=== PATIENT | female | born 1970 | race Caucasian/White ===

== ENCOUNTER → 2017-09-14 09:47 | Outpatient (CLI) | payer OTHER, SELFPAY ==
--- NOTE | 2017-09-14 09:50 | US_ITS ---
STUDY: ULTRASOUND BREAST - RIGHT REASON FOR EXAM: Female, 47 years old. Palpable lump in the right breast. TECHNIQUE: Axial and longitudinal images of the RIGHT breast were performed with a high resolution ultrasound transducer. COMPARISON: Comparison is made with prior mammogram than earlier today. FINDINGS: RIGHT Breast: The palpable abnormality corresponds to a 1.7 cm x 1.1 cm irregular lobulated hypoechoic nodular mass at the 1:00 position breast at 5 cm from nipple. This lies anterior to the breast implant. Increased flow is seen within it. A biopsy is recommended for further evaluation. US/Breast Limited Unilateral IMPRESSION: 1.7 cm x 1.1 cm suspicious hypoechoic nodule at the 1:00 position in the breast at 5 cm from the nipple. A biopsy is recommended. ASSESSMENT CATEGORY: BIRADS Category 4: Suspicious - Biopsy Should Be Considered. A letter regarding these results will be sent to the patient by the facility within 30 days. Electronically Signed: Jacques Lockwood MD at 12:42 EDT Tel [phone], Service support ,
--- NOTE | 2017-09-14 10:03 | BI_ITS ---
MAMMOGRAPHY - BILATERAL DIAGNOSTIC REASON FOR EXAM: Female, 47 years old. One-month history of right breast lump at the 12 to 1:00 position in the breast. Bilateral breast implants. PERTINENT HISTORY: Non-contributory. TECHNIQUE: Digital bilateral breast terell (3D mammographic acquisition) in the CC and MLO projections. 2-D mediolateral oblique (MLO) and craniocaudad (CC) views of both breasts were obtained. CAD: Full Field Digital Mammography with Computer Added Detection was performed. COMPARISON: Comparison is made with prior study dated February 17, 2013 and February 14, 2012. FINDINGS: Breast Composition: The breasts are heterogeneously dense, which may obscure small masses. There are no dominant masses or suspicious calcifications. Lateral breast implants are seen. These are unchanged. No other significant abnormalities are identified. There has been no significant change since the prior study. BI/DIAG MAMM W/CAD, BILAT IMPRESSION: Stable bilateral diagnostic mammogram. With the patient's history of a palpable abnormality in the right breast, correlation with an ultrasound of the right breast is recommended. ASSESSMENT CATEGORY: BIRADS Category 0: Incomplete. Need additional imaging evaluation. A letter regarding these results will be sent to the patient by the facility within 30 days. Approximately 10% of breast cancers are not detected by mammography. A normal mammogram should not delay biopsy of a clinically suspicious abnormality. Electronically Signed: Jacques Lockwood MD at 12:36 EDT Tel [phone], Service support ,
== END ==
PROVIDERS: Visit Provider Obstetrics & Gynecology
DX: N63.10 Unspecified lump in the right breast, unspecified quadrant (principal)
CPT/HCPCS: 76642; 77062; 77066; G0279

== ENCOUNTER → 2017-09-25 14:00 | Outpatient (CLI) | payer OTHER, SELFPAY ==
--- NOTE | 2017-09-25 | IMM_PTH ---
PATIENT: CAMILA LANDIS LOC: [facility] U#:[id number] AGE/SX: 54/F ROOM: RE09/25/[address]: Dr. Dain Melo MD : 1970 BED: DIS: SPEC #: [id number] RECD: 09/27/17 12:30 STATUS: HAYDE RENael #: [id number] SHELDON: 09/25/17 00:[address]: Dain Melo DEPT: IMMUNOHISTOCHEMISTRY RECD BY: Mayra Nixon Tissues: Right breast, NOS Procedures: CALPONIN-1 (add) CK5-6 (add) CK8 (add) E-CAD (add) HER2 NEVA (add) KI-67 (add) P53 (add) WI (add) IN SITU HYBRIDIZATION P40 (add) ER (initial) PHYSICIAN & INSTITUTION [place] [address] SPECIMEN INFORMATION: Tissue Source: Right breast Clinical Info: Right breast palpable lump Specimen Number: [id number] CPT code: 75685, 39990 x6, 49657 x3 METHODOLOGY: Deparaffinized sections of prefer/formalin-fixed tissue or PAP/DQ stained slides are incubated with monoclonal/polyclonal antibodies/oligonucleotide probes. Localization is made via biotin free immunoperoxidase method. Appropriate controls are performed and reacted as expected. Results on target cell population are indicated in the following table: RESULTS: ANTIBODY / CLONE RESULT P53 (DO-7) Ki-67 (30-9) positive, low CK8 ([id number]) positive CK5-6 (D5 & 1684) negative Calponin-1 (XT788H) negative P40 (BC28) negative E-Cad (ECH-6) positive MORPHOMETRIC ANALYSIS ER (clone 6F11) >95%, strong WI (clone 16/1E2) 82%, moderate Her-2Neu (clone CB11) 1-2+ The prognostic test for HER2 is performed on formalin-fixed paraffin embedded tissue. A 3+ (positive) staining pattern is defined as intense, homogeneous, complete, circumferential membranous staining in >10% of contiguous tumor cells. A similar weak (2+) staining pattern is interpreted as equivocal. ALEKSANDAR follow-up testing is recommended for all equivocal cases. Positivity/negativity for ER/WI is reported if > or < 1% of the tumor cells are immuno- reactive, respectively. The ASCO/CAP criteria is used for scoring. Reference: Journal of Clinical Oncology, 2013; 31:5987-4415 & 2010; 16:2686-7816. Duration of fixation: __ Hrs; Sample Adequate: Yes. These assays have not been validated on decalcified tissues. Results should be interpreted with caution given the likelihood of false negativity on decalcified specimens. These tests were developed and their performance characteristics determined by [facility]. They may not have been cleared or approved by the U.S. Food and Drug Administration. The FDA has determined that such clearance or approval is not necessary. 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 Positive for estrogen receptors (favorable prognostic indicator). Positive for progesterone receptors (favorable prognostic indicator). Equivocal for overexpression of RMY7rja. AM:martín 09/28/17 ADDENDUM ADDENDUM ADDENDUM ADDENDUM ADDENDUM ADDENDUM ADDENDUM ADDENDUM ADDENDUM ADDENDUM ADDENDUM ADDENDUM ADDENDUM ADDENDUM ADDENDUM ADDENDUM ADDENDUM ADDENDUM ADDENDUM ADDENDUM ADDENDUM 10/03/2017 09:54 ADDENDUM 10/03/2017 09:54 ADDENDUM 10/03/2017 09:54 ADDENDUM 10/03/2017 09:54 ADDENDUM 10/03/2017 09:54 IN SITU HYBRIDIZATION (ALEKSANDAR) FOR HER2 Interpretation: Not Amplified HER2 : CEP-17 Ratio: 1.81 Average HER2 Signal: 2.9 Average CEP-17 Signal: 1.6 Number of Tumor Cells Scanned: 50 Interpretative Information: The INFORM HER2 Dual ALEKSANDAR DNA Probe Cocktail assay is performed on formalin-fixed paraffin embedded tissue and determines HER2 gene status by detecting HER2 copies via silver in situ hybridization (SISH) and Chromosome 17 copies via chromogenic red in situ hybridization on tumor cells. A minimum of 20 cells representing > 10% of contiguous and homogeneous invasive tumor cells were analyzed. HER2 gene status is classified as Non-amplified (HER2/Chr17 ratio < 2.0) or Amplified (HER2/Chr17 ratio greater than or equal to 2.0). If the resulting HER2/Chr17 ratio falls within 1.8 - 2.2 (Borderline), retesting by FISH is recommended. Reference: Marleny AC, Dena RUSH, Yoli FOURNIER, et al: Recommendations for Human Epidermal Growth Factor Receptor 2 Testing in Breast Cancer: [place] [employer] of Clinical On[employer] / [employer] [place] [employer] Clinical Practice Guideline Update. J Clin Oncol 31:3900-8163, 2013.
--- NOTE | 2017-09-25 | BRBX_PTH ---
PATIENT: CAMILA LANDIS LOC: [facility] U#:[id number] AGE/SX: 54/F ROOM: RE09/25/[address]: Dr. Dain Melo MD : 1970 BED: DIS: SPEC #: [id number] RECD: 09/26/17 11:40 STATUS: HAYDE MITRA #: [id number] SHELDON: 09/25/17 00:[address]: Dain Melo DEPT: SURGICAL PATHOLOGY RECD BY: Marixa Henning Tissues: Right breast, NOS Procedures: Surgery Specimen Level IV HEADER OPERATION: Ultrasound-guided right breast biopsy PRE-OP DIAGNOSIS: Right breast palpable lump TISSUE SUBMITTED: Right breast biopsy ISCHEMIC TIME: 1 minute MICROSCOPIC DIAGNOSIS Right breast, ultrasound-guided core biopsy: Invasive ductal carcinoma: Maximal length - 8 mm Nuclear grade ? 2/3 AM:martín 09/27/17 COMMENT ER/SD/Pag4fda studies are being performed on sections of tumor and the results from this study will be reported separately ([id number]). MICROSCOPIC DESCRIPTION Slides are reviewed. GROSS DESCRIPTION Received in fixative is one container labeled with the patient's name and designated right breast. The specimen consists of multiple irregular and elongated fragments of yellow-white soft tissue that in aggregate measure 1.2 x 0.7 x 0.1 cm. The specimen is totally submitted in one cassette. / AM:martín 09/26/17 TC:0 CPT: 26331 ADDENDUM ADDENDUM ADDENDUM ADDENDUM ADDENDUM ADDENDUM ADDENDUM ADDENDUM ADDENDUM ADDENDUM 11/14/2017 14:17 ADDENDUM 11/14/2017 14:17 ADDENDUM 11/14/2017 14:17 ADDENDUM 11/14/2017 14:17 ADDENDUM 11/14/2017 14:17 This addendum is added to incorporate an outside pathology consultation report. The case was examined at [facility] (#[id number]) and the following diagnosis was rendered. Right breast, ultrasound-guided core biopsy: Invasive mammary carcinoma, nuclear grade 2. Please see complete above mentioned consultation report in EMR
== END ==
PROVIDERS: Visit Provider Surgery
DX: C50.911 Malignant neoplasm of unspecified site of right female breast (principal)
CPT/HCPCS: 88305; 88341; 88342; 88368

== ENCOUNTER → 2018-02-25 16:29 | Outpatient (CLI) | payer OTHER, SELFPAY ==
[2018-02-25 17:33] LABS: Absolute Lymphocyte Count 1.75 X10^3/ul (0.83-4.51); Absolute Neutrophil Count 4.8 X10^3/uL (2.0-7.7); Basophil# 0.02 X10^3/uL; Basophil% 0.3 % (0-1); Eosinophil# 0.12 X10^3/uL; Eosinophils% 1.7 % (0-5); Hematocrit 39.5 % (37-47); Hemoglobin 12.8 g/dl (12.0-15.0); Lymphocyte # 1.75 X10^3/ul (4.0); Mean Corp Hgb Conc 32.4 g/gl (32-36); Mean Corpuscular Volume 89.4 fL (81-99); Mean Platelet Vol. 10.1 fl (6.2-12.0); Monocyte# 0.33 X10^3/uL; Monocyte% 4.7 % (0-10); Neutrophil # 4.78 X10^3/uL (2.7-7.7); Neutrophil % 68.2 % (47-70); POSITIVE COUNT NO; POSITIVE DIFFERENTIAL NO; POSITIVE MORPHOLOGY NO; Platelet Count 251 K/mm3 (150-450); RBC Distribution Width CV 13.5 % (11.6-14.6); RBC Distribution Width SD 44.3 fl (35.1-43.9); Red Blood Count 4.42 M/mm3 (4.2-5.4)
[2018-02-25 17:47] LABS: ALB/GLOB Ratio 1.1 RATIO (0.9-2.4); AST(SGOT) 13 U/L (15-37); Alanine Aminotransfer ALT/SGPT 16 U/L (13-56); Albumin, Serum 4.1 g/dL (3.2-5.0); Alkaline Phosphatase 88 U/L (45-117); Anion Gap 7 (5-15); BUN 9 mg/dL (7-18); BUN/Creat Ratio 12.2 RATIO (10-20); Calcium,Total 8.7 mg/dL (8.5-10.1); Chloride 105 mmol/L (98-107); Creatinine, Serum 0.74 mg/dL (0.55-1.02); EST Glomerular Filtration Rate 89 mL/min (>60); Est Glom Filt Rate - Afr Amer 108 mL/min (>60); Globulin 3.7 g/dL (2.2-4.2); Glucose 82 mg/dL (74-106); Potassium 3.3 mmol/L (3.5-5.1); Protein, Total 7.8 g/dL (6.4-8.2); Sodium Level 141 mmol/L (136-145)
== END ==
PROVIDERS: Visit Provider Family Medicine
DX: Z01.818 Encounter for other preprocedural examination (principal)
CPT/HCPCS: 36415; 80053; 85025

== ENCOUNTER → 2018-12-13 16:01 | Outpatient (CLI) | payer OTHER, SELFPAY ==
[2018-12-13 10:52] VITALS: BMI 29.4
[2018-12-20 11:42] LABS: HPV APTIMA, High Risk Negative (Negative)
== END ==
PROVIDERS: Referring Provider Obstetrics & Gynecology; Visit Provider Obstetrics & Gynecology
DX: Z12.4 Encounter for screening for malignant neoplasm of cervix (principal); N76.0 Acute vaginitis
CPT/HCPCS: 87070; 87205; 87624; 88175; G0145

== ENCOUNTER → 2018-12-19 12:11 | Outpatient (CLI) | payer OTHER, SELFPAY ==
[2018-12-13 10:52] VITALS: BMI 29.4
--- NOTE | 2018-12-19 12:13 | US_ITS ---
STUDY: ULTRASOUND TRANSVAGINAL CLINICAL: Female, 48 years old. Abnormal uterine bleeding. Bleeding with intercourse. TECHNIQUE: Transvaginal COMPARISON: None. FINDINGS: Uterus is anteverted and midline, measuring 6.0 x 4.5 x 2.6 cm. There are no myometrial masses. Normal endometrial thickness measuring 3 mm. Endometrium is hyperechoic. There are no endometrial masses, and there is no fluid in the endometrial cavity. Normal uterine cervix. 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 There is no evidence of adnexal mass. There is no free fluid in the pelvis. US/Pelvic (Non ) IMPRESSION: 1. Normal appearing uterus. 2. Nonvisualization of the ovaries in keeping with evidence of bilateral oophrectomy. There is no evidence of adnexal mass. Electronically Signed: Nash Case DO at 17:23 EDT Tel [phone], Service support ,
--- NOTE | 2018-12-19 12:35 | US_ITS ---
STUDY: ULTRASOUND TRANSVAGINAL CLINICAL: Female, 48 years old. Abnormal uterine bleeding. Bleeding with intercourse. TECHNIQUE: Transvaginal COMPARISON: None. FINDINGS: Uterus is anteverted and midline, measuring 6.0 x 4.5 x 2.6 cm. There are no myometrial masses. Normal endometrial thickness measuring 3 mm. Endometrium is hyperechoic. There are no endometrial masses, and there is no fluid in the endometrial cavity. Normal uterine cervix. 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 There is no evidence of adnexal mass. There is no free fluid in the pelvis. US/Transvaginal Non- IMPRESSION: 1. Normal appearing uterus. 2. Nonvisualization of the ovaries in keeping with evidence of bilateral oophrectomy. There is no evidence of adnexal mass. Electronically Signed: Nash Case DO at 17:23 EDT Tel [phone], Service support ,
== END ==
PROVIDERS: Family Provider Family Medicine; PCP Family Medicine; Referring Provider Obstetrics & Gynecology; Visit Provider Obstetrics & Gynecology
DX: N93.9 Abnormal uterine and vaginal bleeding, unspecified (principal)
CPT/HCPCS: 76830; 76856

== ENCOUNTER 2021-07-04 18:39 | Outpatient (CLI) | payer OTHER, SELFPAY | END 2021-07-04 23:59 | disposition short-term general hospital (02) | PROVIDERS: PCP Family Medicine; Visit Provider Family Medicine | DX: U07.1 COVID-19 (principal) | CPT/HCPCS: 87635; U0003; U0005 ==

== ENCOUNTER → 2022-08-03 | Outpatient (CLI) | payer OTHER, SELFPAY ==
[2022-08-12 12:33] LABS: HPV APTIMA, High Risk Negative (Negative)
== END | disposition home or self-care (01) ==
PROVIDERS: PCP Family Medicine; Visit Provider Obstetrics & Gynecology
DX: Z12.4 Encounter for screening for malignant neoplasm of cervix (principal)
CPT/HCPCS: 87624; 88175; G0145

== ENCOUNTER → 2022-10-06 | Outpatient (CLI) | payer OTHER, SELFPAY ==
--- NOTE | 2022-10-06 06:49 | EKG12_ITS ---
Test Reason : HIGH CHOLESTEROL Blood Pressure : / mmHG Vent. Rate : 070 BPM Atrial Rate : 070 BPM P-R Int : 160 ms QRS Dur : 072 ms QT Int : 422 ms P-R-T Axes : 059 044 055 degrees QTc Int : 455 ms Normal sinus rhythm Normal ECG No previous ECGs available Confirmed by KIM KRAUSE, ZAY ([id number]), editor at large GIORGIO CLEARY ([id number]) on 10/09/2022 2:31:59 PM Referred By: Alexia Porter Confirmed By:ELODIA ALVAREZ MD
[2022-10-06 07:24] LABS: Absolute Neutrophil Count 3.2 X10^3/uL (2.0-7.7); Basophil# 0.02 X10^3/uL; Basophil% 0.4 % (0-1); Eosinophil# 0.11 X10^3/uL; Eosinophils% 2.3 % (0-5); Hematocrit 40.6 % (37-47); Lymphocyte % 25.2 % (19-41); Mean Corpuscular Hgb 29.7 pg (27.0-32.0); Mean Corpuscular Volume 92.7 fL (81-99); Mean Platelet Vol. 10.5 fl (6.2-12.0); Monocyte# 0.28 X10^3/uL; Monocyte% 5.9 % (0-10); NRBC Flagged by Analyzer 0 % (0-5); Neutrophil # 3.15 X10^3/uL (2.7-7.7); Platelet Count 226 K/mm3 (150-450); RBC Distribution Width CV 12.8 % (11.6-14.6); RBC Distribution Width SD 43.7 fl (35.1-43.9); Red Blood Count 4.38 M/mm3 (4.2-5.4); White Blood Count 4.8 K/mm3 (4.4-11.0)
[2022-10-06 08:08] LABS: Vitamin D,25 Hydroxy 45.8 ng/mL
[2022-10-06 08:18] LABS: Hemoglobin A1c 5.4 % (3.8-5.6)
[2022-10-06 08:19] LABS: AST(SGOT) 14 U/L (15-37); Alanine Aminotransfer ALT/SGPT 20 U/L (13-56); Albumin, Serum 3.6 g/dL (3.2-5.0); Alkaline Phosphatase 73 U/L (45-117); Anion Gap 4 (5-15); BUN 14 mg/dL (7-18); BUN/Creat Ratio 19.6 RATIO (10-20); Calcium,Total 8.8 mg/dL (8.5-10.1); Chloride 108 mmol/L (98-107); Cholesterol 227 mg/dL (200); Creatinine, Serum 0.72 mg/dL (0.55-1.02); EST Glomerular Filtration Rate 91 mL/min (>60); Est Glom Filt Rate - Afr Amer 110 mL/min (>60); Globulin 3.7 g/dL (2.2-4.2); Glucose 110 mg/dL (74-106); High Density Lipoprotein 59 mg/dL; Potassium 3.9 mmol/L (3.5-5.1); Protein, Total 7.3 g/dL (6.4-8.2); Sodium Level 142 mmol/L (136-145); Triglycerides 119 mg/dL; Very Low Density Lipoprotein 24 mg/dL (5-40)
== END | disposition home or self-care (01) ==
PROVIDERS: PCP Family Medicine; Referring Provider Obstetrics & Gynecology; Visit Provider Obstetrics & Gynecology
DX: E78.00 Pure hypercholesterolemia, unspecified (principal)
CPT/HCPCS: 36415; 80053; 80061; 82306; 83036; 85025; 93005

== ENCOUNTER → 2023-12-11 | Outpatient (CLI) | payer OTHER, SELFPAY ==
[2023-12-14 20:07] LABS: HPV APTIMA, High Risk Negative (Negative)
== END | disposition home or self-care (01) ==
LOC: LABSPEC 16:08
PROVIDERS: Referring Provider Obstetrics & Gynecology; Visit Provider Obstetrics & Gynecology
DX: Z78.0 Asymptomatic menopausal state (principal)
CPT/HCPCS: 87624; 88175; G0145

== ENCOUNTER → 2024-02-22 | Outpatient (CLI) | payer OTHER, SELFPAY ==
[2024-02-22 09:49] LABS: Vitamin D,25 Hydroxy 25.1 ng/mL
[2024-02-22 09:55] LABS: Cholesterol 206 mg/dL (200); Glucose 95 mg/dL (74-106); High Density Lipoprotein 74 mg/dL; Triglycerides 93 mg/dL; Very Low Density Lipoprotein 19 mg/dL (5-40)
[2024-02-22 10:04] LABS: Hemoglobin A1c 5.3 % (3.8-5.6)
== END | disposition home or self-care (01) ==
LOC: LAB 08:41
PROVIDERS: PCP Family Medicine; Referring Provider Obstetrics & Gynecology; Visit Provider Obstetrics & Gynecology
DX: Z13.29 Encounter for screening for other suspected endocrine disorder (principal); Z13.220 Encounter for screening for lipoid disorders; Z13.1 Encounter for screening for diabetes mellitus; Z13.21 Encounter for screening for nutritional disorder
CPT/HCPCS: 36415; 80061; 82306; 82947; 83036; 84443

== ENCOUNTER → 2025-01-01 | Outpatient (CLI) | payer OTHER, SELFPAY ==
[2025-01-01 10:18] LABS: Hematocrit 41.9 % (37-47); Hemoglobin 13.5 g/dL (12.0-15.0); Immature Granulocytes Count 0.020 X10^3/uL (0.0-0.0); Mean Corp Hgb Conc 32.2 g/dL (32-36); Mean Corpuscular Volume 91.7 fL (81-99); Mean Platelet Vol. 10.4 fl (6.2-12.0); NRBC Flagged by Analyzer 0 % (0-5); Platelet Count 243 K/mm3 (150-450); RBC Distribution Width CV 12.9 % (11.6-14.6); RBC Distribution Width SD 43.4 fl (35.1-43.9); Red Blood Count 4.57 M/mm3 (4.2-5.4); White Blood Count 5.3 K/mm3 (4.4-11.0)
--- OUTSIDE RECORDS SUMMARY | 2025-01-01 10:26 | XMS RPT_ITS | CCD ---
Author Organization [facility] Care Team Providers Care Senior Sales Operations Manager Name Role Phone Alexia Porter MD Unavailable [phone] Zeny Ricardo MD Primary Care Provider Fausto JULIEN, Breanna Unavailable Unavailable Zeny Ricardo MD Primary Care Provider Fausto JULIEN, Breanna Unavailable Unavailable Dr. Toshia Kingsley Primary Care Provider Dr. Toshia Kingsley Referring Provider [phone] Alexia Porter Attending Provider Zeny Ricardo MD Primary Care Provider Fausto JULIEN, Breanna Unavailable Unavailable Mellisa BINGO MANAGER, Elizabeth Unavailable [phone] Toshia Kingsley Primary Care Provider Dr. Toshia Kingsley Referring Provider [phone] Alexia Porter Attending Provider [phone] Dr. Jimmie Ricardo Primary Care Provider [phone] Dr. Ye Cisneros Attending Provider [phone] Dr. Alexia Porter Referring Provider Zeny Ricardo MD Primary Care Provider Fausto JULIEN, Breanna Unavailable Unavailable Zeny Ricardo MD Primary Care Provider Mellisa BINGO MANAGER, Elizabeth Unavailable [phone] LENA FLEMING Referring Unavailable ZENY RICARDO Primary Care UnavailLENA Coffman Attending Unavailable LENA FLEMING Referring Unavailable RANNEY, CHRISTOPHER B Primary Care Unavailabl e GOOD, HUMA Referring Unavailable RANNEY, CHRISTOPHER B Primary Care Unavailabl e GOOD, HUMA Referring Unavailable RANNEY, CHRISTOPHER B Primary Care Unavailabl LENA Vanessa Attending Unavailable RANNEY, CHRISTOPHER B Primary Care Unavailabl e DAVION, CHRISTOPHER B Primary Care Unavailabl e RODRI SYED Attending Unavailable Davion KRAUSE, Dr. Tillman Primary Care Provider Dr. Zeny Ricardo MD Referring Provider [phone] Matt VP DIRECTOR OF CREATIVE STRATEGY-C, Janet Attending Provider [phone] Alexia Porter Attending Unavailable Ranney, [facility] Primary Care Unavailable Ranney, Christopher Referring Unavailable Janet Gutierrez Attending Unavailable Ranney, Christopher Referring Unavailable Ranney, [facility] Primary Care Unavailable Janet Gutierrez Attending Unavailable Ranney, Christopher Referring Unavailable Ranney, [facility] Primary Care Unavailable Janet Gutierrez Attending Unavailable Ranney, Christopher Referring Unavailable Ranney, [facility] Primary Care Unavailable Alexia Porter Attending Unavailable Care Physician, No Primary Primary Care Unava ilable Care Physician, No Primary Referring Unava ilable Alexia Porter Attending Unavailable Alexia Porter Referring Unavailable Ranney, [facility] Primary Care Unavailable Alexia Porter Attending Unavailable Ranney, [facility] Primary Care Unavailable Ranney, Christopher Referring Unavailable Allergies Allergy Classification Reported Allergen(s) Allergy Type Date of Onset Reaction(s) Facility (20 sources) Promethazine; Translations: [PROMETHAZINE] Drug Allergy 1 Mental Status Change [facility] (1 source) Promethazine Drug Allergy 5 [facility] Repository Medications Current Medications Medication Drug Class(es) Dates Sig (Normalized) Sig (Original) amoxicillin 875 mg / clavulanate 125 mg oral tablet (1 source) Penicillin-class Antibacterial Start: 11-02-2021 End: 11-09-2021 take 1 tablet by mouth twice daily amoxicillin-clavulan ic acid (AUGMENTIN) 875-125 mg per tablet Take 1 tablet by mouth twice daily for 7 days. 14 tablet 0 11/02/2021 11/09/2021 Active Comment on above: Take 1 tablet by elvis th twice daily for 7 days. Calcium Carb, Citrate-Vit D3 (Citracal-D3 Slow Release) 600 mg-12.5 mcg (500 unit) tablet extended release (2 sources) Start: 11-02-2023 Calcium Carb, Citrate-Vit D3 (Citracal-D3 Slow Release) 600 mg-12.5 mcg (500 unit) tablet extended release Active {tbl} PO November 02, 2023 12:00am calcium citrate/vitamin D3 (CITRACAL + D ORAL) (11 sources) calcium citrate/vitamin D3 (CITRACAL + D ORAL) Take by mouth once daily. Active cholecalciferol 1.25 mg oral capsule (2 sources) Vitamin D Start: 11-18-2024 take 1 capsule by mouth every week Cholecalciferol (Vitamin D3) 1,250 mcg (50,000 unit) capsule Active 1250 ug PO EVERY WEEK November 18, 2024 12:00am iv contrast (will be provided with radiology test) (4 sources) Start: 04-04-2024 End: 04-05-2024 iv contrast (will be provided with radiology test) MRI Breast DANK Inject, intravenously, once for 1 dose. No IV access, insert saline lock prior to the beginning of sedation, infusion, injection of imaging exam. Discontinue saline lock post exam. If Pt has a central line or IVAD, may access for administration according to line specific nursing protocol. Once exam is complete flush line and de-access according to line specific nursing protocol in the MR contrast administration guidelines link 1 Each 04/04/2024 04/05/2024 Active Start: 03-30-2023 End: 03-31-2023 iv contrast (will be provide d with radiology test) MRI Breast DANK Inject, intravenously, once for 1 dose. No IV access, insert saline lock prior to the beginning of sedation, infusion, injection of imaging exam. Discontinue saline lock post exam. If Pt has a central line or IVAD, may access for administration according to line specific nursing protocol. Once exam is complete flush line and de-access according to line specific nursing protocol in the MR contrast administration guidelines link 1 Each 0 03/30/2023 03/31/2023 Active Start: 03-17-2022 End: 03-18-2022 iv contrast (will be provide d with radiology test) MRI Breast DANK Inject, intravenously, once for 1 dose. No IV access, insert saline lock prior to the beginning of sedation, infusion, injection of imaging exam. Discontinue saline lock post exam. If Pt has a central line or IVAD, may access for administration according to line specific nursing protocol. Once exam is complete flush line and de-access according to line specific nursing protocol in the MR contrast administration guidelines link 1 Each 0 03/17/2022 03/18/2022 Active Comment on above: MRI Breast DANK Injec t, intravenously, once for 1 dose. No IV access, insert saline lock prior to the beginning of sedation, infusion, injection of imaging exam. Discontinue saline lock post exam. If Pt has a central line or IVAD, may access for administration according to line specific nursing protocol. Once exam is complete flush line and de-access according to line specific nursing protocol in the MR contrast administration guidelines link Multivitamin preparation (2 sources) Start: 08-04-19 take 1 tablet by mouth once daily Multivitamin Active 1 TABLET PO DAILY August 03, 2022 1:00am Start: 08-03-2022 take 1 tablet by elvis th once daily Multivitamin Active 1 TABLET PO DAILY August 03, 2022 12:00am nitrofurantoin, macrocrystals 25 mg / nitrofurantoin, monohydrate 75 mg oral capsule (2 sources) Nitrofuran Antibacterial Start: 10-07-2024 End: 10-12-2024 take 1 capsule by mouth twice daily nitrofurantoin monohydrate and macrocrystal (MACROBID) 100 mg capsule Indications: Urinary tract infection without hematuria, site unspecified Take 1 capsule by mouth two times a day for 5 days. 10 capsule 10/07/2024 10/12/2024 Active phentermine hydrochloride 37.5 mg oral tablet (20 sources) Sympathomimetic Amine Anorectic Start: 11-02-2023 End: 11-18-2024 Phentermine (Adipex-P) 37.5 mg tablet Active 18.75 mg PO daily 16 November 18, 2024 1:43pm BMI 24 starting BMI was 32 Start: 11-30-2022 End: 11-02-2023 Phentermine (Adipex-P) 37.5 mg tablet Discontinued 18.75 mg PO daily 15 August 27, 2023 11:02am November 02, 2023 10:33pm BMI 25 take 0.5 tablet by m outh once daily phentermine HCl (PHENTERMINE ORAL) Take 0.5 tablets by mouth once daily. Active take 0.5 tablet by m outh once daily phentermine HCl (PHENTERMINE ORAL) Take 0.5 tablets by mouth once daily. 0 Active Comment on above: Take 0.5 tablets by mouth once daily. Ynronzt-Bieh-Iiduv-Oreg -Capryl (2 sources) Start: 08-03-2022 Bjcjlrl-Rvwv-Jiglj-Or eg-Capryl Active CAP PO August 03, 2022 1:00am Start: 08-03-2022 Iflxana-Pbir-U cwjj-Efxb-Ejbcyp Active CAP PO August 03, 2022 12:00am Completed/Discontinued Medications Medication Drug Class(es) Dates Sig (Normalized) Sig (Original) ergocalciferol 1.25 mg oral capsule (3 sources) Provitamin D2 Compound Start: 11-03-2024 End: 05-02-2025 take 1 capsule by mouth every week, then take 1 capsule by mouth two times weekly ergocalciferol 50,000 unit capsule (VITAMIN D2, DRISDOL) Take 1 capsule by mouth one time a week. TAKE ONE TWICE WEEKLY - RECHECK LEVEL IN 2 MONTHS 12 capsule 1 11/03/2024 11/03/2024 Discontinued exemestane 25 mg oral tablet (5 sources) Aromatase Inhibitor Start: 12-13-2018 End: 08-03-2022 take 1 tablet by mouth once daily Exemestane (Aromasin) 25 mg tablet Discontinued 25 mg PO DAILY December 13, 2018 12:00am August 03, 2022 5:21pm letrozole 2.5 mg oral tablet (5 sources) Aromatase Inhibitor Start: 07-25-2021 End: 03-17-2022 take 1 tablet by mouth once daily letrozole (FEMARA) 2.5 mg tablet Take 1 tablet by mouth once daily. 90 tablet 3 07/25/2021 03/17/2022 Discontinued Comment on above: Take 1 tablet by elvis th once daily. Multivitamin tablet (2 sources) Start: 08-03-2022 End: 11-02-2023 Multivitamin tablet Discontinued 1 {tbl} PO DAILY August 03, 2022 1:00am November 02, 2023 3:31pm tamoxifen 20 mg oral tablet (20 sources) Estrogen Agonist/Antagoni st Start: 03-17-2022 End: 11-03-2024 take 1 tablet by mouth once daily Tamoxifen 20 mg tablet Discontinued 20 mg PO DAILY August 03, 2022 1:00am May 29, 2024 11:42am Comment on above: Take 1 tablet (20 mg ) by mouth once daily. take 1 tablet once d aily Iwqisbec-Xaar-Qobmy- Oreg-Capry 100 mg-150 mg- 50 mg-150 mg capsule (2 sources) Start: 08-03-2022 End: 11-02-2023 Wfriyyue-Slmw-Cinqp- Oreg-Capry 100 mg-150 mg- 50 mg-150 mg capsule Discontinued NMA PO August 03, 2022 1:00am November 02, 2023 3:33pm Problems Active Problems Problem Classification Problem Date Documented Date Episodic/Chronic Acquired foot deformities (1 source) Acquired left hallux valgus; Translations: [Hallux valgus (acquired), left foot] Chronic Cancer of breast (20 sources) Malignant neoplasm of upper-inner quadrant of female breast; Translations: [Malignant neoplasm of upper-inner quadrant of right female breast] Onset: 09-30-19 18 11-16-2017 Chronic Comment on above: discussed weight red uction to reduce recurrence risk. on tamoxifen. Disorders of lipid metabolism (20 sources) Hyperlipidemia; Translations: [Hyperlipidemia, unspecified] Onset: 03-24-20 09 04-05-2011 Chronic Comment on above: dietary changes and weight reduction recommended. Genitourinary symptoms and ill-defined conditions (2 sources) Increased frequency of urination; Translations: [Frequency of micturition] Onset: 10-08-19 25 10-07-2024 Episodic Miscellaneous mental health disorders (1 source) Abnormal female sexual function; Translations: [Unspecified sexual dysfunction not due to a substance or known physiological condition] 04-04-2024 Chronic Mood disorders (20 sources) Premenstrual dysphoric disorder; Translations: [Premenstrual dysphoric disorder] Onset: 07-15-19 15 07-15-2014 Chronic Other aftercare (3 sources) H/O: malignant neoplasm; Translations: [Encounter for follow-up examination after completed treatment for malignant neoplasm] Episodic Other aftercare (3 sources) Long-term current use of tamoxifen; Translations: [FPC (current) use of selective estrogen receptor modulators (SERMs)] Episodic Other congenital anomalies (4 sources) Genetic disease; 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, unspecified] 12-13-2018 Chronic Comment on above: 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, s/p oophorectomy Other congenital anomalies (1 source) Chromosomal abnormality, unspecified; Translations: [Conditions due to anomaly of unspecified chromosome] 08-03-2022 Chronic Other connective tissue disease (2 sources) Pain in right foot; Translations: [Pain in right foot] Episodic Other diseases of veins and lymphatics (20 sources) Lymphedema; Translations: [Lymphedema, not elsewhere classified] Onset: 01-21-20 19 01-20-2019 Chronic Other nutritional; endocrine; and metabolic disorders (9 sources) Obesity; Translations: [Other obesity] 10-09-2022 Chronic Comment on above: Nutrition plan: [employer] nced calorie restricted nutritional plan my fitness pal. discussed bore mill operator for plastic consult - not covered. Medication plan: 1/2 tab phentermine. discussed topamax if needed; not now. control- postmenopausalBehavior intervention: discussed weighing at home and if goes above maintenance weight will track intake more closely. Sleep Xdlkaiq-sxwuudpzgy-djuhopcoj; stress management. Exercise plan: encouraged formal exercise during winter months, consider yoga 1x weekly or resistance training 1-2x weekly. Has been lax on her exercise during winter months--planning to become more active in the summer months. weight bearing exercises. Nutrition plan: [employer] nced calorie restricted nutritional plan. discussed bore mill operator for plastic consult - not covered. Mindful eating Medication plan: 1/2 tab phentermine. discussed topamax if needed; not now. control- postmenopausalBehavior intervention: discussed weighing at home and if goes above maintenance weight will track intake more closely. Sleep Zdevdel-jcdjrdkdsh-nftcadfra; stress management. Exercise plan: Getting back into walking outside; consider yoga 1x weekly or resistance training 1-2x weekly. Other nutritional; endocrine; and metabolic disorders (3 sources) Body mass index 30+ - obesity; Translations: [Body mass index (BMI) 32.0-32.9, adult] 10-02-2022 Chronic Other nutritional; endocrine; and metabolic disorders (1 source) Body mass index (BMI) 32.0-32.9, adult; Translations: [Body Mass Index 32.0-32.9, adult] 10-02-2022 Chronic Other nutritional; endocrine; and metabolic disorders (1 source) Other obesity; Translations: [Obesity, unspecified] 10-02-2022 Chronic Other nutritional; endocrine; and metabolic disorders (10 sources) Overweight in adulthood with body mass index of 25 or more but less than 30; Translations: [Body mass index (BMI) 26.0-26.9, adult] 07-22-2023 Episodic Other upper respiratory disease (20 sources) Allergic rhinitis; Translations: [Allergic rhinitis, unspecified] Onset: 02-12-2004-05-2011 Chronic Other upper respiratory infections (1 source) Bacterial sinusitis; Translations: [Chronic sinusitis, unspecified] Chronic Residual codes; unclassified (20 sources) History of bilateral breast implants; Translations: [Breast implant status] Onset: 03-17-20 09 10-23-2017 Chronic Residual codes; unclassified (7 sources) Sleep apnea; Translations: [Sleep apnea, unspecified] 10-09-2022 Chronic Comment on above: didn't tolerate cpap . pulm referral for alternate treatment. s/p 15% weight reduction Residual codes; unclassified (1 source) Sleep apnea, unspecified; Translations: [Unspecified sleep apnea] 10-02-2022 Chronic Residual codes; unclassified (3 sources) Reduced libido; Translations: [Decreased libido] 10-02-2022 Episodic Residual codes; unclassified (1 source) Decreased libido; Translations: [Decreased libido] 10-02-2022 Episodic Residual codes; unclassified (6 sources) Body mass index 20-24 - normal; Translations: [Body mass index (BMI) 24.0-24.9, adult] 11-18-2024 Episodic Comment on above: SW- 182 10/02; down to 138lb currently. s/p 18% weight reduction with nutritional and medication intervention recommendations. ultimate goal bmi 25--met this.initial obesity assessment lab panel reviewed; follow up 02/2024 reviewed; due repeat at next visit. SW- 182 10/02; down to 141lb currently. s/p 18% weight reduction with nutritional and medication intervention recommendations. ultimate goal bmi 25--met this.initial obesity assessment lab panel reviewed; follow up 02/2024 reviewed; due repeat at next visit. Unclassified (1 source) Gynecologic examination ; Translations: [Encounter for gynecological examination (general) (routine) without abnormal findings] Onset: 12-19-19 17 12-18-2016 Unclassified (1 source) Patient encounter status 11-03-2024 Urinary tract infections (20 sources) Recurrent urinary tract infection; Translations: [Urinary tract infection, site not specified] Onset: 03-06-20 11 04-05-2011 Episodic Past or Other Problems Problem Classification Problem Date Documented Date Episodic/Chronic Cancer of breast (20 sources) History of malignant neoplasm of breast; Translations: [Personal history of malignant neoplasm of breast] Onset: 04-09-2018 04-09-2018 Episodic Nonmalignant breast conditions (20 sources) Breasts asymmetrical; Translations: [Disproportion of reconstructed breast] Onset: 11-29-2017 11-29-2017 Episodic Other aftercare (20 sources) Prophylactic aromatase inhibitors given; Translations: [FPC (current) use of aromatase inhibitors] Onset: 06-01-2020 06-01-2020 Episodic Other aftercare (1 source) FPC (current) use of aromatase inhibitors; Translations: [Aromatase inhibitor use] Onset: 06-01-2020 Episodic Other female genital disorders (20 sources) Vaginal dryness; Translations: [Other specified noninflammatory disorders of vagina] Onset: 06-01-2020 06-01-2020 Episodic Other non-traumatic joint disorders (20 sources) Multiple joint pain; Translations: [Pain in unspecified joint] Onset: 06-01-2020 06-01-2020 Episodic Other screening for suspected conditions (not mental disorders or infectious disease) (20 sources) Patient encounter status; Translations: [Encounter for screening mammogram for malignant neoplasm of breast] Onset: 01-10-2011 06-01-2020 Episodic Residual codes; unclassified (3 sources) H/O: artificial organ/tissue; Translations: [Other specified postprocedural states] Onset: 11-16-2017 11-16-2017 Episodic Residual codes; unclassified (20 sources) Insomnia; Translations: [Insomnia, unspecified] Onset: 06-01-2020 06-01-2020 Episodic Residual codes; unclassified (20 sources) History of breast reconstruction; Translations: [Other specified postprocedural states] Onset: 11-16-2017 11-16-2017 Episodic Unclassified (1 source) Screening mammography ; Translations: [Encounter for screening mammogram for malignant neoplasm of breast] Onset: 12-18-2016 Resolved: 12-19-2016 12-18-2016 Unclassified (1 source) Breast cancer screening, high risk patient 11-03-2024 Results Test Name Value Interpretation Reference Range Facility Office Visit Reporton 2024 Office Visit Report [facility] [address] [place] [address] OFFICE VISIT Date of Service: 12/18/24 MR#: [id number] Acct: [id number] Patient: FRANCIA BERMUDEZ Rep #: [id number] : 1970 Provider: NIKA Grey Age/Sex: 54/F Location: [facility] [place] Status: Signed with Addenda ADDENDUM by NIKA Gutierrez on 12/29/24 at 0944 Assessment Plan (1) Obesity, unspecified: COMMENT: Nutrition plan: Balanced calorie restricted nutritional plan. discussed bore mill operator for plastic consult - not covered. Mindful eating Medication plan: 1/2 tab phentermine. discussed topamax if needed; not now. control- postmenopausal Behavior intervention: discussed weighing at home and if goes above maintenance weight will track intake more closely. Sleep Vbjshzk-jhakmrytgm-jvj ficult; stress management. Exercise plan: Getting back into walking outside; consider yoga 1x weekly or resistance training 1- 2x weekly. (2) BMI 24.0-24.9, adult: COMMENT: SW- 182 10/02; down to 141lb currently. s/p 18% weight reduction with nutritional and medication intervention recommendations. ultimate goal bmi 25--met this. initial obesity assessment lab panel reviewed; follow up 02/2024 reviewed; due repeat at next visit. (3) High cholesterol: COMMENT: dietary changes and weight reduction recommended. 12/29/24 0944 Date Janet Gutierrez cc: * Signed Intake Vital Signs 11/18/24 13:15 12/18/24 09:01 Height 5 ft 3 in 5 ft 3 in Weight: 141 lb 2 oz 142 lb 2 oz BMI 25.0 25.2 BP 116/76 127/72 H Pulse 72 79 Intake Visit Reasons: 1 M med check Chief Complaint: Weight and BP check for weight management Agricultural Lender Required: No Is patient in pain?: No Allergies promethazine (From Phenergan) Adverse Reaction (Unknown, Verified 12/18/24 09:07) Pt could not remember Medications ???Medication ???Instructions ???Recorded ???Confirmed ???Type calcium ER 600 mg (as carb,cit)-D3 tab PO 11/02/23 12/18/24 History 12.5 mcg (500 unit) tablet, ext.rel (Citracal-D3 Slow Release) cholecalciferol (vitamin D3) 1,250 1,250 mcg PO QWEEK 11/18/2412/02 History mcg (50,000 unit) capsule phentermine 37.5 mg tablet 18.75 mg (1/2 x 37.5 mg) PO QDAY 0 11/18/24 12/18/24 Rx (Adipex-P) #16 tabs Is last menstrual period known: No Post menopausal: Yes Patient : No Have you fallen in the past year?: No Nurse's Note: Patient presents for weight check. Patient states she is taking a half tab of adipex and feels well on this. Patient denies any adverse reactions or side effects from the medication. Patient states she knows that she needs to focus on eating less, but she has increased her movement and has started walking at least 3 miles a day 6x a week. Patient states she is comfortable with her current plan at this time. She has a follow up weight check in January as a NV and then in February she will see CB for a follow up. Questionnaires Weight Management Follow-Up What nutritional plan/diet are you following?: Intermittent fasting How are you tracking your food intake?: My fitness pal On average, how many days a week are you recording your food intake?: 0 How many days a week are you staying within your recommended intake goals?: 5 What is your current weekly exercise?: 3 mile hike 5-6x/week On a scale of 1-10, how difficult is it to follow your current weight management plan?: 1 What are you struggling most with right now in following your weight loss plan?: Sweet cravings Are there any changes we need to make to your current plan right now?: No Side Effects: No Chest Pain, No Palpitations, No Increased Heart Rate, No Irregular Heart Rhythm, No Increased Blood Pressure, No Change in breathing patterns, No Kidney Stones, No Change in vision, No Insomnia, No Difficulty with memory/speech, No Numbness in hands/feet, No New onset severe fatigue, No Nausea/vomiting, No Constipation and No Depressed mood Are there any side effects interfering with quality of life enough you would want to stop medication?: No What's improved for you since losing weight and making your lifestyle change?: Sleep apnea, joint pain, self image Is there anything else we can help you with on your weight loss journey today?: No thanks 12/18/24 1303 Date Janet Ragland Signature: Date (if applicable) CC: Normal [facility] Research Program Intern Office Visit Reporton 11-18-2024 Research Program Intern Office Visit Report [facility] [address], [facility] [address] [place] [address] OFFICE VISIT Date of Service: 11/18/24 MR#: [id number] Acct: [id number] Name: FRANCIA BERMUDEZ Rep #: [id number] : 1970 Provider: NIKA Grey Age/Sex: 54/F [place] [facility] [place]: Signed with Addenda ADDENDUM by NIKA Gutierrez on 12/01/24 at 0744 Assessment and Plan Assessment and Plan (1) High cholesterol: Status: Acute Comment: dietary changes and weight reduction recommended. (2) Sleep apnea: Status: Acute Comment: didn't tolerate cpap. pulm referral for alternate treatment. s/p 15% weight reduction (3) BMI 27.0-27.9,adult: Status: Resolved (4) Breast cancer: Status: Acute Comment: discussed weight reduction to reduce recurrence risk. on tamoxifen. (5) BMI 24.0-24.9, adult: Status: Acute Comment: SW- 182 10/02; down to 141lb currently. s/p 18% weight reduction with nutritional and medication intervention recommendations. ultimate goal bmi 25--met this. initial obesity assessment lab panel reviewed; follow up 02/2024 reviewed; due repeat at next visit. (6) Obesity, unspecified: Status: Acute Comment: Nutrition plan: Balanced calorie restricted nutritional plan. discussed bore mill operator for plastic consult - not covered. Mindful eating Medication plan: 1/2 tab phentermine. discussed topamax if needed; not now. control- postmenopausal Behavior intervention: discussed weighing at home and if goes above maintenance weight will track intake more closely. Sleep Blyznxk-qbwzonlbsb-mvl ficult; stress management. Exercise plan: Getting back into walking outside; consider yoga 1x weekly or resistance training 1- 2x weekly. Medications: Refilled phentermine (Adipex-P) BMI 24 starting BMI was 32 18.75 mg (1/2 x 37.5 mg) PO QDAY 16 tabs 2RF 12/01/24 0744 Date Janet Gutierrez cc: * Signed Intake Vital Signs 08/21/24 15:31 11/18/24 13:15 Height 5 ft 3 in 5 ft 3 in Weight: 138 lb 141 lb 2 oz BMI 24.4 25.0 BP 117/82 H 116/76 Pulse 77 72 Intake Visit Reasons: 3 M FU Agricultural Lender Required: No Is patient in pain?: No Allergies promethazine (From Phenergan) Adverse Reaction (Unknown, Verified 11/18/24 13:18) Pt could not remember Medications ???Medication ???Instructions ???Recorded ???Confirmed ???Type calcium ER 600 mg (as carb,cit)-D3 tab PO 11/02/23 11/18/24 History 12.5 mcg (500 unit) tablet, ext.rel (Citracal-D3 Slow Release) cholecalciferol (vitamin D3) 1,250 1,250 mcg PO QWEEK 11/18/2411/02 History mcg (50,000 unit) capsule phentermine 37.5 mg tablet 18.75 mg (1/2 x 37.5 mg) PO QDAY 0 11/18/24 11/18/24 Rx (Adipex-P) #16 tabs Last Menstrual Period: 08/06/17 Zika: Zika virus screening: Negative : No Have you fallen in the past year?: No PFSH PFSH Medical History Genetic defect Breast cancer, right Surgical History Hx of right mastectomy H/O bilateral oophorectomy H/O breast augmentation Tubal ligation status S/P dilation and curettage uterine ablation Family History Grandfather Lung cancer Social History Smoking Status: Never smoker alcohol intake: current details: occasionally substance use type: does not use caffeine: Yes what type of physical activity do you participate in: none seatbelt use: always do you feel safe at home: Yes 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 Date Name GA/Weeks Outcome Route Bth Weight Gen Labor Lgth Anesthesia Del Locatn Provider FOB Unknown Ernesto-27 Unknown Darci-14 HPI 3 M FU Details: FRANCIA BERMUDEZ is a 54 year old Female presenting for a weight management doing well overall. Taking 1/2 tab phent compliantly. Denies side effects to medication. Has recently felt brain fog however also only gets 2-3 hours of sleep. Her sleep has been inconsistent since childbirth and then medications for her hormones. See's oncology--recommended vit D supplementation with a recheck in 6- 8 weeks. She has not been exercising quite as much; is getting back into this. Female Reproductive History Last Menstrual Period: 08/06/17 ROS Const Reports as per HPI, Denies difficulty sleeping, Denies excessive sweating, Denies fatigue (new onset severe) and Denies fever( (more content not included)... Normal [facility] CNOVSPon 11-03-2024 CNOVSP Visit (SP) Office ([facility]) FRANCIA BERMUDEZ ([id number]) 1970 F Date Time Provider Department 11/03/24 12:00 PM [facility] During your visit today, we recorded the following information about you: Temperature Pulse Respiration Blood pressure 97.5 degrees 93/minute 18/minute 119/78 Weight 64 kg Giovani Cosme LPN 11/03/2024 4:17 PM Signed Additional intake questions: Has the patient had fever, nausea, vomiting, diarrhea, constipation, fatigue for > 1 week? No Does the patient have a decreased appetite? No Does patient want to see a Insurance Account Manager? No (yes to any of above refer patient to schedulers for dietitian appointment) ) Does patient have any new or increased numbness or tingling of extremities? No Does patient need any prescription refills? No Does patient have an advanced directive in place? No, Patient referred to Resource Center Electronically Signed By: SHEMAR Blanchard Machelle, APRN.CNP 11/03/2024 4:17 PM Signed Some elements of all sections of this documentation were copied from my previous note of April 04, 2024 and have been re-examined and updated where appropriate. All elements reflect the current assessment and medical decision making of today, November 03, 2024. ATTENDING PHYSICIAN: Dr. Huma Good IDENTIFICATION: Francia Bermudez is a 54 year old year old woman with T3N0, ER positive, CT positive, Qes4wgk negative (oncotype dx recurrence score of 14), LOBULAR right breast cancer diagnosed in September 2017. She has a known pathogenic RAD51C mutation. REASON FOR VISIT / CHIEF COMPLAINT: Routine 6 month follow up in coordination with her annual breast mammogram for cancer care (alternating with MRI breast) SURVIVORSHIP VISIT: January 08, 2018 CURRENT SYSTEMIC THERAPY FOR BREAST CANCER: None - completed expected course of therapy in May 2024 (after BCI confirmed 6.7% risk of recurrence regardless of extended therapy) PAST THERAPY FOR BREAST CANCER: Right mastectomy with sentinel node procedure and implant reconstruction (Dr. Lobo / Dr. Villela; 5.6 cm, 0/3 nodes positive) Lupron (initiated in December 2017 with subsequent BSO) Exemestane (December 2017 - June 2021) Zoledronic acid (January 2018 - December 02, 2020; received 6 cycles) Letrozole 2.5 mg daily (July 2021 - March 2022) Tamoxifen 20 mg daily (March 2022 - May 2024, after BCI noted NO benefit with extended therapy, 6.7% risk of distant recurrence regardless) INTERVAL HISTORY: Pt presents today with her and reports that she is feeling reasonably well. In February 2024, labs ordered by her manager manufacturing revealed a vitamin D level of 25.1 ng/mL. She has been taking vitamin D supplements, including Citracal and an additional gel cap of 5,000 IU daily, but there was no additional intervention done for the same. She reports leg cramps, eye twitching, hair loss, and difficulty sleeping. She also notes episodes of vertigo triggered by rapid head movements, which have been ongoing for several years. She recently experienced a sensation of a raised area in the right axilla, which she describes as feeling strange. She is concerned about her calcium levels due to being borderline osteoporotic and is currently taking calcium supplements. She engages in weight-bearing exercises, including walking and yoga, but has not been consistent with her yoga practice recently. She is awaiting results from a recent MRI. She otherwise is without any new concerns or discomforts that would be suggestive of recurrent or metastatic disease. She specifically denies any concerning nausea, vomiting, cough, shortness of breath, localized bone pain, headaches or diplopia. SIGNIFICANT (CANCER) FAMILY MEDICAL HISTORY: Mother with uterine cancer (age 40's) Paternal grandmother with breast cancer (in her 50's) Maternal grandfather with lung cancer Was a referral made to medical genetics? Yes, testing was significant for a pathogenic mutation in RAD51C REVIEW OF SYSTEMS: Eyes: (+) eye twitching, (-) double vision Respiratory: (-) cough, (-) shortness of breath Gastrointestinal: (-) nausea, (-) vomiting Musculoskeletal: (+) leg cramps Skin: (+) hair loss Neurological: (+) motion-triggered vertigo, (-) headaches Psychiatric: (+) insomnia Hematologic/Lymphatic: (+) right axillary swelling PHYSICAL EXAMINATION: Physical exam listed below was completed in it's entirety today, November 03, 2024 and is unchanged from April 04, 2024 except where noted in italics. The sensitive examination was discussed with the Patient or Patient's Authorized Miter Operator. As applicable, any other physician, advance practice provider, medical student, or other health professional student that will be observing or involved in the sensitive examination for educational or training purposes was discussed (more content not included)... Normal [facility] MRI BREAST WO/W IVCON BILon 11-03-2024 MRI BREAST WO/W IVCON DANK * * *Final Report* * * DATE OF EXAM: Nov 03 2024 11:10AM [facility] 0773 - MRI BREAST WO/W IVCON DANK / PROCEDURE REASON: Breast cancer screening, high risk patient * * * * Physician Interpretation * * * * [place] [address] #[id number] - MRI BREAST WO/W IVCON DANK HISTORY: 54-year-old woman noted to be at high risk for breast cancer due to RAD51C genetic mutation and personal history of right breast cancer diagnosed in 2018 treated with mastectomy and implant reconstruction presents for evaluation with breast MRI. COMPARISON STUDIES: The present examination has been compared to prior imaging studies dated 07/25/2021 (MRI), 09/04/2022 (MRI), 08/30/2023 (MRI) and 04/04/2024 (mammogram). BREAST MRI: TECHNIQUE: The patient was studied using the dedicated breast coil in the Siemens 1.5 Seema scanner. Initial axial T1W NFS, STIR imaging, silicone suppressed, fat suppressed, and water-suppressed imaging were carried out followed by axial T1-weighted GRE imaging both before and after IV administration of 6.5 ml of Elucirem. Subsequently, subtraction imaging and 3-D reconstruction were completed on an independent workstation. An additional 4 minute high resolution sequence was performed after the first two 1-minute post-contrast sequences. Complex volumetric analysis requiring post processing was performed using a semi-automated software [employer], on an independent workstation by the physician, with images created, reviewed, and archived. FINDINGS: There is heterogeneous fibroglandular tissue. There is minimal background parenchymal enhancement. Imaging findings consistent with provided history of right mastectomy and implant reconstruction. Bilateral subpectoral silicone breast implants are present and appear intact without evidence of intra or extracapsular implant rupture. No suspicious enhancement in either the reconstructed right breast nor within the left breast. No gross internal mammary or axillary adenopathy bilaterally. Postoperative changes demonstrated right axilla. IMPRESSION: No suspicious enhancement in either breast. The bilateral subpectoral silicone breast implants appear intact without evidence of intra or extracapsular implant rupture. Patient will be due for annual screening mammogram in 5 months, sooner if deemed clinically indicated. Breast MRI per ACR/NCCN guidelines. BI-RADS Category 2: Benign Interpreting Radiologist: Katelynn Hrao M.D. Electronically signed on: 11/04/2024 Wall Taper: [email or web address] Transcribe Date/Time: Nov 03 2024 10:25A Dictated by : KATELYNN HARO MD This examination was interpreted and the report reviewed and electronically signed by: KATELYNN HARO MD on Nov 04 2024 12:43PM EST [id number] Normal [facility] Bacteria Ur Culton 5 Bacteria identified Cx Nom (U) ORGANISM ID: 1 >=100,000 CFU/ml Escherichia coli ORGANISM ID: 1 (ESCHERICHIA COLI) -- ANTIBIOTIC INTERPRETATION NINA STATUS REFERENCE RANGE -- Ampicillin S <=2 F Susceptible <=8 , Intermediate >8 , Resistant >16 Cefazolin S <=4 F Susceptible 0-16 , Intermediate <0 or >16 , Resistant >16 For uncomplicated urinary tract infections, cefazolin results can be used to predict susceptibility or resistance to cephalexin. Ceftriaxone S <=1 F Susceptible <=1 , Intermediate >1 , Resistant >=4 Cefepime S <=1 F Susceptible <=2 , Susceptible-Dose Dependent >2 , Resistant >=16 Ertapenem S <=0.5 F Susceptible <=0.5 , Intermediate >.5 , Resistant >1 Meropenem S <=0.25 F Susceptible <=1 , Intermediate >1 , Resistant >2 Ampicillin/Sulbact S <=2 F Susceptible <=8 , Intermediate >8 , Resistant >16 Piperacillin/Tazobac S <=4 F Susceptible <16 , Susceptible-Dose Dependent >=16 , Resistant >=32 Gentamicin S <=1 F Susceptible <=2 , Intermediate >2 , Resistant >=8 Tobramycin S <=1 F Susceptible <4 , Intermediate >=4 , Resistant >=8 Trimeth sulfameth S <=20 F Susceptible <=40 , Resistant >40 Ciprofloxacin S <=0.25 F Susceptible <0.5 , Intermediate >=.5 , Resistant >=1 Nitrofurantoin S <=16 F Susceptible <=32 , Intermediate >32 , Resistant >64 Abnormal [facility] Comment on above: Performed By: #### 6 30-4 #### [facility] CLIA [id number] [address] [place] [address] [place] CNOVon 10-07-2024 CNOV Office Visit (UCWSTR ) FRANCIA BERMUDEZ ([id number]) 1970 F Date Time Provider Department 10/07/24 6:00 PM RODRI SYED UCTR During your visit today, we recorded the following information about you: Temperature Pulse Respiration Blood pressure 97.8 degrees 74/minute 18/minute 128/82 Weight 63.4 kg Rodri Syed APRN.CNP 10/07/2024 6:35 PM Signed [facility] Subjective Francia Bermudez is a 54 year old female. Patient presents with: Urinary Frequency: Frequency, urgency, odor and cloudy urine x 3 days Presents for 3 day history of urinary urgency, burning and frequency x 3 days. The history is provided by the patient. Review of Systems Genitourinary: Positive for difficulty urinating, dysuria, frequency and urgency. Objective BP 128/82 Pulse 74 Temp 36.6 ?C (97.8 ?F) (Tympanic) Resp 18 Wt 63.4 kg (139 lb 12.4 oz) LMP 11/05/2017 BMI 24.46 kg/m? Physical Exam Abdominal: General: Abdomen is flat. Bowel sounds are normal. Palpations: Abdomen is soft. Tenderness: There is no abdominal tenderness. Neurological: Mental Status: She is alert. {ASSESSMENT/PLAN: 1. Urinary frequency - ICD9: 788.41, ICD10: R35.0 acute - UA positive for lissa esterase and nitrates - Send urine for culture - Begin treatment with Macrobid 100 mg BID for 5 days - Patient education for prevention given - UA DIP, URINE (POC) - BACTERIAL CULTURE, URINE Rodri Syed APRN.CNP History and Record Review Clinical information obtained from an independent historian. History obtained from or confirmed by: friend. Differential Diagnoses - UTI is more likely for the following reason(s): suggested by HANDP and consistent with laboratory studies Disposition The patient was discharged. Procedures Allergies As of Date: 10/07/2024 Noted Allergy Reaction PHENERGAN (PROMETHAZINE) 04/24/2011 1 - Mental Status Change Date Reviewed: 10/07/2024 Reviewed by: Christine Tierney LPN - Fully Assessed Reason for Visit: Urinary Frequency [1086] Cmt: Frequency, urgency, odor and cloudy urine x 3 days Primary Visit Diagnosis:Urinary frequency [R35.0] Other Visit Diagnosis:Urinary tract infection without hematuria, site unspecified [N39.0] Order(s):UA DIP, URINE (POC) [5886295] Order #: [id number]. #:[id number] BACTERIAL CULTURE, URINE [SQURCUL] Order #: [id number]. #:[id number] nitrofurantoin monohydrate and macrocrystal (MACROBID) 100 mg capsuleTake 1 capsule by mouth two times a day for 5 days.Disp: 10 capsuleRfl: 0 Prescriptions as of 10/07/2024 - nitrofurantoin monohydrate and macrocrystal (MACROBID) 100 mg capsule Take 1 capsule by mouth two times a day for 5 days. - tamoxifen (NOLVADEX) 20 mg tablet Take 1 tablet (20 mg) by mouth once daily. - calcium citrate/vitamin D3 (CITRACAL + D ORAL) Take by mouth once daily. - phentermine HCl (PHENTERMINE ORAL) Take 0.5 tablets by mouth once daily. Problem List As Of Date 10/07/2024 Noted Resolved S/P bilateral breast implants [Z98.82] 03/17/2009 Hyperlipidemia [E78.5] 03/24/2009 Allergic rhinitis [J30.9] 02/11/2010 Routine general medical examination at [facility]*01/10/2011 03/25/2012 Class: Chronic Encounter for screening mammogram for breast ca*01/10/2011 Class: Chronic Recurrent UTI [N39.0] 03/06/2011 PMDD (premenstrual dysphoric disorder) [F32.81] 07/15/2014 Malignant neoplasm of upper-inner quadrant of r*09/29/2017 Malignant neoplasm of right breast in female, e*10/23/2017 S/P breast reconstruction [Z98.890] 11/16/2017 Breast asymmetry between point [place] ira breast and elia*11/29/2017 History of right breast cancer [Z85.3] 04/09/2018 Lymphedema [I89.0] 01/20/2019 Vaginal dryness [N89.8] 06/01/2020 Arthralgia of multiple sites [M25.50] 06/01/2020 Aromatase inhibitor use [Z79.811] 06/01/2020 Insomnia [G47.00] 06/01/2020 Prescriptions ordered this encounter Disp Refills Start End NITROFURANTOIN MONOHYDRATE AND MACROCR* 10 c* 0 10/07/2024 10/12/2024 Route: ORAL Sig: Take 1 capsule by mouth two times a day for 5 days. Disposition: Return if symptoms worsen or fail to improve. Follow-up and Disposition History for Encounter Date Provider Department Center 10/07/2024 [id number] SYED [facility] Encounter Status:Closed by RODRI SYED on 10/07/24 Normal [facility] UA DIP, URINE (POC)on 2024 BILIRUBIN UA (POCT) Negative Negative [facility] CLARITY UA (POCT) Cloudy [facility] COLOR UA (POCT) Dark yellow [facility] GLUCOSE UA (POCT) Negative Negative mg/dL [facility] Hemoglobin Ql (U) Trace-intact Abnormal Negative [facility] Interpretation and review of laboratory results Abnormal [facility] KETONE UA (POCT) Negative Negative mg/dL [facility] LEUKOCYTES UA (POCT) Small Abnormal Negative [facility] NITRITE UA (POCT) Positive Abnormal Negative [facility] PH UA (POCT) 6.5 4.5 - 8.0 [facility] Protein Ql (U) Negative Negative mg/dL [facility] SPECIFIC GRAVITY UA (POCT) 1.015 1.005 - 1.030 [facility] UROBILINOGEN UA (POCT) 0.2 Normal E.U./dL [facility] Location:[address], [place], [place], [id number] [place] [address] POINT OF CARE [facility] Research Program Intern Office Visit Reporton 08-21-2024 Research Program Intern Office Visit Report [facility] [address], [address] [place] [address] OFFICE VISIT Date of Service: 08/21/24 MR#: [id number] Acct: [id number] Name: FRANCIA BERMUDEZ Rep #: [id number] : 1970 Provider: NIKA Grey Age/Sex: 54/F [place] [facility] [place]: Signed Intake Vital Signs 05/29/24 10:40 08/21/24 15:31 Height 5 ft 3 in 5 ft 3 in Weight: 139 lb 138 lb BMI 24.6 24.4 BP 127/83 H 117/82 H Pulse 80 77 Intake Visit Reasons: 3 M FU Agricultural Lender Required: No Is patient in pain?: No Allergies promethazine (From Phenergan) Adverse Reaction (Unknown, Verified 08/21/24 15:31) Pt could not remember Medications ???Medication ???Instructions ???Recorded ???Confirmed ???Type calcium ER 600 mg (as carb,cit)-D3 tab PO 11/02/23 08/21/24 History 12.5 mcg (500 unit) tablet, ext.rel (Citracal-D3 Slow Release) phentermine 37.5 mg tablet 18.75 mg (1/2 x 37.5 mg) PO QDAY 0 08/21/24 08/21/24 Rx (Adipex-P) #16 tabs Last Menstrual Period: 08/06/17 : No Have you fallen in the past year?: No PFSH PFSH Medical History Genetic defect Breast cancer, right Surgical History Hx of right mastectomy H/O bilateral oophorectomy H/O breast augmentation Tubal ligation status S/P dilation and curettage uterine ablation Family History Grandfather Lung cancer Social History Smoking Status: Never smoker alcohol intake: current details: occasionally substance use type: does not use caffeine: Yes what type of physical activity do you participate in: none seatbelt use: always do you feel safe at home: Yes 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 Date Name GA/Weeks Outcome Route Bth Weight Infant Gen Labor Lgth Anesthesia Del Locatn Provider FOB Unknown Ernesto-27 Unknown Darci-14 HPI 3 M FU Details: FRANCIA BERMUDEZ is a 54 year old Female presenting for a weight management follow up; she is doing well; continuing to follow nutrition plan, exercise (limited due to winter months) but also modify her behaviors. She reports she is taking medications compliantly; no side effects noted. Would like to continue on this. Female Reproductive History Last Menstrual Period: 08/06/17 ROS Const Reports as per HPI, Denies difficulty sleeping, Denies excessive sweating, Denies fatigue (new onset severe) and Denies fever(s) Eyes Denies change in vision and Denies diplopia ENT Denies dizziness Card Denies chest pain, Denies dyspnea, Denies dyspnea on exertion, Denies palpitations and Denies rapid heart rate Resp Denies dyspnea and Denies dyspnea on exertion GI Reports as per HPI, Denies abdominal pain and Denies constipation Musc Denies numbness Neuro No confusion, No dizziness, No memory loss and No numbness Psych Denies confusion, Denies depression, Denies memory loss, Denies mood swings and Denies suicidal ideation Endo Denies excessive sweating, Denies fatigue (new onset severe), Denies palpitations and Reports other (denies symptoms of hypoglycemia) Exam Const General: cooperative, healthy appearing, comfortable and no acute distress Orientation: alert HENMT Head: normal to inspection and normocephalic Eyes General: appearance normal, both eyes and all related structures Neck Neck: normal visual inspection, no lymphadenopathy and trachea midline Thyroid: thyroid normal Resp Effort Inspection: normal respiratory effort Auscultation: clear to auscultation bilaterally Cardio Rate: regular rate Rhythm: regular rhythm Heart Sounds: S1 normal and S2 normal Musc Other: gross motor intact no deficits, full bilateral strength Skin General: no rashes or lesions noted Neuro Motor: muscle tone normal throughout Extrem General: no pedal edema Assessment and Plan Assessment and Plan (1) High cholesterol: Status: Acute Comment: dietary changes and weight reduction recommended. (2) Sleep apnea: Status: Acute Comment: didn't tolerate cpap. pulm referral for alternate treatment. s/p 15% weight reduction (3) Other obesity: Status: Acute Comment: Nutrition plan: Balanced calorie restricted nutritional plan my fitness pal. discussed bore mill operator for plastic consult - not covered. Medication plan: 1/2 tab phentermine. discussed topamax if needed; not now. contro (more content not included)... Normal [facility] Research Program Intern Office Visit Reporton 05-29-2024 Research Program Intern Office Visit Report [facility] [address], [address] [place] [address] OFFICE VISIT Date of Service: 05/29/24 MR#: [id number] Acct: [id number] Name: FRANCIA BERMUDEZ Rep #: [id number] : 1970 Provider: Dr. Alexia ratliff MD Age/Sex: 53/F [place] [facility] [place]: Signed Intake Vital Signs 12/11/23 11:20 02/22/24 09:13 05/29/24 10:40 Height 5 ft 3 in 5 ft 3 in 5 ft 3 in Weight: 136 lb 139 lb BMI 24.0 24.6 BP 133/81 H 127/83 H Pulse 77 80 Pulse Source Monitor Intake Visit Reasons: 3 M FU Agricultural Lender Required: No Is patient in pain?: No Feel stressed/tense/nervous /anxious/difficulty sleeping: not at all Allergies promethazine (From Phenergan) Adverse Reaction (Unknown, Verified 05/29/24 10:42) Pt could not remember Medications ???Medication ???Instructions ???Recorded ???Confirmed ???Type calcium ER 600 mg (as carb,cit)-D3 tab PO 11/02/23 05/29/24 History 12.5 mcg (500 unit) tablet, ext.rel (Citracal-D3 Slow Release) phentermine 37.5 mg tablet 18.75 mg (1/2 x 37.5 mg) PO QDAY 05/29/24 05/29/24 Rx (Adipex-P) #16 tabs Last Menstrual Period: 08/06/17 Zika: Zika virus screening: Negative : No Have you fallen in the past year?: No PFSH PFSH Medical History Genetic defect Breast cancer, right Surgical History Hx of right mastectomy H/O bilateral oophorectomy H/O breast augmentation Tubal ligation status S/P dilation and curettage uterine ablation Family History Grandfather Lung cancer Social History Smoking Status: Never smoker alcohol intake: current details: occasionally substance use type: does not use caffeine: Yes what type of physical activity do you participate in: none seatbelt use: always do you feel safe at home: Yes 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 Date Name GA/Weeks Outcome Route Bth Weight Infant Gen Labor Lgth Anesthesia Del Locatn Provider FOB Unknown Ernesto-27 Unknown Darci-14 HPI 3 M FU Details: FRANCIA BERMUDEZ is a 53 year old Female presenting for a weight management follow up. she is maintaining weight well. she is walking during summer and spring but not in the winter. she feels like she is managing hunger and cravings for the most part, could use improvement in exercise, doesn't do strength training. she is eating the same things. see weight management questionnaire answers for additional HPI details. all information was reviewed with the patient and confirmed, relevant counseling provided, and any changes to treatment plan m digna. Female Reproductive History Last Menstrual Period: 08/06/17 ROS Const Reports as per HPI, Denies difficulty sleeping, Denies excessive sweating, Denies fatigue (new onset severe) and Denies fever(s) Eyes Denies change in vision and Denies diplopia ENT Denies dizziness Card Denies chest pain, Denies dyspnea, Denies dyspnea on exertion, Denies palpitations and Denies rapid heart rate Resp Denies dyspnea and Denies dyspnea on exertion GI Reports as per HPI, Denies abdominal pain and Denies constipation Musc Denies numbness Neuro No confusion, No dizziness, No memory loss and No numbness Psych Denies confusion, Denies depression, Denies memory loss, Denies mood swings and Denies suicidal ideation Endo Denies excessive sweating, Denies fatigue (new onset severe), Denies palpitations and Reports other (denies symptoms of hypoglycemia) Exam Const General: cooperative, healthy appearing, comfortable and no acute distress Orientation: alert HENMT Head: normal to inspection and normocephalic Eyes General: appearance normal, both eyes and all related structures Neck Neck: normal visual inspection, no lymphadenopathy and trachea midline Thyroid: thyroid normal Resp Effort Inspection: normal respiratory effort Auscultation: clear to auscultation bilaterally Cardio Rate: regular rate Rhythm: regular rhythm Heart Sounds: S1 normal and S2 normal Musc Other: gross motor intact no deficits, full bilateral strength Skin General: no rashes or lesions noted Neuro Motor: muscle tone normal throughout Extrem General: no pedal edema Assessment and Plan Assessment and Plan (1) High cholesterol: Status: Acute Comment: dietary changes and weight reduction recommend (more content not included)... Normal [facility] BD DXA - AXIAL SKELETONon BD DXA - AXIAL SKELETON * * *Final Report* * * DATE OF EXAM: Apr 04 2024 10:15AM [facility] 0804 - BD DXA - AXIAL SKELETON / PROCEDURE REASON: Aromatase inhibitor use * * * * Physician Interpretation * * * * EXAMINATION: DXA BONE DENSITOMETRY BD DXA - AXIAL SKELETON PATIENT DEMOGRAPHICS: Age: 53 years, Gender: Female SCANNER INFORMATION: DXA Model: A2Char Software (S/N: [id number]) Date Scanned: 04/04/2024 10:15 AM CLINICAL HISTORY: DIAGNOSTIC Aromatase inhibitor use . RISK FACTORS FOR OSTEOPOROSIS AND ASSOCIATED FRACTURES REPORTED BY THIS PATIENT: Please refer to Bone Health Questionnaire in the EMR CURRENT THERAPY: Please refer to Bone Health Questionnaire in the EMR TECHNICAL LIMITATIONS: Degenerative disease of the spine RESULTS: Lumbar Spine (L1, L2, L3, L4): Total BMD: 0.993 g/cm2, T-score: -1.6, Z-score: -0.7 Lumbar spine: 2021: 1.008 g/cm2 No statistically significant change Left Femoral Neck: 0.965 g/cm2, T-score -0.5, Z-score 0.5 Left Femoral Neck: 2021: 0.972 g/cm2 No statistically significant change Left Total Hip: 1.011 g/cm2, T-score 0.0 , Z-score 0.7 Left Total Hip: 2021: 1.0.39 g/cm2 No statistically significant change CHANGE IS STATISTICALLY SIGNIFICANT IN THE SPINE OR HIP IF GREATER THAN OR EQUAL TO 0.04 g/cm2 VERTEBRAL FRACTURE ASSESSMENT Not performed. TRABECULAR BONE ASSESSMENT TBS not performed: not ordered IMPRESSION: THE LOWEST T-SCORE IS -1.6 IN THE SPINE 1) DIAGNOSIS (based on BMD alone): OSTEOPENIA - Caution: Medical conditions other than osteoporosis may cause low bone density, such as osteomalacia or renal osteodystrophy. Clinical correlation is necessary. 2) FRACTURE RISK (based on BMD alone) INCREASED - Caution: Fracture risk may be increased independent of BMD in patients with corticosteroid use, age greater than 65 years, or a history of prior fragility fracture. - FRAX was not calculated: SERM currently or within the last year RECOMMENDATIONS: Follow-up in 2 years or as clinically indicated. Patients that are taking corticosteroids, are transplant recipients or have hyperparathyroidism should have annual follow-up. Follow-up scans should always be done on the same machine for accurate comparison. FOR MORE INFORMATION ABOUT DIAGNOSIS AND TREATMENT: [facility] for Osteoporosis and Metabolic Bone Disease:? www.ccf.org/arthritis/ osteo National Osteoporosis Foundation:? www.nof.org International Society of Clinical Densitometry www.iscd.org Wall Taper: 06653 Transcribe Date/Time: Apr 04 2024 10:24A Dictated by : SENTHIL POST MD This examination was interpreted and the report reviewed and electronically signed by: SENTHIL POST MD on Apr 04 2024 10:36AM EST [id number] -1.6 Normal [facility] CNOVSPon 04-04-2024 CNOVSP Visit (SP) Office ([facility]) FRANCIA BERMUDEZ ([id number]) 1970 F Date Time Provider Department 04/04/24 11:00 AM [facility] During your visit today, we recorded the following information about you: Temperature Pulse Respiration Blood pressure 98 degrees 83/minute 16/minute 138/51 Weight Height 62.8 kg 1.61 m Lena Fleming APRN.CNP 04/05/2024 8:52 AM Signed Some elements of all sections of this documentation were copied from my previous note of March 30, 2023 and have been re-examined and updated where appropriate. All elements reflect the current assessment and medical decision making of today, April 04, 2024. ATTENDING PHYSICIAN: Dr. Huma Good IDENTIFICATION: Francia Bermudez is a 53 year old year old woman with T3N0, ER positive, CT positive, Qjw9hzd negative (oncotype dx recurrence score of 14), LOBULAR right breast cancer diagnosed in September 2017. She has a known pathogenic RAD51C mutation. REASON FOR VISIT / CHIEF COMPLAINT: Routine 6 month follow up in coordination with her annual breast mammogram for cancer care (alternating with MRI breast) SURVIVORSHIP VISIT: January 08, 2018 CURRENT SYSTEMIC THERAPY FOR BREAST CANCER: Tamoxifen 20 mg daily PAST THERAPY FOR BREAST CANCER: Right mastectomy with sentinel node procedure and implant reconstruction (Dr. Lobo / Dr. Villela; 5.6 cm, 0/3 nodes positive) Lupron (initiated in December 2017 with subsequent BSO) Exemestane (December 2017 - June 2021) Zoledronic acid (January 2018 - December 02, 2020; received 6 cycles) Letrozole 2.5 mg daily (July 2021 - March 2022) Tamoxifen 20 mg daily (March 2022 - present) INTERVAL HISTORY: Pt presents today with her . She reports that she is taking her Tamoxifen 20 mg daily as prescribed with minimal difficulty, and confirms annual pelvic exams are being done. Pt does note that her libido and sexual function have been compromised and feels that it is interfering with her relationship with her . Discussed potential etiology of the same being the anti-endocrine therapy but also menopause and discussed a referral to sexual health, which she is open to. No concerns noted, although questions regarding tamoxifen therapy and extension to 10 years did arise. Pt verbalized that she is comfortable with the 10 years if indicated, but also open to discontinuing earlier if not warranted. Discussed availability of BCI testing and felt to be appropriate by Dr. Good as well and will submit the same at this time. She otherwise reports that she physically feels well and is without any new concerns or discomforts that would be suggestive of recurrent or metastatic disease. She specifically denies any concerning nausea, vomiting, cough, shortness of breath, localized bone pain, headaches or diplopia. She reports that she is doing regular breast exams and denies any concerns related to the same. She also confirms that she does have a primary care provider (Zeny Ricardo MD), which she verifies she is following up with regularly for her routine health maintenance. REVIEW OF SYSTEMS: The remainder of the review of systems is unremarkable. 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 Yes, testing was significant for a pathogenic mutation in RAD51C PHYSICAL EXAMINATION: Physical exam listed below was completed in it's entirety today, April 04, 2024 and is unchanged from March 30, 2023 except where noted in italics. The sensitive examination was discussed with the Patient or Patient's Authorized Miter Operator. As applicable, any other physician, advance practice provider, medical student, or other health professional student that will be observing or involved in the sensitive examination for educational or training purposes was discussed with the Patient or Authorized Miter Operator. The Patient or Authorized Miter Operator has agreed to proceed with the sensitive examination. Pt was offered a truck service manager, but verbalized that she was comfortable with proceeding with exam without one. General appearance: well appearing, alert, in no acute distress Skin: Skin color, texture, turgor normal, no rashes or lesions Head: unremarkable Neck: Supple, no adenopathy Lungs: lungs clear to auscultation, no wheezing or rhonchi Heart: Negative, RRR Breasts: Right breast exam reveals i (more content not included)... Normal [facility] FRANCIA BERMUDEZ ([id number]) 1970 F Date Time Provider Department 04/04/24 BREANNA MARMOLEJO [id number] During your visit today, we recorded the following information about you: Breanna Marmolejo RN 04/04/2024 4:29 PM Signed Breast Cancer Index ordered via [employer] portal as requested by Dr Huma Good. Order, pathology report and insurance information faxed to [employer]. Breanna Marmolejo RN Allergies As of Date: 04/04/2024 Noted Allergy Reaction PHENERGAN (PROMETHAZINE) 04/24/2011 1 - Mental Status Change Date Reviewed: 04/04/2024 Reviewed by: Ina Garcia LPN - Fully Assessed Reason for Visit: Care Coordination [3491] Cmt: BCI testing Prescriptions as of 04/04/2024 - iv contrast (will be provided with radiology test) MRI Breast DANK Inject, intravenously, once for 1 dose. No IV access, insert saline lock prior to the beginning of sedation, infusion, injection of imaging exam. Discontinue saline lock post exam. If Pt has a central line or IVAD, may access for administration according to line specific nursing protocol. Once exam is complete flush line and de-access according to line specific nursing protocol in the MR contrast administration guidelines link - calcium citrate/vitamin D3 (CITRACAL + D ORAL) Take by mouth once daily. - tamoxifen (NOLVADEX) 20 mg tablet Take 1 tablet (20 mg) by mouth once daily. - phentermine HCl (PHENTERMINE ORAL) Take 0.5 tablets by mouth once daily. Problem List As Of Date 04/04/2024 Noted Resolved S/P bilateral breast implants [Z98.82] 03/17/2009 Hyperlipidemia [E78.5] 03/24/2009 Allergic rhinitis [J30.9] 02/11/2010 Routine general medical examination at [facility]*01/10/2011 03/25/2012 Class: Chronic Encounter for screening mammogram for breast ca*01/10/2011 Class: Chronic Recurrent UTI [N39.0] 03/06/2011 PMDD (premenstrual dysphoric disorder) [F32.81] 07/15/2014 Malignant neoplasm of upper-inner quadrant of r*09/29/2017 Malignant neoplasm of right breast in female, e*10/23/2017 S/P breast reconstruction [Z98.890] 11/16/2017 Breast asymmetry between point lay ira breast and elia*11/29/2017 History of right breast cancer [Z85.3] 04/09/2018 Lymphedema [I89.0] 01/20/2019 Vaginal dryness [N89.8] 06/01/2020 Arthralgia of multiple sites [M25.50] 06/01/2020 Aromatase inhibitor use [Z79.811] 06/01/2020 Insomnia [G47.00] 06/01/2020 Encounter Status:Closed by BREANNA MARMOLEJO on 04/04/24 Normal [facility] DXA Skeletal system.axial Vi ews for bone densityOrdered By: [facility] Provider on 04-04-2024 LOWEST T-SCORE -1.6 [facility] DXA Skeletal system.axial Vi ews for bone densityon 04-04-2024 IMPRESSION: THE LOWEST T-SCORE IS -1.6 IN THE SPINE 1) DIAGNOSIS (based on BMD alone): OSTEOPENIA - Caution: Medical conditions other than osteoporosis may cause low bone density, such as osteomalacia or renal osteodystrophy. Clinical correlation is necessary. 2) FRACTURE RISK (based on BMD alone) INCREASED - Caution: Fracture risk may be increased independent of BMD in patients with corticosteroid use, age greater than 65 years, or a history of prior fragility fracture. - FRAX was not calculated: SERM currently or within the last year RECOMMENDATIONS: Follow-up in 2 years or as clinically indicated. Patients that are taking corticosteroids, are transplant recipients or have hyperparathyroidism should have annual follow-up. Follow-up scans should always be done on the same machine for accurate comparison. FOR MORE INFORMATION ABOUT DIAGNOSIS AND TREATMENT: [facility] Osteoporosis and Metabolic Bone Disease:? www.ccf.org/arthritis/ osteo National Osteoporosis Foundation:? www.nof.org International Society of Clinical Densitometry www.iscd.org Wall Taper: 13807 Transcribe Date/Time: Apr 04 2024 10:24A Dictated by : SENTHIL POST MD This examination was interpreted and the report reviewed and electronically signed by: SENTHIL POST MD on Apr 04 2024 10:36AM [facility] DIVISION OF RADIOLOGY * * *Final Report* * * DATE OF EXAM: Apr 04 2024 10:15AM [facility] 0804 - BD DXA - AXIAL SKELETON / PROCEDURE REASON: Aromatase inhibitor use * * * * Physician Interpretation * * * * EXAMINATION: DXA BONE DENSITOMETRY BD DXA - AXIAL SKELETON PATIENT DEMOGRAPHICS: Age: 53 years, Gender: Female SCANNER INFORMATION: DXA Model: A21 Lunar iDXA (S/N: [id number]) Date Scanned: 04/04/2024 10:15 AM CLINICAL HISTORY: DIAGNOSTIC Aromatase inhibitor use . RISK FACTORS FOR OSTEOPOROSIS AND ASSOCIATED FRACTURES REPORTED BY THIS PATIENT: Please refer to Bone Health Questionnaire in the EMR CURRENT THERAPY: Please refer to Bone Health Questionnaire in the EMR TECHNICAL LIMITATIONS: Degenerative disease of the spine RESULTS: Lumbar Spine (L1, L2, L3, L4): Total BMD: 0.993 g/cm2, T-score: -1.6, Z-score: -0.7 Lumbar spine: 2021: 1.008 g/cm2 No statistically significant change Left Femoral Neck: 0.965 g/cm2, T-score -0.5, Z-score 0.5 Left Femoral Neck: 2021: 0.972 g/cm2 No statistically significant change Left Total Hip: 1.011 g/cm2, T-score 0.0 , Z-score 0.7 Left Total Hip: 2021: 1.0.39 g/cm2 No statistically significant change CHANGE IS STATISTICALLY SIGNIFICANT IN THE SPINE OR HIP IF GREATER THAN OR EQUAL TO 0.04 g/cm2 VERTEBRAL FRACTURE ASSESSMENT Not performed. TRABECULAR BONE ASSESSMENT TBS not performed: not ordered DIVISION OF RADIOLOGY Provider, [facility] - 04/04/2024 * * *Final Report* * * DATE OF EXAM: Apr 04 2024 10:15AM [facility] 0804 - BD DXA - AXIAL SKELETON / PROCEDURE REASON: Aromatase inhibitor use * * * * Physician Interpretation * * * * EXAMINATION: DXA BONE DENSITOMETRY BD DXA - AXIAL SKELETON PATIENT DEMOGRAPHICS: Age: 53 years, Gender: Female SCANNER INFORMATION: DXA Model: A21 Lunar iDXA (S/N: [id number]) Date Scanned: 04/04/2024 10:15 AM CLINICAL HISTORY: DIAGNOSTIC Aromatase inhibitor use . RISK FACTORS FOR OSTEOPOROSIS AND ASSOCIATED FRACTURES REPORTED BY THIS PATIENT: Please refer to Bone Health Questionnaire in the EMR CURRENT THERAPY: Please refer to Bone Health Questionnaire in the EMR TECHNICAL LIMITATIONS: Degenerative disease of the spine RESULTS: Lumbar Spine (L1, L2, L3, L4): Total BMD: 0.993 g/cm2, T-score: -1.6, Z-score: -0.7 Lumbar spine: 2021: 1.008 g/cm2 No statistically significant change Left Femoral Neck: 0.965 g/cm2, T-score -0.5, Z-score 0.5 Left Femoral Neck: 2021: 0.972 g/cm2 No statistically significant change Left Total Hip: 1.011 g/cm2, T-score 0.0 , Z-score 0.7 Left Total Hip: 2021: 1.0.39 g/cm2 No statistically significant change CHANGE IS STATISTICALLY SIGNIFICANT IN THE SPINE OR HIP IF GREATER THAN OR EQUAL TO 0.04 g/cm2 VERTEBRAL FRACTURE ASSESSMENT Not performed. TRABECULAR BONE ASSESSMENT TBS not performed: not ordered IMPRESSION IMPRESSION: THE LOWEST T-SCORE IS -1.6 IN THE SPINE 1) DIAGNOSIS (based on BMD alone): OSTEOPENIA - Caution: Medical conditions other than osteoporosis may cause low bone density, such as osteomalacia or renal osteodystrophy. Clinical correlation is necessary. 2) FRACTURE RISK (based on BMD alone) INCREASED - Caution: Fracture risk may be increased independent of BMD in patients with corticosteroid use, age greater than 65 years, or a history of prior fragility fracture. - FRAX was not calculated: SERM currently or within the last year RECOMMENDATIONS: Follow-up in 2 years or as clinically indicated. Patients that are taking corticosteroids, are transplant recipients or have hyperparathyroidism should have annual follow-up. Follow-up scans should always be done on the same machine for accurate comparison. FOR MORE INFORMATION ABOUT DIAGNOSIS AND TREATMENT: [facility] Osteoporosis and Metabolic Bone Disease:? www.ccf.org/arthritis/ osteo National Osteoporosis Foundation:? www.nof.org International Society of Clinical Densitometry www.iscd.org Wall Taper: 04721 Transcribe Date/Time: Apr 04 2024 10:24A Dictated by : SENTHIL POST MD This examination was interpreted and the report reviewed and electronically signed by: SENTHIL POST MD on Apr 04 2024 10:36AM EST [facility] Radiology Study observation (narrative) [facility] DALE SCREENING W TOMOon 04-04 DALE SCREENING W ADRIAN * * *Final Report* * * DATE OF EXAM: Apr 04 2024 9:35AM [facility] 0582 - DALE SCREENING W ADRIAN / PROCEDURE REASON: Encounter for screening mammogram for high-risk patient * * * * Physician Interpretation * * * * RESULT: [facility] [address] [facility] [address] [place] [address] HISTORY: Patient is 53 years old and is seen for screening. No current complaints. The patient has a history of right breast cancer in 2018. COMPARISON STUDIES: The present examination has been compared to prior imaging studies dated 12/02/2020 (mammogram), 03/17/2022 (mammogram) and 03/30/2023 (mammogram). MAMMOGRAM TECHNIQUE: The study was acquired using full field digital technology and interpreted from soft copy. Digital Breast Tomosynthesis (DBT) images were obtained and used to assist in the interpretation of this examination. Computer-aided detection was utilized by the radiologist in the interpretation of this examination. MAMMOGRAM FINDINGS: The breast is heterogeneously dense, which may obscure small masses. There is a in the left breast. No suspicious masses, calcifications or other abnormalities are seen in the left breast. There are no significant changes from the prior study. The implant appears smooth in contour with no evidence of rupture or leak. IMPRESSION: There is no mammographic evidence of malignancy in the left breast. Routine screening mammogram is recommended. Annual mammogram will be due in 1 year. BI-RADS Category 1: Negative Interpreting Radiologist: Abner Kennedy M.D. Electronically signed on: 04/07/2024 Wall Taper: [email or web address] Transcribe Date/Time: Apr 04 2024 9:03A Dictated by : ABNER KENNEDY MD This examination was interpreted and the report reviewed and electronically signed by: ABNER KENNEDY MD on Apr 07 2024 10:45PM EST [id number] Normal [facility] Glucoseon 02-22-2024 Glucose [Mass/Vol] 95 mg/dL Normal 74-106 [facility] Comment on above: Performed By: #### L 500.4100, L501.0100, L501.9520, L501.9985, L506.1000 #### [facility] [address] [place], [address] Hemoglobin A1con 02-22-2024 HbA1c (Bld) [Mass fraction] 5.3 % Normal 3.8-5.6 [facility] Comment on above: Result Comment: Norm al < 5.7 % Prediabetic 5.7 - 6.4 % Diabetic >or= 6.5 % Please note range changes. Performed By: #### L 500.4100, L501.0100, L501.9520, L501.9985, L506.1000 #### [facility] [address] [place], [address] Lipid Profileon 02-22-2024 Cholesterol [Mass/Vol] 206 mg/dL High 200 [facility] Comment on above: Result Comment: <200 mg/dL Desirable 200-240 mg/dL Borderline >240 mg/dL High Risk Performed By: #### L 500.4100, L501.0100, L501.9520, L501.9985, L506.1000 #### [facility] [address] [place], [address] Cholesterol in HDL [Mass/Vol] 74 mg/dL Normal [facility] Comment on above: Result Comment: The drugs N-Acetylcysteine and Metamizole may falsely depress this assay. Reference Range HDL <40 mg/dL Low HDL Cholesterol HDL >or= 60 mg/dL High HDL Cholesterol Performed By: #### L 500.4100, L501.0100, L501.9520, L501.9985, L506.1000 #### [facility] [address] [place], [address] Cholesterol in LDL [Mass/Vol] 113 mg/dL Normal 0-130 [facility] Comment on above: Performed By: #### L 500.4100, L501.0100, L501.9520, L501.9985, L506.1000 #### [facility] [address] [place], [address] Cholesterol in VLDL [Mass/Vol] 19 mg/dL Normal 5-40 [facility] Comment on above: Performed By: #### L 500.4100, L501.0100, L501.9520, L501.9985, L506.1000 #### [facility] [address] [place], [address] Triglyceride [Mass/Vol] 93 mg/dL Normal [facility] Comment on above: Result Comment: The drugs N-Acetylcysteine and Metamizole may falsely depress this assay. Serum Triglycerides Reference Interval Normal <150 mg/dL Borderline high 150 - 199 mg/dL High 200 - 499 mg/dL Very High > or = 500 mg/dL Performed By: #### L 500.4100, L501.0100, L501.9520, L501.9985, L506.1000 #### [facility] [address] [place], [address] Office Visit Reporton 2023 Office Visit Report [facility] [address] [facility] [place] [address] OFFICE VISIT Date of Service: 02/22/24 MR#: [id number] Acct: [id number] Patient: FRANCIA BERMUDEZ Rep #: [id number] : 1970 Provider: Dr. Alexia ratliff MD Age/Sex: 53/F [place] [facility] [place]: Signed Intake Vital Signs 12/11/23 11:20 01/17/24 15:12 02/22/24 09:13 Height 5 ft 3 in 5 ft 3 in 5 ft 3 in Weight: 139 lb 136 lb BMI 24.6 24.0 BP 131/76 H 133/81 H Pulse 92 77 Pulse Source Monitor Intake Visit Reasons: 1 M FU Chief Complaint: Weight and BP check for weight management Agricultural Lender Required: No Is patient in pain?: No Allergies promethazine (From Phenergan) Adverse Reaction (Unknown, Verified 02/22/24 09:13) Pt could not remember Medications ???Medication ???Instructions ???Recorded ???Confirmed ???Type tamoxifen 20 mg tablet 20 mg PO DAILY 08/03/22 02/22/24 History calcium carb,cit ER 600 mg-vit D3 tab PO 11/02/23 02/22/24 History 12.5 mcg (500 unit) tablet,ext.rel (Citracal-D3 Slow Release) phentermine 37.5 mg tablet 18.75 mg (1/2 x 37.5 mg) PO QDAY 02/25/24 02/25/24 Rx (Adipex-P) #16 tabs Post menopausal: No Patient : No Have you fallen in the past year?: No Nurse's Note: Patient was here today for blood pressure/weight check. She did decrease 3 pounds in the last month. She initially was thinking she needed to increase medication because previous months her weight was increasing, however, today she is down weight so she will continue with 1/2 tablet of Adipex daily. Please send new prescription to [facility] in [place]. patient seen for obesity related comorbidities/weight management medication follow up. WM questionnaire answers reviewed with patient, and any questions answered. support given to patient consistent with treatment plan. vitals taken and script renewed by provider if appropriate. all relevant findings reviewed with the provider, script renewed if appropriate, and any changes to current treatment as well as the follow up plan reviewed with patient. Questionnaires Weight Management Follow-Up What nutritional plan/diet are you following?: Intermittent fasting/balanced How are you tracking your food intake?: My fitness pal On average, how many days a week are you recording your food intake?: 0 How many days a week are you staying within your recommended intake goals?: 5 What is your current weekly exercise?: 3 mile hikes 2-3 x week On a scale of 1-10, how difficult is it to follow your current weight management plan?: 0 What are you struggling most with right now in following your weight loss plan?: Food cravings/time to exercise Are there any changes we need to make to your current plan right now?: Maybe add another med or change up to KDSstart weightloss again Side Effects: No Chest Pain, No Palpitations, No Increased Heart Rate, No Irregular Heart Rhythm, No Increased Blood Pressure, No Change in breathing patterns, No Kidney Stones, No Change in vision, No Insomnia, No Difficulty with memory/speech, No Numbness in hands/feet, No New onset severe fatigue, No Nausea/vomiting, No Constipation and No Depressed mood Are there any side effects interfering with quality of life enough you would want to stop medication?: No What's improved for you since losing weight and making your lifestyle change?: Sleep apnea, joint pain, energy, body image Is there anything else we can help you with on your weight loss journey today?: No 02/25/24 0754 Date Alexia Ragland Signature: Date (if applicable) CC: Normal [facility] Thyroid Stim Hormone (TSH)on 02-22-2024 TSH 1.980 uIU/mL Normal 0.358-3.740 [facility] Comment on above: Performed By: #### L 500.4100, L501.0100, L501.9520, L501.9985, L506.1000 #### [facility] [address], [address] Vitamin D,25 Hydroxyon 02-21 Vitamin D 25-OH 25.1 ng/mL Normal [facility] Comment on above: Result Comment: Margaret min D 25(OH) Status Range Deficiency <20 ng/mL (50nmol/L) Insufficiency 20 - 30 ng/mL (50 - 75 nmol/L) Sufficiency 30 - 100 ng/mL (75 - 250 nmol/L) Toxicity >100 ng/mL (>250 nmol/L) Performed By: #### L 500.4100, L501.0100, L501.9520, L501.9985, L506.1000 #### [facility] [address], [id number] Office Visit Reporton 2023 Office Visit Report [facility] [address] [address] OFFICE VISIT Date of Service: 01/17/24 MR#: [id number] Acct: [id number] Patient: FRANCIA BERMUDEZ Rep #: [id number] : 1970 Provider: Dr. Alexia ratliff MD Age/Sex: 53/F [place] [facility] [place]: Signed Intake Vital Signs 11/30/23 10:06 12/11/23 11:20 01/17/24 15:12 Height 5 ft 3 in 5 ft 3 in 5 ft 3 in Weight: 136 lb 6 oz 138 lb 8 oz 139 lb BMI 24.1 24.5 24.6 BP 118/75 134/83 H 131/76 H Pulse 83 84 92 Intake Visit Reasons: 1 M FU Chief Complaint: Weight and BP check for weight management Agricultural Lender Required: No Is patient in pain?: No Allergies promethazine (From Phenergan) Adverse Reaction (Unknown, Verified 01/17/24 15:13) Pt could not remember Is last menstrual period known: No Post menopausal: Yes Patient : No Have you fallen in the past year?: No Nurse's Note: Patient just started back to school. She plans on getting into a new routine and will follow up next with a nurse visit next month and then with a provider if changes are needed to be made. patient seen for obesity related comorbidities/weight management medication follow up. WM questionnaire answers reviewed with patient, and any questions answered. support given to patient consistent with treatment plan. vitals taken and script renewed by provider if appropriate. all relevant findings reviewed with the provider, script renewed if appropriate, and any changes to current treatment as well as the follow up plan reviewed with patient. Questionnaires Weight Management Follow-Up What nutritional plan/diet are you following?: Fasting/balanced How are you tracking your food intake?: Myfitness pal On average, how many days a week are you recording your food intake?: 0 How many days a week are you staying within your recommended intake goals?: 5 What is your current weekly exercise?: Five 3 mile walks, yoga On a scale of 1-10, how difficult is it to follow your current weight management plan?: 1 What are you struggling most with right now in following your weight loss plan?: Getting enough protein Are there any changes we need to make to your current plan right now?: No Side Effects: No Chest Pain, Yes Palpitations (W/ more caffeine), Yes Increased Heart Rate (Not sure if this or palp), No Irregular Heart Rhythm, No Increased Blood Pressure, No Change in breathing patterns, No Kidney Stones, No Change in vision, No Insomnia, No Difficulty with memory/speech, No Numbness in hands/feet, No New onset severe fatigue, No Nausea/vomiting, No Constipation and No Depressed mood Are there any side effects interfering with quality of life enough you would want to stop medication?: No What's improved for you since losing weight and making your lifestyle change?: Sleep apnea, joint pain, easier to exercise Is there anything else we can help you with on your weight loss journey today?: No 01/17/242018 Date Alexia Saucedoignfito Signature: Date (if applicable) CC: Normal [facility] DALE SCREENING W TOMOon 03-30 [facility] Absolute lymphocyte countOrd ered By: Dr. Porter on 10-06-2022 Lymphocytes Auto (Unsp spec) [#/Vol] 1.20 10*3/uL 0.83-4.51 [facility] Basophil percentageOrdered B y: Dr. Porter on 10-06-2022 Basophils/100 WBC (Bld) 0.4 % 0-1 [facility] Bilirubin [Mass/Vol] 0.30 mg/dL 0.20-1.00 [facility] Comment on above: For patients on eltr ombopag therapy, use of Dimension Basco TBIL is not recommended. Chloride [Moles/Vol] 108 mmol/L 98-107 [facility] Cholesterol [Mass/Vol] 227 mg/dL <200 [facility] Comment on above: <200 mg/dL Desirable 200-240 mg/dL Borderline >240 mg/dL High Risk Eosinophils/100 WBC (Bld) 2.3 % 0-5 [facility] Glucose [Mass/Vol] 110 mg/dL 74-106 [facility] Comment on above: Fasting Glucose resu lt from 100 to 125 mg/dL suggests IMPAIRED HOMEOSTASIS per A.D.A. criteria. Neutrophils (Bld) [#/Vol] 3.2 10*3/uL 2.0-7.7 [facility] Neutrophils/100 WBC (Bld) 66.0 % 47-70 [facility] Potassium [Moles/Vol] 3.9 mmol/L 3.5-5.1 [facility] Protein [Mass/Vol] 7.3 g/dL 6.4-8.2 [facility] Sodium [Moles/Vol] 142 mmol/L 136-145 [facility] Triglyceride [Mass/Vol] 119 mg/dL <199 [facility] Comment on above: The drugs N-Acetylcy steine and Metamizole may falsely depress this assay.Serum Triglycerides Reference Interval Normal <150 mg/dL Borderline high 150 - 199 mg/dL High 200 - 499 mg/dL Very High > or = 500 mg/dL WBC (Bld) [#/Vol] 4.8 10*3/uL 4.4-11.0 [facility] Blood erythrocytes count (nu mber/volume)Ordered By: Dr. Porter on 10-06-2022 RBC (Bld) [#/Vol] 4.38 10*6/uL 4.2-5.[address] [facility] Blood hemoglobin measurement (mass/volume)Ordered By: Dr. Porter on 10-06-2022 Hemoglobin (Bld) [Mass/Vol] 13.0 g/dL 12.0-15.0 [facility] Blood lymphocytes/100 leukoc ytesOrdered By: Dr. Porter on 10-06-2022 Lymphocytes/100 WBC (Bld) 25.2 % 19-41 [facility] Blood monocytes/100 leukocyt esOrdered By: Dr. Porter on 10-06-2022 Monocytes/100 WBC (Bld) 5.9 % 0-10 [facility] Blood platelet mean volumeOr dered By: Dr. Porter on 10-06-2022 Platelet mean volume (Bld) [Entitic vol] 10.5 fL 6.2-12.0 [facility] Determination of erythrocyte mean corpuscular volume (MCV)Ordered By: Dr. Porter on 10-06-2022 MCV (RBC) [Entitic vol] 92.7 fL 81-99 [facility] Hematocrit Auto (Bld) [Volum e fraction]Ordered By: Dr. Porter on 10-06-2022 Hematocrit (Bld) [Volume fraction] 40.6 % 37-47 [facility] - Chemistry and C hemistry - challengeOrdered By: Dr. Porter on 10-06-2022 ALP [Catalytic activity/Vol] 73 U/L 45-117 [facility] ALT [Catalytic activity/Vol] 20 U/L 13-56 [facility] CO2 [Moles/Vol] 30.0 mmol/L 21.0-32.0 [facility] Globulin (S) [Mass/Vol] 3.7 g/dL 2.2-4.2 [facility] Urea nitrogen/Creatinine [Mass ratio] 19.6 mg/mg 10-20 [facility] - Hematology and Cell countsOrdered By: Dr. Porter on 10-06-2022 Erythrocyte distribution width (RBC) [Entitic vol] 43.7 fL 35.1-43.9 [facility] Erythrocyte distribution width (RBC) [Ratio] 12.8 % 11.6-14.6 [facility] Immature granulocytes/100 WBC (Bld) 0.200 % 0.0-0.9 [facility] Comment on above: IG% - Immature Granu locytes (promyelocytes, myelocytes and metamyelocytes) > 1% indicates that a LEFT SHIFT is Present. MCH (RBC) [Entitic mass] 29.7 pg 27.0-32.0 [facility] Nucleated RBC/100 WBC (Bld) [Ratio] 0 % 0-5 [facility] MCHC Auto (RBC) [Mass/Vol]Or dered By: Dr. Porter on 10-06-2022 MCHC (RBC) [Mass/Vol] 32.0 g/dL 32-36 [facility] No Panel InformationOrdered By: Dr. Porter on 10-06-2022 Estimated GFR (MDRD) Amer 110 mL/min >60 [facility] Comment on above: GFR Calc Estimated GFR (MDRD) Non-Af Amer 91 mL/min >60 [facility] Comment on above: Non- GFR Calc Vitamin D 25-Hydroxy 45.8 ng/mL [facility] Comment on above: Vitamin D 25(OH) Sta tus Range Deficiency <20 ng/mL (50nmol/L) Insufficiency 20 - 30 ng/mL (50 - 75 nmol/L) Sufficiency 30 - 100 ng/mL (75 - 250 nmol/L) Toxicity >100 ng/mL (>250 nmol/L) Platelets bldOrdered By: Dr. Porter on 10-06-2022 Platelets (Bld) [#/Vol] 226 10*3/uL 150-450 [facility] Serum or plasma albumin ayan urement (mass/volume)Ordered By: Dr. Porter on 10-06-2022 Albumin [Mass/Vol] 3.6 g/dL 3.2-5.0 [facility] Serum or plasma albumin/glob ulin mass ratioOrdered By: Dr. Porter on 10-06-2022 Albumin/Globulin [Mass ratio] 1.0 {ratio} 0.9-2.4 [facility] Serum or plasma calcium ayan urement (mass/volume)Ordered By: Dr. Porter on 10-06-2022 Calcium [Mass/Vol] 8.8 mg/dL 8.5-10.1 [facility] Serum or plasma cholesterol in HDL measurement (mass/volume)Ordered By: Dr. Porter on 10-06-2022 Cholesterol in HDL [Mass/Vol] 59 mg/dL >40 [facility] Comment on above: The drugs N-Acetylcy steine and Metamizole may falsely depress this assay. Reference Range HDL <40 mg/dL Low HDL Cholesterol HDL >or= 60 mg/dL High HDL Cholesterol Serum or plasma cholesterol in VLDL measurement (mass/volume)Ordered By: Dr. Porter on 10-06-2022 Cholesterol in VLDL [Mass/Vol] 24 mg/dL 5-40 [facility] Serum or plasma creatinine m easurement (mass/volume)Ordered By: Dr. Porter on 10-06-2022 Creatinine [Mass/Vol] 0.72 mg/dL 0.55-1.02 [facility] Comment on above: The validity of the calculated GFR & GFRAA in patients over 70 years has not been determined. Clinical correlation is essential. Serum or plasma low density lipoprotein (LDL) cholesterol measurement (mass/volume)Ordered By: Dr. Porter on 10-06-2022 Cholesterol in LDL [Mass/Vol] 144 mg/dL 0-130 [facility] Serum or plasma urea nitroge n measurement (mass/volume)Ordered By: Dr. Porter on 10-06-2022 Urea nitrogen [Mass/Vol] 14 mg/dL 7-18 [facility] Thin prep Papanicolaou smear with manual screeningOrdered By: Dr. Porter on 10-06-2022 Thin prep Papanicolaou smear with manual screening 14 U/L 15-37 [facility] Thin prep Papanicolaou smear with manual screening 4 5-15 [facility] Whole blood hemoglobin A1c/t otal hemoglobin ratio (mass fraction)Ordered By: Dr. Porter on 10-06-2022 HbA1c (Bld) [Mass fraction] 5.4 % 3.8-5.6 [facility] Comment on above: Normal < 5.7 % Predi abetic 5.7 - 6.4 % Diabetic >or= 6.5 % Please note range changes. MRI BREAST WO/W IVCON BILATo n 09-04-2022 [facility] Cervical or vagninal specime n microscopic examination by cytology stain (reported asOrdered By: Dr. Porter on 08-03-2022 Cytology report Cyto stain Doc (Cvx/Vag) Comment . [facility] Comment on above: The Pap smear is a s creening test designed to aid in thedetection of premalignant and malignant conditions of theuterine cervix. It is not a diagnostic procedure andshould not be used as the sole means of detecting cervicalcancer. Both false-positive and false-negative reports dooccur. Detection in cervical specim en of any of human papilloma virus (HPV) 16, 18, 31, 33,Ordered By: Dr. Porter on 08-03-2022 HPV 16+18+31+33+35+39+45+ 51+52+56+58+59+66+68 DNA Probe+sig amp Ql (Cvx) Negative Negative [facility] Comment on above: This nucleic acid am plification test detects fourteen high- risk HPV types (16,18,31,33,35,39,45,51,52,56,58,59,66,68)without differentiation. Laboratory - CytologyOrdered By: Dr. Porter on 08-03-2022 [employer] Cyto stain Nom (Cvx/Vag) [ID] Comment . [facility] Comment on above: Viviana Prather, Cyto technologist (ASCP) Laboratory - Miscellaneous t estsOrdered By: Dr. Porter on 08-03-2022 Service comment (Unsp spec) [Interp] Comment . [facility] Comment on above: This liquid based Th inPrep(R) pap test was screened withthe use of an image guided system. Service comment (Unsp spec) [Interp] . . [facility] Liquid-based cerv Pap + CT/G C by JESS w reflex to high-risk HPV for ASCUSOrdered By: Dr. Porter on 08-03-2022 Cytology report Cyto stain.thin prep Doc (Cvx/Vag) Comment . [facility] Comment on above: Criteria not met, HP V Genotype not performed.Performed at: - [address] [id number] Director: Ella Salas MD, Phone: [phone] at: =[facility] [id number] Director: Ella Salas MD, Phone: [phone] No Panel InformationOrdered By: Dr. Porter on 08-03-2022 Pap Smear QC Review Comment . [facility] Comment on above: Sumaya Becerril, Cyto technologist Pathology report final diagnosis Narrative Comment . 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 XR Foot - right AP and Later al and obliqueon 11-26-2020 IMPRESSION: No acute osseous abnormality. Degenerative changes as described. Wall Taper: MAURO Transcribe Date/Time: Nov 26 2020 9:30A Dictated by : GAUDENCIO MEJIA MD This examination was interpreted and the report reviewed and electronically signed by: GAUDENCIO MEJIA MD on Nov 26 2020 9:32AM [facility] DIVISION OF RADIOLOGY * * *Final Report* * * DATE OF EXAM: Nov 26 2020 9:28AM WOX [id number] - XR FOOT 3V AP/LAT/OBL RT / PROCEDURE REASON: Foot pain, right * * * * Physician Interpretation * * * * EXAMINATION: XR FOOT 3V AP/LAT/OBL RT CLINICAL HISTORY: pt states pain for a month prox. 5th MT area denies inj Foot pain, right Technique: XR FOOT 3V AP/LAT/OBL RT -- RIGHT foot with 3 views on 3 images Comparison: None RESULT: No acute fracture or dislocation. There are mild degenerative changes at the 1st metatarsophalangeal joint. Mild narrowing of the interphalangeal joints of the RIGHT foot is also noted. Plantar calcaneal spur. No radiopaque foreign body. LEFT foot hallux valgus deformity. DIVISION OF RADIOLOGY Provider, [facility] - 11/26/2020 * * *Final Report* * * DATE OF EXAM: Nov 26 2020 9:28AM WOX [id number] - XR FOOT 3V AP/LAT/OBL RT / PROCEDURE REASON: Foot pain, right * * * * Physician Interpretation * * * * EXAMINATION: XR FOOT 3V AP/LAT/OBL RT CLINICAL HISTORY: pt states pain for a month prox. 5th MT area denies inj Foot pain, right Technique: XR FOOT 3V AP/LAT/OBL RT -- RIGHT foot with 3 views on 3 images Comparison: None RESULT: No acute fracture or dislocation. There are mild degenerative changes at the 1st metatarsophalangeal joint. Mild narrowing of the interphalangeal joints of the RIGHT foot is also noted. Plantar calcaneal spur. No radiopaque foreign body. LEFT foot hallux valgus deformity. IMPRESSION IMPRESSION: No acute osseous abnormality. Degenerative changes as described. Wall Taper: PSCB Transcribe Date/Time: Nov 26 2020 9:30A Dictated by : GAUDENCIO MEJIA MD This examination was interpreted and the report reviewed and electronically signed by: GAUDENCIO MEJIA MD on Nov 26 2020 9:32AM EST [facility] Radiology Study observation (narrative) [facility] XR Foot - right AP and Later al and obliqueOrdered By: [facility]cf Provider on 11-26-2020 [facility] Office Visit: Annualon 12-18 Documentation of current medications (procedure) Done Invalid Interpretation Code [facility] Documentation of current medications (procedure) T Invalid Interpretation Code [facility] Fall risk assessment No Bloo mington [facility] Protein [facility] conc [facility] Protein mass conc T [facility] Tobacco smoking status NHIS Never [facility] Tobacco smoking status NHIS Never smoker [facility] Tobacco use [facility] Never smoker Invalid Interpretation Code [facility] Office Visit: Annualon 10-05 Breast Mammogram screening Normal Bilateral [facility] Office Visit: Annualon 03-20 General categories [interpretation] of Cervical or vaginal smear or scraping by Cyto stain Normal [facility] Vital Signs Date Time Vital Sign Value Performing Clinician Facility 11-18-2024 13:15-0400 Body height 160.[address] Zeny Ricardo MD Work Phone: [facility] 11-18-2024 13:15-0400 Body mass index (BMI) [Ratio] 25 kg/m2 Dr. Zeny Ricardo MD Work Phone: [facility] 11-18-2024 13:15-0400 Body weight 64.[address] Zeny Ricardo MD Work Phone: [facility] 11-18-2024 13:15-0400 Diastolic blood pressure 76 mm[Hg] Dr. Zeny Ricardo MD Work Phone: [facility] 11-18-2024 13:15-0400 Heart rate 72 /min Dr. Zeny Ricardo MD Work Phone: [facility] 11-18-2024 13:15-0400 Systolic blood pressure 116 mm[Hg] Dr. Zeny Ricardo MD Work Phone: [facility] 11-03-2024 11:38-0400 Body mass index (BMI) [Ratio] 24.69 kg/m2 Lena Fleming APRN.CNP Work Phone: [facility] 11-03-2024 11:38-0400 Body temperature 97.5 [degF] Lena Fleming CAPACITY ANALYST.PUBLICITY EXPERT Work Phone: [facility] 11-03-2024 11:38-0400 Body weight 64 kg Lena Fleming CAPACITY ANALYST.PUBLICITY EXPERT Work Phone: [facility] 11-03-2024 11:38-0400 Diastolic blood pressure 78 mm[Hg] Lena Fleming CAPACITY ANALYST.PUBLICITY EXPERT Work Phone: [facility] 11-03-2024 11:38-0400 Heart rate 93 /min Lena Fleming CAPACITY ANALYST.PUBLICITY EXPERT Work Phone: [facility] 11-03-2024 11:38-0400 Respiratory rate 18 /min Lena Fleming CAPACITY ANALYST.PUBLICITY EXPERT Work Phone: [facility] 11-03-2024 11:38-0400 SaO2% (BldA) [Mass fraction] 100 % Lena Fleming CAPACITY ANALYST.PUBLICITY EXPERT Work Phone: [facility] 11-03-2024 11:38-0400 Systolic blood pressure 119 mm[Hg] Lena Fleming CAPACITY ANALYST.PUBLICITY EXPERT Work Phone: [facility] 10-07-2024 18:12-0400 Body mass index (BMI) [Ratio] 24.46 kg/m2 Rodri Syed CAPACITY ANALYST.PUBLICITY EXPERT Work Phone: [facility] 10-07-2024 18:12-0400 Body temperature 97.81 [degF] Rodri Syed CAPACITY ANALYST.PUBLICITY EXPERT Work Phone: [facility] 10-07-2024 18:12-0400 Body weight 63.4 kg Rodri Syed CAPACITY ANALYST.PUBLICITY EXPERT Work Phone: [facility] 10-07-2024 18:12-0400 Diastolic blood pressure 82 mm[Hg] Rodri Syed CAPACITY ANALYST.PUBLICITY EXPERT Work Phone: [facility] 10-07-2024 18:12-0400 Heart rate 74 /min Rodri Syed CAPACITY ANALYST.PUBLICITY EXPERT Work Phone: [facility] 10-07-2024 18:12-0400 Respiratory rate 18 /min Rodri Syed CAPACITY ANALYST.PUBLICITY EXPERT Work Phone: [facility] 10-07-2024 18:12-0400 Systolic blood pressure 128 mm[Hg] Rodri Syed CAPACITY ANALYST.PUBLICITY EXPERT Work Phone: [facility] 08-21-2024 15:31-0400 Body mass index (BMI) [Ratio] 24.4 kg/m2 Dr. Zeny Ricardo MD Work Phone: [facility] 08-21-2024 15:31-0400 Body weight 62.[address] Zeny Ricardo MD Work Phone: [facility] 08-21-2024 15:31-0400 Diastolic blood pressure 82 mm[Hg] Dr. Zeny Ricardo MD Work Phone: [facility] 08-21-2024 15:31-0400 Heart rate 77 /min Dr. Zeny Ricardo MD Work Phone: [facility] 08-21-2024 15:31-0400 Systolic blood pressure 117 mm[Hg] Dr. Zeny Ricardo MD Work Phone: [facility] 04-04-2024 11:01-0400 Body height 161 cm Lena Fleming CAPACITY ANALYST.PUBLICITY EXPERT Work Phone: [facility] 04-04-2024 11:01-0400 Body mass index (BMI) [Ratio] 24.23 kg/m2 Lena Fleming CAPACITY ANALYST.PUBLICITY EXPERT Work Phone: [facility] 04-04-2024 11:01-0400 Body temperature 98.01 [degF] Lena Fleming CAPACITY ANALYST.PUBLICITY EXPERT Work Phone: [facility] 04-04-2024 11:01-0400 Body weight 62.8 kg Lena Fleming CAPACITY ANALYST.PUBLICITY EXPERT Work Phone: [facility] 04-04-2024 11:01-0400 Diastolic blood pressure 51 mm[Hg] Lena Bernadette CAPACITY ANALYST.PUBLICITY EXPERT Work Phone: [facility] 04-04-2024 11:01-0400 Heart rate 83 /min Lena Bernadette CAPACITY ANALYST.PUBLICITY EXPERT Work Phone: [facility] 04-04-2024 11:01-0400 Respiratory rate 16 /min Lena Bernadette CAPACITY ANALYST.PUBLICITY EXPERT Work Phone: [facility] 04-04-2024 11:01-0400 SaO2% (BldA) [Mass fraction] 100 % Lena Bernadette CAPACITY ANALYST.PUBLICITY EXPERT Work Phone: [facility] Comment on above: RA 04-04-2024 11:01-0400 Systolic blood pressure 138 mm[Hg] Lena Bernadette CAPACITY ANALYST.PUBLICITY EXPERT Work Phone: [facility] 03-30-2023 09:33-0400 Body temperature 98.01 [degF] Lena Bernadette CAPACITY ANALYST.PUBLICITY EXPERT Work Phone: [facility] 03-30-2023 09:33-0400 Body weight 67.59 kg Lena Bernadette CAPACITY ANALYST.PUBLICITY EXPERT Work Phone: [facility] 03-30-2023 09:33-0400 Diastolic blood pressure 90 mm[Hg] Lena Bernadette CAPACITY ANALYST.PUBLICITY EXPERT Work Phone: [facility] 03-30-2023 09:33-0400 Heart rate 80 /min Lena Bernadette CAPACITY ANALYST.PUBLICITY EXPERT Work Phone: [facility] 03-30-2023 09:33-0400 Respiratory rate 18 /min Lena Bernadette CAPACITY ANALYST.PUBLICITY EXPERT Work Phone: [facility] 03-30-2023 09:33-0400 SaO2% (BldA) [Mass fraction] 100 % Lena Bernadette CAPACITY ANALYST.PUBLICITY EXPERT Work Phone: [facility] 03-30-2023 09:33-0400 Systolic blood pressure 139 mm[Hg] Lena Bernadette CAPACITY ANALYST.PUBLICITY EXPERT Work Phone: [facility] 10-02-2022 16:15-0400 Body height 160.[address] Toshia Kingsley Work Phone: [facility] 10-02-2022 16:13-0400 Body mass index (BMI) [Ratio] 32.3 kg/m2 Dr. oTshia Kingsley Work Phone: [facility] 10-02-2022 16:13-0400 Body weight 82.[address] Toshia Kingsley Work Phone: [facility] 10-02-2022 16:13-0400 Diastolic blood pressure 80 mm[Hg] Dr. Toshia Kingsley Work Phone: [facility] 10-02-2022 16:13-0400 Heart rate 75 /min Dr. Toshia Kingsley Work Phone: [facility] 10-02-2022 16:13-0400 Systolic blood pressure 118 mm[Hg] Dr. Toshia Kingsley Work Phone: [facility] 09-04-2022 11:22-0400 Body height 160 cm Lena Bernadette CAPACITY ANALYST.PUBLICITY EXPERT Work Phone: [facility] 09-04-2022 11:22-0400 Body temperature 98.2 [degF] Lena Bernadette CAPACITY ANALYST.PUBLICITY EXPERT Work Phone: [facility] 09-04-2022 11:22-0400 Body weight 82.15 kg Lena Bernadette CAPACITY ANALYST.PUBLICITY EXPERT Work Phone: [facility] 09-04-2022 11:22-0400 Diastolic blood pressure 74 mm[Hg] Lena Bernadette CAPACITY ANALYST.PUBLICITY EXPERT Work Phone: [facility] 09-04-2022 11:22-0400 Heart rate 66 /min Lena Bernadette CAPACITY ANALYST.PUBLICITY EXPERT Work Phone: [facility] 09-04-2022 11:22-0400 Respiratory rate 16 /min Lena Bernadette CAPACITY ANALYST.PUBLICITY EXPERT Work Phone: [facility] 09-04-2022 11:22-0400 SaO2% (BldA) [Mass fraction] 100 % Lena Fleming CAPACITY ANALYST.PUBLICITY EXPERT Work Phone: [facility] 09-04-2022 11:22-0400 Systolic blood pressure 133 mm[Hg] Lena Bernadette CAPACITY ANALYST.PUBLICITY EXPERT Work Phone: [facility] 08-03-2022 16:25-0500 Body height 160.[address] Toshia Kingsley Work Phone: [facility] 08-03-2022 16:20-0500 Body mass index (BMI) [Ratio] 31.9 kg/m2 Dr. Toshia Kingsley Work Phone: [facility] 08-03-2022 16:20-0500 Body weight 81.[address] Toshia Kingsley Work Phone: [facility] 08-03-2022 16:20-0500 Diastolic blood pressure 82 mm[Hg] Dr. Toshia Kingsley Work Phone: [facility] 08-03-2022 16:20-0500 Systolic blood pressure 125 mm[Hg] Dr. Toshia Kingsley Work Phone: [facility] 03-17-2022 09:12-0400 Body height 160 cm Huma Good MD Work Phone: [facility] 03-17-2022 09:12-0400 Body temperature 97.81 [degF] Huma Good MD Work Phone: [facility] 03-17-2022 09:12-0400 Body weight 82.42 kg Huma Good MD Work Phone: [facility] 03-17-2022 09:12-0400 Diastolic blood pressure 80 mm[Hg] Huma Good MD Work Phone: [facility] 03-17-2022 09:12-0400 Heart rate 67 /min Huma Good MD Work Phone: [facility] 03-17-2022 09:12-0400 Respiratory rate 16 /min Huma Good MD Work Phone: [facility] 03-17-2022 09:12-0400 SaO2% (BldA) [Mass fraction] 100 % Huma Good MD Work Phone: [facility] 03-17-2022 09:12-0400 Systolic blood pressure 121 mm[Hg] Huma Good MD Work Phone: [facility] 11-02-2021 15:30-0400 Body temperature 98.29 [degF] Ken Pendlebury CAPACITY ANALYST.PUBLICITY EXPERT Work Phone: [facility] 11-02-2021 15:30-0400 Body weight 80.65 kg Ken Pendlebury CAPACITY ANALYST.PUBLICITY EXPERT Work Phone: [facility] 11-02-2021 15:30-0400 Diastolic blood pressure 82 mm[Hg] Ken Pendlebury CAPACITY ANALYST.PUBLICITY EXPERT Work Phone: [facility] 11-02-2021 15:30-0400 Heart rate 100 /min Ken Pendlebury CAPACITY ANALYST.PUBLICITY EXPERT Work Phone: [facility] 11-02-2021 15:30-0400 Respiratory rate 21 /min Ken Pendlebury CAPACITY ANALYST.PUBLICITY EXPERT Work Phone: [facility] 11-02-2021 15:30-0400 SaO2% (BldA) [Mass fraction] 99 % Ken Pendlebury CAPACITY ANALYST.PUBLICITY EXPERT Work Phone: [facility] 11-02-2021 15:30-0400 Systolic blood pressure 128 mm[Hg] Ken Pendlebury CAPACITY ANALYST.PUBLICITY EXPERT Work Phone: [facility] 12-18-2016 16:22-0400 BMI (Body Mass Index) 28.87 kg/m2 Alexia Porter MD [facility] 12-18-2016 16:22-0400 BP Diastolic 81 mm[Hg] Alexia Porter MD [facility] 12-18-2016 16:22-0400 BP Systolic 134 mm[Hg] Alexia Porter MD [facility] 12-18-2016 16:22-0400 Height 160.02 cm Alexia Porter MD [facility] 12-18-2016 16:0400 Pulse (Heart Rate) 68 /min Alexia Porter MD [facility] 12-18-2016 16:-0400 Respiratory Rate 16 /min Alexia Porter MD [facility] 12-18-2016 16:0400 Weight 73.94 kg Alexia Porter MD [facility] Encounters Encounter Date Encounter Type Care Provider Facility Start: 12-18-2024 End: 12-18-2024 Patient encounter procedure Janet MAHER -[facility] Work Phone: Start: 12-18-2024 End: 12-18-[address] Zeny Ricardo MD Work Phone: -[facility] Start: 11-18-2024 End: 11-18-2024 Patient encounter procedure Janet MAHER -[facility] Work Phone: Start: 11-18-2024 End: 11-18-[address] Zeny Ricardo MD Work Phone: [facility] Work Phone: Start: 11-03-2024 End: 11-03-2024 Refill Lena Fleming APRN.PUBLICITY EXPERT Work Phone: Hematology/Oncology Comment on above: Med Change Request Start: 11-03-2024 End: 11-03-2024 Follow-up encounter Lena Fleming APRN.PUBLICITY EXPERT Work Phone: Hematology/Oncology Comment on above: Encounter for routin e cancer follow-up (Primary Dx); History of breast cancer; Encounter for screening mammogram for malignant neoplasm of breast Start: 11-03-2024 End: 11-03-2024 Patient encounter procedure Lena Fleming APRN.PUBLICITY EXPERT Work Phone: Hematology/Oncology Start: 11-03-2024 End: 11-03-2024 ambulatory Lena Fleming APRN.PUBLICITY EXPERT Work Phone: Hematology/Oncology Comment on above: Bloodwork Start: 11-03-2024 End: 11-03-2024 Subsequent hospital visit by physician Mri Main A10 (Large Bore/1.5t) Work Phone: MRI A10 Comment on above: Breast cancer screen ing, high risk patient [Z12.39] Start: 10-09-2024 End: 10-10-2024 Follow-up encounter Emani Ramos APRN.CNP Work Phone: [facility] Start: 10-07-2024 End: 10-07-2024 Patient encounter procedure Rodri Syed APRN.PUBLICITY EXPERT Work Phone: [facility] Comment on above: Urinary frequency (P rimary Dx); Urinary tract infection without hematuria, site unspecified Start: 10-07-2024 End: 10-07-2024 ambulatory ZENY RICARDO Facility:[facility] Start: 08-21-2024 End: 08-21-2024 Patient encounter procedure Janet Gutierrez NP-C -[facility] Work Phone: Start: 08-21-2024 End: 08-21-2024 ambulatory Janet Gutierrez Facility:[facility] Start: 05-29-2024 End: 05-29-2024 ambulatory Alexia Porter Facility:[facility] Start: 05-06-2024 End: 05-06-2024 ambulatory Lena Fleming APRN.CNP Work Phone: Hematology/Oncology Comment on above: Breast Cancer Index results Start: 05-06-2024 End: 05-06-2024 E-mail encounter from caregiver Lena Fleming APRN.CNP Work Phone: Hematology/Oncology Start: 04-12-2024 End: 04-14-2024 Get Medical Advice Lena Fleming APRN.CNP Work Phone: Hematology/Oncology Comment on above: Tamoxifen refill Start: 04-07-2024 End: 04-08-2024 ambulatory Lena Fleming APRN.CNP Work Phone: Hematology/Oncology Comment on above: Mammogram results Start: 04-04-2024 End: 04-04-2024 Telephone encounter Breanna Marmolejo RN Work Phone: Hematology/Oncology Comment on above: Care Coordination (B CI testing) Start: 04-04-2024 End: 04-04-2024 Patient encounter procedure Lena Fleming APRN.CNP Work Phone: Hematology/Oncology Start: 04-04-2024 End: 04-04-2024 Subsequent hospital visit by physician Bone Density Main A21 2 Radiology Comment on above: Aromatase inhibitor use [Z79.811] Start: 04-04-2024 End: 04-04-2024 ambulatory Lena Fleming APRN.CNP Work Phone: Hematology/Oncology Comment on above: Malignant neoplasm o f right breast in female, estrogen receptor positive, unspecified site of breast (HCC) (Primary Dx); Long-term current use of tamoxifen; Sexual dysfunction in female; Breast cancer screening, high risk patient Start: 04-04-2024 End: 04-04-2024 Subsequent hospital visit by physician Clinic Imaging Mammo Main Ca Work Phone: Mammography Comment on above: Encounter for screen ing mammogram for high-risk patient [Z12.31] Start: 02-22-2024 End: 02-22-2024 ambulatory [facility] Facility:[facility] Start: 02-22-2024 End: 02-22-2024 ambulatory [facility] Facility:[facility] Start: 01-17-2024 End: 01-17-2024 ambulatory [facility] Facility:[facility] Start: 03-30-2023 Documentation procedure [facility]og korey [facility] Start: 03-30-2023 Letter encounter Mammography Coordinator [facility] Department Start: 03-30-2023 End: 03-30-2023 Follow-up encounter Lena Fleming APRN.CNP Work Phone: Hematology/Oncology Comment on above: Encounter for routin e cancer follow-up (Primary Dx); Long-term current use of tamoxifen; Breast cancer screening, high risk patient Start: 03-30-2023 End: 03-30-2023 Patient encounter procedure Lena Fleming APRN.CNP Work Phone: [facility] Start: 03-30-2023 End: 03-30-2023 Subsequent hospital visit by physician Clinic Diagnostic Mammo Main Ca Work Phone: Mammography Comment on above: Encounter for screen ing mammogram for breast cancer [Z12.31] Start: 03-10-2023 ambulatory Huma Good MD Work Phone: Hematology/Oncology Comment on above: Reference/guidance f or friend recently diagnosed Start: 02-27-2023 Refill Huma Good MD Work Phone: Hematology/Oncology Comment on above: Refill Request Start: 10-06-2022 End: 10-06-2022 Non-patient / Non-visit Dr. Toshia Kingsley Work Phone: [facility] Start: 10-06-2022 End: 10-06-[address] Toshia Kingsley Work Phone: [facility] Work Phone: Start: 10-06-2022 End: 10-06-[address] Toshia Kingsley Work Phone: [facility]-Pulmonary Services/Neurology Start: 10-02-2022 End: 10-02-[address] Toshia Kingsley Work Phone: [facility] Start: 09-24-2022 ambulatory Lena payton APRN.PUBLICITY EXPERT Work Phone: Hematology/Oncology Comment on above: Possible Medication interaction Start: 09-04-2022 End: 09-04-2022 Follow-up encounter Lena Fleming APRN.PUBLICITY EXPERT Work Phone: Hematology/Oncology Comment on above: Encounter for routin e cancer follow-up (Primary Dx); Encounter for screening mammogram for breast cancer; Malignant neoplasm of right breast in female, estrogen receptor positive, unspecified site of breast (HCC); Long-term current use of tamoxifen Start: 09-04-2022 End: 09-04-2022 Patient encounter procedure Lena Fleming APRN.PUBLICITY EXPERT Work Phone: [facility] Start: 09-04-2022 End: 09-04-2022 Subsequent hospital visit by physician Mri Main A10 (Large Bore/1.5t) Work Phone: MRI A10 Comment on above: Malignant neoplasm o f right breast in female, estrogen receptor positive, unspecified site of breast (HCC) [C50.911, Z17.0] Start: 08-03-2022 End: 08-03-[address] Toshia Kingsley Work Phone: [facility] Work Phone: Start: 08-03-2022 End: 08-03-[address] Toshia Kingsley Work Phone: [facility]-Laboratory, Specimen Start: 08-03-2022 End: 08-03-[address] Toshia Kingsley Work Phone: [facility] Start: 03-17-2022 End: 03-17-2022 ambulatory Huma Good MD Work Phone: Hematology/Oncology Comment on above: Malignant neoplasm o f right breast in female, estrogen receptor positive, unspecified site of breast (HCC) (Primary Dx) Start: 03-17-2022 End: 03-17-2022 Patient encounter procedure Huma Good MD Work Phone: [facility] Start: 03-10-2022 ambulatory Lena payton CAPACITY ANALYST.PUBLICITY EXPERT Work Phone: Hematology/Oncology Comment on above: Bone density test Start: 11-02-2021 End: 11-02-2021 Patient encounter procedure Ken Wolf APRN.PUBLICITY EXPERT Work Phone: [facility] Comment on above: Bacterial sinusitis (Primary Dx) Start: 10-12-2021 ambulatory Huma Good MD Work Phone: Hematology/Oncology Comment on above: Diagnostic code that is being denied by my insurance Start: 08-31-2021 End: 08-31-2021 Patient encounter procedure Ralph Javier DO Work Phone: [facility] Comment on above: Foot pain, right (Pr imary Dx); Hallux valgus (acquired), left foot Start: 11-26-2020 End: 11-26-2020 Subsequent hospital visit by physician Xr [facility] Work Phone: Radiology Comment on above: Foot pain, right [M7 9.671] Start: 01-10-2011 End: 03-25-2012 Patient encounter status Xr [facility] Work Phone: [facility] Procedures Date Procedure Procedure Detail Performing Clinician Start: 10-07-2024 Urnls dip stick/tablet rgnt auto w/o microscopy Reza Griffith CAPACITY ANALYST.PUBLICITY EXPERT Work Phone: Start: 04-04-2024 Dxa bone density study 1/> sites axial karlael Huma Good MD Work Phone: Start: 03-30-2023 Screening digital breast tomosynthesis samantha Fleming CAPACITY ANALYST.PUBLICITY EXPERT Work Phone: Start: 09-04-2022 Mri breast without&with contrast w/cad bilateral Huma Good MD Work Phone: Start: 03-17-2022 Mammography Huma Good MD Work Phone: Start: 12-02-2020 Mammography Ralph Herrera V DO Work Phone: Start: 11-26-2020 Radex foot complete minimum 3 views Concepción Rivera PA-C Work Phone: Start: 12-18-2016 Gynecologic examination Annual gynecological examination Alexia Porter MD Start: 12-18-2016 End: 12-19-2016 Screening mammography Screening mammogram for breast cancer Alexia Porter MD Start: 01-05-2016 Lipid 1996 panel - Serum or Plasma Huma Good MD Work Phone: Start: 03-17-2009 History of augmentation of breast S/P bilateral breast implants Ralph Herrera V DO Work Phone: Plan of Treatment Date Care Activity Detail Author Start: 05-26-2025 End: 05-26-2025 Follow-up encounter 05/26/2025 1:30 PM EST Visit (SP) Office Hematology/Oncology [address] [id number] [place] [address] [address] [id number] follow up Hematology/Oncology Comment on above: follow up Start: 05-26-2025 End: 05-26-2025 Patient encounter procedure 05/26/2025 12:10 PM EST Appointment Mammography [id number] [place], [place] [address] Encounter for screening mammogram for malignant neoplasm of breast [Z12.31] Mammography Comment on above: Encounter for screen ing mammogram for malignant neoplasm of breast [Z12.31] Start: 05-05-2025 End: 12-03-2025 DBT Breast - bilateral screening DALE SCREENING W ADRIAN Radiology Routine Encounter for screening mammogram for malignant neoplasm of breast Expected: 05/05/2025, Expires: 12/03/2025 [facility] Work Phone: Comment on above: Expected: 05/05/2025 , Expires: 12/03/2025 Start: 04-04-2025 Screening for malign ant neoplasm of breast Mammogram Screening [facility] Start: 02-02-2025 Influenza vaccination Influenz a Vaccine (Season Ended) [facility] Start: 11-03-2024 End: 11-03-2024 Follow-up encounter 11/03/2024 12:00 PM EDT Visit (SP) Office Hematology/Oncology [address] [address] Lena Fleming, NORMAN.PUBLICITY EXPERT [address] [address] follow up Hematology/Oncology Comment on above: follow up Start: 11-03-2024 End: 11-03-2024 Patient encounter procedure 11/03/2024 10:40 AM EDT Appointment MRI A10 [address] [id number] Breast cancer screening, high risk patient [Z12.39] MRI A10 Comment on above: Breast cancer screen ing, high risk patient [Z12.39] Start: 10-02-2024 End: 05-04-2025 MR Breast - bilateral WO and W contrast IV MRI BREAST WO/W IVCON BILATERAL Radiology Routine Breast cancer screening, high risk patient Expected: 10/02/2024, Expires: 05/04/2025 [facility] Work Phone: Comment on above: Expected: 10/02/2024 , Expires: 05/04/2025 Start: 06-17-2024 End: 06-17-2024 Patient encounter procedure 06/17/2024 3:00 PM EST Office Visit Gynecology [address] [id number] [place] [address] [place], [place] [id number] [facility] Gynecology Comment on above: CONSULT TO [facility] Start: 04-04-2024 End: 04-04-2024 ambulatory 04/04/2024 11:00 AM EDT Visit (SP) Office Hematology/Oncology [address] [place] [address] Lena Fleming APRN.PUBLICITY EXPERT [address] [place] [address] f/u per pt req Hematology/Oncology Comment on above: f/u per pt req Start: 04-04-2024 End: 04-04-2024 Patient encounter procedure Mammography Comment on above: Encounter for screen ing mammogram for high-risk patient [Z12.31] Aromatase inhibitor use [Z79.811] Start: 03-30-2024 Mammography Mammogram Screening [facility] Start: 03-30-2024 Screening for malign ant neoplasm of breast Mammogram Screening [facility] Start: 02-03-2024 Covid-19 Vaccine ( season) Covid-19 Vaccine () [facility] Start: 02-03-2024 Influenza vaccination Influenza Vacc ine (#1) [facility] Start: 12-03-2023 DIABETES SCREEN DIABETES SCREEN [facility] Start: 12-03-2023 Diabetes Screening Diabetes Screenin g [facility] Start: 09-29-2023 End: 04-28-2024 MRI BREAST WO/W IVCON BILATERAL MRI BREAST WO/W IVCON BILATERAL Radiology Routine Breast cancer screening, high risk patient Expected: 09/29/2023, Expires: 04/28/2024 [facility] Work Phone: Comment on above: Expected: 09/29/2023 , Expires: 04/28/2024 Start: 03-17-2023 Mammography [facility] Start: 03-06-2023 End: 10-04-2023 DALE SCREENING W ADRIAN DALE SCREENING W ADRIAN Radiology Routine Encounter for screening mammogram for breast cancer Expected: 03/06/2023, Expires: 10/04/2023 [facility] Work Phone: Comment on above: Expected: 03/06/2023 , Expires: 10/04/2023 Start: 02-02-2023 Covid-19 Vaccine ( season) Covid-19 Vaccine () [facility] Start: 02-02-2023 Influenza vaccination [facility] Start: 09-15-2022 End: 04-16-2023 Mri breast without&with contrast w/cad bilateral MRI BREAST WO/W IVCON BILAT Radiology Routine Malignant neoplasm of right breast in female, estrogen receptor positive, unspecified site of breast (HCC) Expected: 09/15/2022 (Approximate), Expires: 04/16/2023 [facility] Work Phone: Comment on above: Expected: 09/15/2022 (Approximate), Expires: 04/16/2023 Start: 08-03-2022 Liquid based cervica l cytology screening [facility] Start: 02-02-2022 Influenza vaccination [facility] Start: 12-02-2021 Mammography MAMMOGRAM [facility] Start: 02-02-2021 Influenza vaccination INFLUENZA (#1) [facility] Start: 01-04-2021 Lipid 1996 panel - Serum or Plasma Lipid Screening [facility] Start: 01-04-2021 Lipid panel Lipid Screening [facility] Start: 01-04-2021 LIPID SCREEN LIPID SCREEN [facility] Start: 10-07-2020 COVID-19 VACCINE (3 - Booster for Pfizer series) COVID-19 VACCINE (3 - Booster for Pfizer series) [facility] Start: 10-07-2020 Covid-19 Vaccine (3 - Pfizer series) Covid-19 Vaccine (3 - Pfizer series) [facility] Start: 09-09-2020 COVID-19 VACCINE (3 - Pfizer risk 4-dose series) COVID-19 VACCINE (3 - Pfizer risk 4-dose series) [facility] Start: 09-09-2020 COVID-19 VACCINE (3 - Pfizer risk series) COVID-19 VACCINE (3 - Pfizer risk series) [facility] Start: 2020 Pneumococcal Vaccine : 50+ (1 of 1 - PCV) Pneumococcal Vaccine: 50+ (1 of 1 - PCV) [facility] Start: 2020 SHINGRIX VACCINE (1 of 2) SHINGRIX VACCINE (1 of 2) [facility] Start: 02-12-2020 Urine microalbumin profile [facility] Start: 03-25-2017 HPV TESTING HPV TESTING [facility] Start: 03-25-2017 PAP TESTING PAP TESTING [facility] Start: 03-25-2017 Screening for malign ant neoplasm of cervix Cervical Cancer Screening [facility] Start: 12-18-2016 End: 12-18-2016 Mammogram, Bilateral Mammogram, Bilateral [facility] Start: 2015 COLOGUARD (FIT-DNA) COLOGUARD (FIT-D NA) [facility] Start: 2015 Colonoscopy COLONOSCOPY [facility] Start: 2015 COLORECTAL CANCER SCREENING COLORECTAL CANCER SCREENING [facility] Start: [address] COLONOGRAPHY [facility] Start: 2015 FECAL OCCULT BLOOD FECAL OCCULT BLOO D [facility] Start: 2015 Screening for malign ant neoplasm of colon [facility] Start: 2015 SIGMOIDOSCOPY SIGMOIDOSCOPY [facility] Start: 1989 Hepatitis B Vaccine (1 of 3 - 19+ 3-dose series) Hepatitis B Vaccine (1 of 3 - 19+ 3-dose series) [facility] Start: 1988 Anxiety Screening Anxiety Screening [facility] Start: 1988 HEPATITIS C SCREENING HEPATITIS C [facility] Start: 1988 Hepatitis C screening Hepatitis C [facility] Start: 1988 HIV SCREENING HIV SCREENING [facility] Start: 1988 HIV screening HIV Screening [facility] Start: 1976 PNEUMOCOCCAL (1 - PCV) PNEUMOCOCCAL (1 - PCV) [facility] Start: 1970 HEPATITIS B (1 of 3 - 3-dose series) HEPATITIS B (1 of 3 - 3-dose series) [facility] Start: 1970 Hepatitis B Vaccine (1 of 3 - 3-dose series) Hepatitis B Vaccine (1 of 3 - 3-dose series) [facility] Bacteria identified in Urine by Culture BACTERIAL CULTURE, URINE Microbiology Routine Urinary frequency Ordered: 10/07/2024 [facility] Work Phone: Comment on above: Ordered: 10/07/2024 DBT Breast - bilater al screening DALE SCREENING W ADRIAN Radiology Routine Encounter for screening mammogram for high-risk patient 04/04/2024 9:35 AM EDT [facility] Work Phone: End: 04-12-2023 Dxa bone density study 1/> sites axial skel DXA-AXIAL SKELETON Radiology Routine Aromatase inhibitor use 1 Occurrences starting 03/13/2022 until 04/12/2023 [facility] Work Phone: Comment on above: 1 Occurrences starti ng 03/13/2022 until 04/12/2023 End: 11-03-2024 MR Breast - bilateral WO and W contrast IV [facility] Work Phone: Comment on above: 1 Occurrences starti ng 11/03/2024 until 11/03/2024 End: 04-28-2024 MRI 3D POST PROCESSING MRI 3D POST PROCESSING Radiology Routine Breast cancer screening, high risk patient 1 Occurrences starting 03/30/2023 until 04/28/2024 [facility] Work Phone: Comment on above: 1 Occurrences starti ng 03/30/2023 until 04/28/2024 Path report.final Dx Spec [facility] Immunizations Immunization Date Immunization Notes Care Provider Mikael amaro 03-18-2020 influenza virus vaccine, unspecified formulation Hmua Good MD Work Phone: [facility] 02-24-2016 influenza, injectabl e, quadrivalent, contains preservative Ralphandrea Herrera V, DO Work Phone: [facility] Work Phone: 02-11-2010 tetanus toxoid, redu kizzy diphtheria toxoid, and acellular pertussis vaccine, adsorbed Ralph Javier V, DO Work Phone: [facility] 03-17-2009 influenza virus vaccine, unspecified formulation Ralph Herrera V, DO Work Phone: [facility] Work Phone: Payers Date Payer Category Payer Self-pay [id number] 2014 Private Health Insurance [employer] A ETNA CHOICE POS II [id number] 2014-Present [phone] [address] [place] [address] POS [id number] 2014 Private Health Insurance [id number] 2014 Private Health Insurance [id number] Unknown KAVITHA [id number] Unknown [id number] Unknown [id number] Unknown [id number] Unknown [id number] Unknown [id number] Unknown [id number] Social History Date Type Detail Facility Start: 11-25-2010 End: 12-18-2024 Tobacco smoking status NHIS Never smoked tobacco [facility] Start: 08-31-2021 End: 04-04-2024 Alcohol intake Current drinker of alcohol (finding) [facility] Start: 11-01-2017 History SDOH Alcohol Comment Occasionally: 2 times per week [facility] Start: 1970 Sex Assigned At Not on file [facility] Start: 08-21-2021 End: 03-17-2022 Exposure to SARS-CoV-2 (event) Not sure [facility] Start: 11-25-2010 Tobacco use and exposure Smokeless tobacco non-user [facility] Work Phone: Start: 08-03-2022 End: 10-02-2022 Tobacco smoking status NHIS Unknown if ever smoked [facility] Start: 1970 Sex Assigned At Female [facility] Start: 03-17-2022 End: 03-30-2023 History of Social function [facility] Start: 03-17-2022 End: 03-30-2023 Tobacco use panel [facility] Adult Depression Screening Assessment 4 [facility] Medical Equipment Procedure Code Equipment Code Equipment Origin al Text Equipment Identifier Dates Clip Endscp Flsh Smpl Rlb - [id number] Start: 01-14-2013 Comment on above: Description: FILSHIE CLIPS Matrix Alloderm Thick Acellular Dermis 16x6cm Tissue Allograft Regenerative - [id number] Start: 11-16-2017 Wjt-Or-T-Kind Implant - [id number] Start: 11-16-2017 Imp Brst 650cc S sx Nimco Inspr - [id number] Start: 03-11-2018 Imp Brst 325cc S sf Nimco Inspr - [id number] Start: 03-11-2018 Functional Status Date Assessment Result Facility 11-17-2017 Are you deaf, or do you have serious difficulty hearing No 11/17/2017 9:59 AM EDT Lizbeth Moctezuma, ANAYA No [facility] 11-17-2017 Are you blind, or do you have serious difficulty seeing, even when wearing glasses No 11/17/2017 9:59 AM EDT Lizbeth Moctezuma, ANAYA No [facility] 11-17-2017 Do you have serious difficulty walking or climbing stairs No 11/17/2017 9:59 AM EDT Lizbeth Moctezuma, ANAYA No [facility] 11-17-2017 Do you have difficul ty dressing or bathing No 11/17/2017 9:59 AM EDT Lizbeth Moctezuma, ANAYA No [facility] 11-17-2017 Because of a physica l, mental, or emotional condition, do you have difficulty doing errands alone such as visiting a physician's office or shopping No 11/17/2017 9:59 AM EDT Lizbeth Moctezuma, ANAYA No [facility] Mental Status Date Assessment Result Facility 11-17-2017 Because of a physica l, mental, or emotional condition, do you have serious difficulty concentrating, remembering, or making decisions No 11/17/2017 9:59 AM EDT Lizbeth Moctezuma, ANAYA No [facility] Clinical Notes 01-10-2011 to 11-03-2024 Patient InstructionsLena Fleming APRN.[facility] - 11/03/2024 12:00 PM Giovani Morales LPN - 11/03/2024 11:36 AM Benito Iglesias RT(R) - 11/03/2024 10:40 AM EDT Note Date & Type Note Facility 11-03-2024 Instructions Lena Fleming APRN.[employer] - 11/03/2024 12:14 PM EDT We discussed your vitamin D deficiency and related symptoms: - Your vitamin D level from February 2024 was 25.1, which is below the normal range of 31-80. This may contribute to symptoms such as muscle cramps, hair loss, and difficulty sleeping. - I have prescribed vitamin D 50,000 IU to be taken once weekly for six months. This prescription has been sent to your [facility] pharmacy. - You may stop taking your current daily vitamin D supplement (5,000 IU) while on the weekly high-dose prescription. - If you wish to start immediately, you can take three additional 5,000 IU pills per week until your prescription arrives. - After 6-8 weeks on the high-dose vitamin D, please follow up with your manager manufacturing or primary care provider to recheck your levels and determine if you should continue this dose. We discussed your concerns about calcium, magnesium, and B vitamins: - Your calcium levels were normal in your last routine bloodwork from 2020. Calcium is typically included in standard blood panels, so you may ask your manager manufacturing or primary care provider to include it in future labs. - Magnesium and B vitamin levels were not recently checked. You may discuss with your manager manufacturing or primary care provider whether testing for these is appropriate. - Continue taking your current calcium supplement as directed. We discussed your hair loss and eye twitching: - Hair loss may be related to hormonal changes after stopping tamoxifen. This should stabilize over time. - Eye twitching may be linked to poor sleep. Improving sleep quality may help reduce this symptom. We discussed your vertigo: - Your vertigo appears to be motion-triggered and is likely related to inner ear issues, such as displaced crystals. If it worsens or becomes more frequent, consider seeing a vestibular therapist for exercises to manage symptoms. - Regular eye exams are also recommended to rule out vision-related causes. We discussed your recent MRI and breast health: - We are awaiting the results of your recent breast MRI, which will also evaluate the axilla (underarm) area. These results will be available in [place] within 24-48 hours. If there are any concerning findings, I will call you to discuss next steps. - During today s exam, I did not find any concerning lumps or abnormalities. If the MRI is normal, no further action is needed at this time. We discussed weight-bearing exercises for bone health: - Weight-bearing exercises, such as yoga or walking, are beneficial for maintaining bone density. Even one day per week of weight-bearing activity can help. - You mentioned enjoying yoga, which is an excellent choice for weight-bearing exercise. Consider resuming yoga classes when your schedule allows. Follow-Up: - Please follow up with your manager manufacturing or primary care provider to check magnesium, calcium, and other routine labs as needed. - Recheck your vitamin D levels after 6-8 weeks on the high-dose supplement. - If your vertigo worsens or bec, omes more frequent, consider seeing a vestibular therapist. - Continue monitoring your symptoms, and let us know if you experience any new or concerning changes. Thank you for coming in today! documented in this encounter [facility] 11-03-2024 History of Presen t illness Narrative Some elements of all sections of this documentation were copied from my previous note of April 04, 2024 and have been re-examined and updated where appropriate. All elements reflect the current assessment and medical decision making of today, November 03, 2024. ATTENDING PHYSICIAN: Dr. Huma Good IDENTIFICATION: Francia Bermudez is a 54 year old year old woman with T3N0, ER positive, CT positive, Oxh5lhn negative (oncotype dx recurrence score of 14), LOBULAR right breast cancer diagnosed in September 2017. She has a known pathogenic RAD51C mutation. REASON FOR VISIT / CHIEF COMPLAINT: Routine 6 month follow up in coordination with her annual breast mammogram for cancer care (alternating with MRI breast) SURVIVORSHIP VISIT: January 08, 2018 CURRENT SYSTEMIC THERAPY FOR BREAST CANCER: None - completed expected course of therapy in May 2024 (after BCI confirmed 6.7% risk of recurrence regardless of extended therapy) PAST THERAPY FOR BREAST CANCER: Right mastectomy with sentinel node procedure and implant reconstruction (Dr. Lobo / Dr. Villela; 5.6 cm, 0/3 nodes positive) Lupron (initiated in December 2017 with subsequent BSO) Exemestane (December 2017 - June 2021) Zoledronic acid (January 2018 - December 02, 2020; received 6 cycles) Letrozole 2.5 mg daily (July 2021 - March 2022) Tamoxifen 20 mg daily (March 2022 - May 2024, after BCI noted NO benefit with extended therapy, 6.7% risk of distant recurrence regardless) INTERVAL HISTORY: Pt presents today with her and reports that she is feeling reasonably well. In February 2024, labs ordered by her manager manufacturing revealed a vitamin D level of 25.1 ng/mL. She has been taking vitamin D supplements, including Citracal and an additional gel cap of 5,000 IU daily, but there was no additional intervention done for the same. She reports leg cramps, eye twitching, hair loss, and difficulty sleeping. She also notes episodes of vertigo triggered by rapid head movements, which have been ongoing for several years. She recently experienced a sensation of a raised area in the right axilla, which she describes as feeling strange. She is concerned about her calcium levels due to being borderline osteoporotic and is currently taking calcium supplements. She engages in weight-bearing exercises, including walking and yoga, but has not been consistent with her yoga practice recently. She is awaiting results from a recent MRI. She otherwise is without any new concerns or discomforts that would be suggestive of recurrent or metastatic disease. She specifically denies any concerning nausea, vomiting, cough, shortness of breath, localized bone pain, headaches or diplopia. SIGNIFICANT (CANCER) FAMILY MEDICAL HISTORY: Mother with uterine cancer (age 40's) Paternal grandmother with breast cancer (in her 50's) Maternal grandfather with lung cancer Was a referral made to medical genetics? Yes, testing was significant for a pathogenic mutation in RAD51C REVIEW OF SYSTEMS: Eyes: (+) eye twitching, (-) double vision Respiratory: (-) cough, (-) shortness of breath Gastrointestinal: (-) nausea, (-) vomiting Musculoskeletal: (+) leg cramps Skin: (+) hair loss Neurological: (+) motion-triggered vertigo, (-) headaches Psychiatric: (+) insomnia Hematologic/Lymphatic: (+) right axillary swelling PHYSICAL EXAMINATION: Physical exam listed below was completed in it's entirety today, November 03, 2024 and is unchanged from April 04, 2024 except where noted in italics. The sensitive examination was discussed with the Patient or Patient's Authorized Miter Operator. As applicable, any other physician, advance practice provider, medical student, or other health professional student that will be observing or involved in the sensitive examination for educational or training purposes was discussed with the Patient or Authorized Miter Operator. The Patient or Authorized Miter Operator has agreed to proceed with the sensitive examination. Pt was offered a truck service manager, but verbalized that she was comfortable with proceeding with exam without one. BP 119/78 Pulse 93 Temp 36.4 C (97.5 F) (Temporal) Resp 18 Wt 64 kg (141 lb 1.5 oz) LMP 11/05/2017 SpO2 100% BMI 24.69 kg/m ECOG PERFORMANCE STATUS: 0- Fully active, able to carry on all pre-disease performance w/o restriction. General appearance: well appearing, alert, in no acute distress Skin: Skin color, texture, turgor normal, no rashes or lesions Head: unremarkable Neck: Supple, no adenopathy Lungs: lungs clear to auscultation, no wheezing or rhonchi Heart: Negative, RRR Breasts: Right breast exam reveals implant in place, there is no axillary adenopathy, concerning skin changes or palpable lesions. Left breast inspection negative, again there is no axillary adenopathy, concerning skin changes or palpable lesions. Abdomen: Normal abdominal exam, Abdomen soft, non-tender. No masses, organomegaly Extremities:Extremities normal. No deformities or edema. LABS/IMAGING: No labs done at the time of today's exam Left Adrian-mammogram (April 04, 2024): There is no mammographic evidence of malignancy. A 1 year screening mammogram is recommended. 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 PLAN: After evaluation and review of the ongoing treatment plan, the following referral/recommendations have been made. (Z08) Encounter for routine cancer follow-up (primary encounter diagnosis) (Z85.3) History of breast cancer (Z12.31) Encounter for screening mammogram for malignant neoplasm of breast Plan: [facility] - Will be in touch via [employer] with results of MRI and will reach out to pt directly if there are any noted concerns - Recommendations made from today's visit: - vitamin d 50 000 international unit(s) weekly X 6 - 8 weeks with recheck at that time (pt to follow up with BOWLING ALLEY MANAGER for repeat labs) - Encouraged ongoing monthly breast self exams - Regular exercise (greater then 30 minutes most days of the week / 150 minutes weekly), to include weight bearing activity - Encouraged to establish with a primary care provider - There were NO other physical concerns requiring further evaluation at this time - Mammogram next due: May 2025 (alternating with MRI every 6 months, due in November 2025 (doing MRI due to young age of diagnosis, heterogeneously dense breasts, lobular histology and mammographically occult tumor) - Mammogram and follow up with commercial underwriter in 6 months She has been encouraged to call with any additional questions/concerns in the interim. Understanding verbalized. I spent a total of 35 minutes on the date of the service which included preparing to see the patient, [id number] patient care, completing clinical documentation, obtaining and/or reviewing separately obtained history, performing a medically appropriate examination, counseling and educating the patient/family/caregiver, ordering medications, tests, or procedures, and communicating results to the patient/family/caregiver. Lena Fleming CNP Additional intake questions: Has the patient had fever, nausea, vomiting, diarrhea, constipation, fatigue for > 1 week? No Does the patient have a decreased appetite? No Does patient want to see a Insurance Account Manager? No (yes to any of above refer patient to schedulers for dietitian appointment) ) Does patient have any new or increased numbness or tingling of extremities? No Does patient need any prescription refills? No Does patient have an advanced directive in place? No, Patient referred to [facility] documented in this encounter [facility] 11-03-2024 Note HNO ID: [id number] Author: LENA FLEMING APRN.CNP Service: ? Author Type: Nurse Practitioner Type: Progress Notes Filed: 11/03/2024 16:17 Note Text: Some elements of all sections of this documentation were copied from my previous note of April 04, 2024 and have been re-examined and updated where appropriate. All elements reflect the current assessment and medical decision making of today, November 03, 2024. ATTENDING PHYSICIAN: Dr. Huma Good IDENTIFICATION: Francia Bermudez is a 54 year old year old woman with T3N0, ER positive, CT positive, Git9brb negative (oncotype dx recurrence score of 14), LOBULAR right breast cancer diagnosed in September 2017. She has a known pathogenic RAD51C mutation. REASON FOR VISIT / CHIEF COMPLAINT: Routine 6 month follow up in coordination with her annual breast mammogram for cancer care (alternating with MRI breast) SURVIVORSHIP VISIT: January 08, 2018 CURRENT SYSTEMIC THERAPY FOR BREAST CANCER: None - completed expected course of therapy in May 2024 (after BCI confirmed 6.7% risk of recurrence regardless of extended therapy) PAST THERAPY FOR BREAST CANCER: Right mastectomy with sentinel node procedure and implant reconstruction (Dr. Lobo / Dr. Villela; 5.6 cm, 0/3 nodes positive) Lupron (initiated in December 2017 with subsequent BSO) Exemestane (December 2017 - June 2021) Zoledronic acid (January 2018 - December 02, 2020; received 6 cycles) Letrozole 2.5 mg daily (July 2021 - March 2022) Tamoxifen 20 mg daily (March 2022 - May 2024, after BCI noted NO benefit with extended therapy, 6.7% risk of distant recurrence regardless) INTERVAL HISTORY: Pt presents today with her and reports that she is feeling reasonably well. In February 2024, labs ordered by her manager manufacturing revealed a vitamin D level of 25.1 ng/mL. She has been taking vitamin D supplements, including Citracal and an additional gel cap of 5,000 IU daily, but there was no additional intervention done for the same. She reports leg cramps, eye twitching, hair loss, and difficulty sleeping. She also notes episodes of vertigo triggered by rapid head movements, which have been ongoing for several years. She recently experienced a sensation of a raised area in the right axilla, which she describes as feeling strange. She is concerned about her calcium levels due to being borderline osteoporotic and is currently taking calcium supplements. She engages in weight-bearing exercises, including walking and yoga, but has not been consistent with her yoga practice recently. She is awaiting results from a recent MRI. She otherwise is without any new concerns or discomforts that would be suggestive of recurrent or metastatic disease. She specifically denies any concerning nausea, vomiting, cough, shortness of breath, localized bone pain, headaches or diplopia. SIGNIFICANT (CANCER) FAMILY MEDICAL HISTORY: Mother with uterine cancer (age 40's) Paternal grandmother with breast cancer (in her 50's) Maternal grandfather with lung cancer Was a referral made to medical genetics? Yes, testing was significant for a pathogenic mutation in RAD51C REVIEW OF SYSTEMS: Eyes: (+) eye twitching, (-) double vision Respiratory: (-) cough, (-) shortness of breath Gastrointestinal: (-) nausea, (-) vomiting Musculoskeletal: (+) leg cramps Skin: (+) hair loss Neurological: (+) motion-triggered vertigo, (-) headaches Psychiatric: (+) insomnia Hematologic/Lymphatic: (+) right axillary swelling PHYSICAL EXAMINATION: Physical exam listed below was completed in it's entirety today, November 03, 2024 and is unchanged from April 04, 2024 except where noted in italics. The sensitive examination was discussed with the Patient or Patient's Authorized Miter Operator. As applicable, any other physician, advance practice provider, medical student, or other health professional student that will be observing or involved in the sensitive examination for educational or training purposes was discussed with the Patient or Authorized Miter Operator. The Patient or Authorized Miter Operator has agreed to proceed with the sensitive examination. Pt was offered a truck service manager, but verbalized that she was comfortable with proceeding with exam without one. BP 119/78 Pulse 93 Temp 36.4 ?C (97.5 ?F) (Temporal) Resp 18 Wt 64 kg (141 lb 1.5 oz) LMP 11/05/2017 SpO2 100% BMI 24.69 kg/m? ECOG PERFORMANCE STATUS: 0- Fully active, able to carry on all pre-disease performance w/o restriction. General appearance: well appearing, alert, in no acute distress Skin: Skin color, texture, turgor normal, no rashes or lesions Head: unremarkable Neck: Supple, no adenopathy Lungs: lungs clear to auscultation, no wheezing or rhonchi Heart: Negative, RRR Breasts: Right breast exam reveals implant in place, there is no axillary adenopathy, concerning skin changes or palpable lesions. Left breast inspe (more content not included)... [facility] 11-03-2024 Note HNO ID: [id number] Author: GIOVANI COSME LPN Service: ? Author Type: LICENSED NURSE Type: Progress Notes Filed: 11/03/2024 16:17 Note Text: Additional intake questions: Has the patient had fever, nausea, vomiting, diarrhea, constipation, fatigue for > 1 week? No Does the patient have a decreased appetite? No Does patient want to see a Insurance Account Manager? No (yes to any of above refer patient to schedulers for dietitian appointment) ) Does patient have any new or increased numbness or tingling of extremities? No Does patient need any prescription refills? No Does patient have an advanced directive in place? No, Patient referred to [facility] Electronically Signed By: Giovani Cosme LPN [facility] 11-03-2024 History of Presen t illness Narrative Radiology Service Progress Note DATE OF SERVICE: November 03, 2024 TIME: 10:45 AM PATIENT IDENTITY VERIFICATION COMPLETED USING TWO (2) STANDARD IDENTIFIERS: Name and Date of confirmed by patient verbally. FALL SCREENING: Has the patient had 2 falls in the last year or 1 fall with injury or currently using an Ambulatory Assistive Device (Walker, Cane, Wheelchair, Crutches, etc.)? No PATIENT GENDER DATA: Assigned female at . status: : No status: NO. PATIENT RELEVANT IMPLANT DATA REVIEWED: Yes PATIENT PRESENTS WITH AN IMPLANTABLE OR ATTACHED THEATRICAL DRESSER: No ALLERGIES: Reviewed and unchanged CONTRAST ALLERGY: NO. EXAM: MRI - CONTRAST TYPE: GROUP II PERIPHERAL IV DATA: Ambulatory: A peripheral IV was started in the Left antecubital site with a Angio cath: 22 gauge. and A Saline lock was inserted per protocol RADIOLOGY DEPARTMENT: MR; Exam(s) Completed: Chest: Breast. Lavender Administered: No implant eval included. SIGNATURE: RT Thor(R) PATIENT NAME: Francia Bermudez DATE: November 03, 2024 TIME: 10:45 AM documented in this encounter [facility] 11-03-2024 Note HNO ID: [id number] Author: BENITO OLVERA RT(R) Service: Radiology Author Type: Technologist Type: Progress Notes Filed: 11/03/2024 10:46 Note Text: Radiology Service Progress Note DATE OF SERVICE: November 03, 2024 TIME: 10:45 AM PATIENT IDENTITY VERIFICATION COMPLETED USING TWO (2) STANDARD IDENTIFIERS: Name and Date of confirmed by patient verbally. FALL SCREENING: Has the patient had 2 falls in the last year or 1 fall with injury or currently using an Ambulatory Assistive Device (Walker, Cane, Wheelchair, Crutches, etc.)? No PATIENT GENDER DATA: Assigned female at . status: : No status: NO. PATIENT RELEVANT IMPLANT DATA REVIEWED: Yes PATIENT PRESENTS WITH AN IMPLANTABLE OR ATTACHED THEATRICAL DRESSER: No ALLERGIES: Reviewed and unchanged CONTRAST ALLERGY: NO. EXAM: MRI - CONTRAST TYPE: GROUP II PERIPHERAL IV DATA: Ambulatory: A peripheral IV was started in the Left antecubital site with a Angio cath: 22 gauge. and A Saline lock was inserted per protocol RADIOLOGY DEPARTMENT: MR; Exam(s) Completed: Chest: Breast. Lavender Administered: No implant eval included. SIGNATURE: RT Thor(R) PATIENT NAME: Francia Bermudez DATE: November 03, 2024 TIME: 10:45 AM [facility] 10-10-2024 Telephone encounter Note Patient notified of results, verbalized understanding of instructions given. Urvashi Pepper MA [facility] 10-10-2024 Miscellaneous Notes Patient notified of results, verbalized understanding of instructions given. Urvashi Pepper MA Please contact patient let her know urine culture does reveal UTI. She is on the appropriate antibiotic therapy. Continue as prescribed documented in this encounter [facility] 10-10-2024 Telephone encounter Note Please contact patient let her know urine culture does reveal UTI. She is on the appropriate antibiotic therapy. Continue as prescribed [facility] Work Phone: 10-07-2024 Note HNO ID: [id number] Author: RODRI SYED APRN.KEISHA Service: ? Author Type: Nurse Practitioner Type: Progress Notes Filed: 10/07/2024 18:35 Note Text: FRAN Bermudez is a 54 year old female. Patient presents with: Urinary Frequency: Frequency, urgency, odor and cloudy urine x 3 days Presents for 3 day history of urinary urgency, burning and frequency x 3 days. The history is provided by the patient. Review of Systems Genitourinary: Positive for difficulty urinating, dysuria, frequency and urgency. Objective BP 128/82 Pulse 74 Temp 36.6 ?C (97.8 ?F) (Tympanic) Resp 18 Wt 63.4 kg (139 lb 12.4 oz) LMP 11/05/2017 BMI 24.46 kg/m? Physical Exam Abdominal: General: Abdomen is flat. Bowel sounds are normal. Palpations: Abdomen is soft. Tenderness: There is no abdominal tenderness. Neurological: Mental Status: She is alert. {ASSESSMENT/PLAN: 1. Urinary frequency - ICD9: 788.41, ICD10: R35.0 acute - UA positive for lissa esterase and nitrates - Send urine for culture - Begin treatment with Macrobid 100 mg BID for 5 days - Patient education for prevention given - UA DIP, URINE (POC) - BACTERIAL CULTURE, URINE Rodri Syed APRN.PUBLICITY EXPERT History and Record Review Clinical information obtained from an independent historian. History obtained from or confirmed by: friend. Differential Diagnoses - UTI is more likely for the following reason(s): suggested by HANDP and consistent with laboratory studies Disposition The patient was discharged. Procedures [facility] 10-07-2024 History of Presen t illness Narrative [facility] Subjective Francia G Lara is a 54 year old female. Patient presents with: Urinary Frequency: Frequency, urgency, odor and cloudy urine x 3 days Presents for 3 day history of urinary urgency, burning and frequency x 3 days. The history is provided by the patient. Review of Systems Genitourinary: Positive for difficulty urinating, dysuria, frequency and urgency. Objective BP 128/82 Pulse 74 Temp 36.6 C (97.8 F) (Tympanic) Resp 18 Wt 63.4 kg (139 lb 12.4 oz) LMP 11/05/2017 BMI 24.46 kg/m Physical Exam Abdominal: General: Abdomen is flat. Bowel sounds are normal. Palpations: Abdomen is soft. Tenderness: There is no abdominal tenderness. Neurological: Mental Status: She is alert. {ASSESSMENT/PLAN: 1. Urinary frequency - ICD9: 788.41, ICD10: R35.0 acute - UA positive for lissa esterase and nitrates - Send urine for culture - Begin treatment with Macrobid 100 mg BID for 5 days - Patient education for prevention given - UA DIP, URINE (POC) - BACTERIAL CULTURE, URINE Rodri Syed APRN.KEISHA History and Record Review Clinical information obtained from an independent historian. History obtained from or confirmed by: friend. Differential Diagnoses - UTI is more likely for the following reason(s): suggested by H&P and consistent with laboratory studies Disposition The patient was discharged. Procedures documented in this encounter [facility] 08-21-2024 Evaluation note Diagnosis Onset Date Resolution BMI 24.0-24.9, adult acute Miguel 2024 3:24pm Breast cancer acute August 21, 2024 3:24pm High cholesterol acute August 212024 3:24pm Other obesity acute August 21, 2024 3:24pm Sleep apnea acute August 21, 025 3:24pm BMI 27.0-27.9,adult resolved August 21, 2024 3:24pm BMI 24.0-24.9, adult acute November 18, 2024 1:12pm Breast cancer acute November 18, 2024 1:12pm High cholesterol acute November 1:12pm Other obesity acute November 18, 2024 1:12pm Sleep apnea acute November 18 1:12pm BMI 27.0-27.9,adult resolved November 18, 2024 1:12pm [facility] [employer] Work Phone: 1(156) 296-134303-20-2025 Evaluation note* Diagnosis Onset Date Resolution Status Admit Date BMI 24.0-24.9, adult acute Miguel 2024 3:24pm Breast cancer acute August 21, 2024 3:24pm High cholesterol acute August 212024 3:24pm Other obesity acute August 21, 2024 3:24pm Sleep apnea acute August 21, 3:24pm BMI 27.0-27.9,adult resolved August 21, 2024 3:24pm BMI 24.0-24.9, adult acute November 18, 2024 1:12pm Breast cancer acute November 18, 2024 1:12pm High cholesterol acute November 1:12pm Obesity, unspecified acute November 18, 2024 1:12pm Other obesity acute November 18, 2024 1:12pm Sleep apnea acute November 18 1:12pm BMI 27.0-27.9,adult resolved November 18, 2024 1:12pm [facility] [employer] Work Phone: 1(885) 666-904011-01-2024 Telephone encounter Note* Telephone Encounter - Breanna Marmolejo RN - 04/04/2024 4:28 PM EDT Breast Cancer Index ordered via [employer] portal as requested by Dr Huma Good. Order, pathology report and insurance information faxed to [employer]. Breanna Marmolejo RN [facility] Work Phone: 1(755) 427-799911-01-2024 Miscellaneous Notes* Telephone Encounter - Breanna Marmolejo RN - 04/04/2024 4:28 PM EDT Breast Cancer Index ordered via [employer] portal as requested by Dr Huma Good. Order, pathology report and insurance information faxed to [employer]. Breanna Marmolejo RN [facility] Nurse Note* Ina Garcia LPN - 04/04/2024 11:02 AM EDT Additional intake questions: Has the patient had fever, nausea, vomiting, diarrhea, constipation, fatigue for > 1 week? No Does the patient have a decreased appetite? No Does patient want to see a Insurance Account Manager? No (yes to any of above refer patient to schedulers for dietitian appointment) ) Does patient have any new or increased numbness or tingling of extremities? No Is patient interested in fertility information? NA Does patient need any prescription refills? Yes, LIP notified Does patient have an advanced directive in place? Yes, copies are in [facility]11-01-2024 Nurse Note* Ina Garcia LPN - 04/04/2024 11:02 AM EDT Additional intake questions: Has the patient had fever, nausea, vomiting, diarrhea, constipation, fatigue for > 1 week? No Does the patient have a decreased appetite? No Does patient want to see a Insurance Account Manager? No (yes to any of above refer patient to schedulers for dietitian appointment) ) Does patient have any new or increased numbness or tingling of extremities? No Is patient interested in fertility information? NA Does patient need any prescription refills? Yes, LIP notified Does patient have an advanced directive in place? Yes, copies are in [place] documented [facility] History of Present illness Narrative* Lena Fleming APRN.KEISHA - 04/04/2024 11:00 AM EDT Some elements of all sections of this documentation were copied from my previous note of March 30, 2023 and have been re-examined and updated where appropriate. All elements reflect the current assessment and medical decision making of today, April 04, 2024. ATTENDING PHYSICIAN: Dr. Huma Good IDENTIFICATION: Francia Bermudez is a 53 year old year old woman with T3N0, ER positive, CT positive, Udq3zpp negative (oncotype dx recurrence score of 14), LOBULAR right breast cancer diagnosed in September 2017. She has a known pathogenic RAD51C mutation. REASON FOR VISIT / CHIEF COMPLAINT: Routine 6 month follow up in coordination with her annual breast mammogram for cancer care (alternating with MRI breast) SURVIVORSHIP VISIT: January 08, 2018 CURRENT SYSTEMIC THERAPY FOR BREAST CANCER: Tamoxifen 20 mg daily PAST THERAPY FOR BREAST CANCER: Right mastectomy with sentinel node procedure and implant reconstruction (Dr. Lobo / Dr. Villela; 5.6 cm, 0/3 nodes positive) Lupron (initiated in December 2017 with subsequent BSO) Exemestane (December 2017 - June 2021) Zoledronic acid (January 2018 - December 02, 2020; received 6 cycles) Letrozole 2.5 mg daily (July 2021 - March 2022) Tamoxifen 20 mg daily (March 2022 - present) INTERVAL HISTORY: Pt presents today with her . She reports that she is taking her Tamoxifen 20 mg daily as prescribed with minimal difficulty, and confirms annual pelvic exams are being done. Pt does note that her libido and sexual function have been compromised and feels that it is interfering with her relationship with her . Discussed potential etiology of the same being the anti-endocrine therapy but also menopause and discussed a referral to sexual health, which she is open to. No concerns noted, although questions regarding tamoxifen therapy and extension to 10 years did arise. Pt verbalized that she is comfortable with the 10 years if indicated, but also open to discontinuing earlier if not warranted. Discussed availability of BCI testing and felt to be appropriate by Dr. Good as well and will submit the same at this time. She otherwise reports that she physically feels well and is without any new concerns or discomfortsthat would be suggestive of recurrent or metastatic disease. She specifically denies any concerningnausea, vomiting, cough, shortness of breath, localized bone pain, headaches or diplopia. She reports that she is doing regular breast exams and denies any concerns related to the same. Shealso confirms that she does have a primary care provider (Zeny Ricardo MD), which she verifies she is following up with regularly for her routine health maintenance. REVIEW OF SYSTEMS: The remainder of the review of systems is unremarkable. 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 Yes, testing was significant for a pathogenic mutation in RAD51C PHYSICAL EXAMINATION: Physical exam listed below was completed in it's entirety today, April 04, 2024 and is unchanged from March 30, 2023 except where noted in italics. The sensitive examination was discussed with the Patient or Patient's Authorized Miter Operator. Asapplicable, any other physician, advance practice provider, medical student, or other health professional student that will be observing or involved in the sensitive examination for educational or training purposes was discussed with the Patient or Authorized Miter Operator. The Patient or Authorized Miter Operator has agreed to proceed with the sensitive examination. Pt was offered a truck service manager, but verbalized that she was comfortable with proceeding with exam without one. General appearance: well appearing, alert, in no acute distress Skin: Skin color, texture, turgor normal, no rashes or lesions Head: unremarkable Neck: Supple, no adenopathy Lungs: lungs clear to auscultation, no wheezing or rhonchi Heart: Negative, RRR Breasts: Right breast exam reveals implant in place, there is no axillary adenopathy, concerning skin changes or palpable lesions. Left breast inspection negative, again there is no axillary adenopathy, concerning skin changes or palpable lesions. Abdomen: Normal abdominal exam, Abdomen soft, non-tender. No masses, organomegaly Extremities:Extremities normal. No deformities or edema. LABS/IMAGING: No labs done at the time of today's exam Left Adrian-mammogram (April 04, 2024): Results pending at time of document completion, [facility] breast (August 30, 2023) Normal bilateral breast MRI. Return to annual mammogram screening schedule is recommended. 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 PLAN: After evaluation and review of the ongoing treatment plan, the following referral/recommendations have been made. (C50.911, Z17.0) Malignant neoplasm of right breast in female, estrogen receptor positive, unspecified site of breast (HCC) (primary encounter diagnosis) (Z79.810) Long-term current use of tamoxifen (F52.9) Sexual dysfunction in female Plan: CONSULT TO SEXUAL HEALTH-GYNECOLOGY (PHYSICIAN) (Z12.39) Breast cancer screening, high risk patient Plan: MRI BREAST WO/W IVCON BILATERAL - Will be in touch via [facility] with results of mammogram and will reach out to pt directly if thereare any noted concerns - Continue with daily tamoxifen 20 mg daily with intent of completing at 10 years of endocrine therapy (until December 2027), with ongoing routine pelvic exams, although will run BCI test to determine ifextended therapy is appropriate - Recommendations made from today's visit: ~ refer to sexual health for decreased libido ~ as noted, send BCI test for extended therapy discussion - Continue with her PCP for weight loss management - Encouraged ongoing monthly breast self exams - Regular exercise (greater then 30 minutes most days of the week / 150 minutes weekly) - There were NO other physical concerns requiring further evaluation at this time - Mammogram next due: April 2025 (alternating with MRI every 6 months, due in October 2024 (doing MRI due to young age of diagnosis, heterogeneously dense breasts, lobular histology and mammographically occult tumor) - Follow up with PCP for routine health maintenance - MRI breast and follow up with Dr. Good or commercial underwriter in 6 months She has been encouraged to call with any additional questions/concerns in the interim. Understanding verbalized. I spent a total of 35 minutes on the date of the service which included preparing to see the patient, [id number] patient care, obtaining and/or reviewing separately obtained history, performing a medically appropriate examination, counseling and educating the patient/family/caregiver, ordering medications, tests, or procedures, communicating with other HCPs (not separately reported), and communicating results to the patient/family/caregiver. Lena Fleming CNP cc: MD Huma Forbes MD documented in this encounterA[facility] NoteHNO ID: [id number] Author: LENA FLEMING APRN.CNP Service: ? Author Type: Nurse Practitioner Type: Progress Notes Filed: 04/05/2024 08:52 Note Text: Some elements of all sections of this documentation were copied from my previous note of March 30, 2023 and have been re-examined and updated where appropriate. All elements reflect the current assessment and medical decision making of today, April 04, 2024. ATTENDING PHYSICIAN: Dr. Huma Good IDENTIFICATION: Francia Bermudez is a 53 year old year old woman with T3N0, ER positive, CT positive, Xqx9nvi negative (oncotype dx recurrence score of 14), LOBULAR right breast cancer diagnosed in September 2017. She has a known pathogenic RAD51C mutation. REASON FOR VISIT / CHIEF COMPLAINT: Routine 6 month follow up in coordination with her annual breast mammogram for cancer care (alternating with MRI breast) SURVIVORSHIP VISIT: January 08, 2018 CURRENT SYSTEMIC THERAPY FOR BREAST CANCER: Tamoxifen 20 mg daily PAST THERAPY FOR BREAST CANCER: Right mastectomy with sentinel node procedure and implant reconstruction (Dr. Lobo / Dr. Villela; 5.6 cm, 0/3 nodes positive) Lupron (initiated in December 2017 with subsequent BSO) Exemestane (December 2017 - June 2021) Zoledronic acid (January 2018 - December 02, 2020; received 6 cycles) Letrozole 2.5 mg daily (July 2021 - March 2022) Tamoxifen 20 mg daily (March 2022 - present) INTERVAL HISTORY: Pt presents today with her . She reports that she is taking her Tamoxifen 20 mg daily as prescribed with minimal difficulty, and confirms annual pelvic exams are being done. Pt does note that her libido and sexual function have been compromised and feels that it is interfering with her relationship with her . Discussed potential etiology of the same being the anti-endocrine therapy but also menopause and discussed a referral to sexual health, which she is open to. No concerns noted, although questions regarding tamoxifen therapy and extension to 10 years did arise. Pt verbalized that she is comfortable with the 10 years if indicated, but also open to discontinuing earlier if not warranted. Discussed availability of BCI testing and felt to be appropriate by Dr. Good as well and will submit the same at this time. She otherwise reports that she physically feels well and is without any new concerns or discomforts that would be suggestive of recurrent or metastatic disease. She specifically denies any concerning nausea, vomiting, cough, shortness of breath, localized bone pain, headaches or diplopia. She reports that she is doing regular breast exams and denies any concerns related to the same. She also confirms that she does have a primary care provider (Zeny Ricardo MD), which she verifies she is following up with regularly for her routine health maintenance. REVIEW OF SYSTEMS: The remainder of the review of systems is unremarkable. 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 Yes, testing was significant for a pathogenic mutation in RAD51C PHYSICAL EXAMINATION: Physical exam listed below was completed in it's entirety today, April 04, 2024 and is unchanged from March 30, 2023 except where noted in italics. The sensitive examination was discussed with the Patient or Patient's Authorized Miter Operator. As applicable, any other physician, advance practice provider, medical student, or other health professional student that will be observing or involved in the sensitive examination for educational or training purposes was discussed with the Patient or Authorized Miter Operator. The Patient or Authorized Miter Operator has agreed to proceed with the sensitive examination. Pt was offered a truck service manager, but verbalized that she was comfortable with proceeding with exam without one. General appearance: well appearing, alert, in no acute distress Skin: Skin color, texture, turgor normal, no rashes or lesions Head: unremarkable Neck: Supple, no adenopathy Lungs: lungs clear to auscultation, no wheezing or rhonchi Heart: Negative, RRR Breasts: Right breast exam reveals implant in place, there is no axillary adenopathy, concerning skin changes or palpable lesions. Left breast inspection negative, again there is no axillary adenopathy, concerning skin changes or palpable lesions. Abdomen: Normal abdominal exam, Abdomen soft, non-tender. No masses, organomegaly Extrem (more content not included)...[facility]11-01-[facility] History of Present illness Narrative* Gini Yeung RT(R) - 04/04/2024 10:05 AM EDT Radiology Service Progress Note PATIENT NAME: Francia Bermudez DATE OF SERVICE: April 04, 2024 TIME: 10:09 AM PATIENT IDENTITY VERIFICATION COMPLETED USING TWO (2) IDENTIFIERS: Name and Date of confirmedby patient verbally. FALL SCREENING: Has the patient had 2 falls in the last year or 1 fall with injury or currently using an Ambulatory Assistive Device (Walker, Cane, Wheelchair, Crutches, etc.)? No PATIENT GENDER DATA: Female. status: : No status: NO. PATIENT RELEVANT IMPLANT DATA REVIEWED: Not Applicable PATIENT PRESENTS WITH AN IMPLANTABLE OR ATTACHED THEATRICAL DRESSER: No RADIOLOGY DEPARTMENT: Bone Density PERIPHERAL IV DATA: Not applicable SIGNED BY: RT Rachelle(Nikolai) April 04, 2024 10:09 AM documented in this encounterA[facility] NoteHNO ID: [id number] Author: GINI YENUG RT(Nikolai) Service: ? Author Type: Technologist Type: Progress Notes Filed: 04/04/2024 10:09 Note Text: Radiology Service Progress Note PATIENT NAME: Francia Bermudez DATE OF SERVICE: April 04, 2024 TIME: 10:09 AM PATIENT IDENTITY VERIFICATION COMPLETED USING TWO (2) IDENTIFIERS: Name and Date of confirmed by patient verbally. FALL SCREENING: Has the patient had 2 falls in the last year or 1 fall with injury or currently using an Ambulatory Assistive Device (Walker, Cane, Wheelchair, Crutches, etc.)? No PATIENT GENDER DATA: Female. status: : No status: NO. PATIENT RELEVANT IMPLANT DATA REVIEWED: Not Applicable PATIENT PRESENTS WITH AN IMPLANTABLE OR ATTACHED THEATRICAL DRESSER: No RADIOLOGY DEPARTMENT: Bone Density PERIPHERAL IV DATA: Not applicable SIGNED BY: RT Rachelle(Nikolai) April 04, 2024 10:09 [facility]11-01-2024 History of Present illness Narrative* Mara Weber RT(R) - 04/04/2024 9:10 AM EDT Radiology Service Progress Note PATIENT NAME: Francia Bermudez DATE OF SERVICE: April 04, 2024 TIME: 11:00 AM PATIENT IDENTITY VERIFICATION COMPLETED USING TWO (2) IDENTIFIERS: Name and Date of confirmedby patient verbally. FALL SCREENING: Has the patient had 2 falls in the last year or 1 fall with injury or currently using an Ambulatory Assistive Device (Walker, Cane, Wheelchair, Crutches, etc.)? No PATIENT GENDER DATA: Female. status: : No status: NO. PATIENT RELEVANT IMPLANT DATA REVIEWED: Yes PATIENT PRESENTS WITH AN IMPLANTABLE OR ATTACHED THEATRICAL DRESSER: No RADIOLOGY DEPARTMENT: Mammography PERIPHERAL IV DATA: Not applicable SIGNED BY: RT Champ(Nikolai) April 04, 2024 11:00 AM documented in this encounterA[facility]24 NoteHNO ID: [id number] Author: MARA WEBER RT(R) Service: ? Author Type: Process Mechanic Type: Progress Notes Filed: 04/04/2024 11:00 Note Text: Radiology Service Progress Note PATIENT NAME: Francia Bermudez DATE OF SERVICE: April 04, 2024 TIME: 11:00 AM PATIENT IDENTITY VERIFICATION COMPLETED USING TWO (2) IDENTIFIERS: Name and Date of confirmed by patient verbally. FALL SCREENING: Has the patient had 2 falls in the last year or 1 fall with injury or currently using an Ambulatory Assistive Device (Walker, Cane, Wheelchair, Crutches, etc.)? No PATIENT GENDER DATA: Female. status: : No status: NO. PATIENT RELEVANT IMPLANT DATA REVIEWED: Yes PATIENT PRESENTS WITH AN IMPLANTABLE OR ATTACHED THEATRICAL DRESSER: No RADIOLOGY DEPARTMENT: Mammography PERIPHERAL IV DATA: Not applicable SIGNED BY: RT Champ(R) April 04, 2024 11:00 [facility]10-27-2023 History of Present illness Narrative* Lena Fleming APRN.PUBLICITY EXPERT - 03/30/2023 10:09 AM EDT Some elements of all sections of this documentation were copied from my previous note of September 04, 2022 and have been re-examined and updated where appropriate. All elements reflect the current assessment and medical decision making of today, March 30, 2023. ATTENDING PHYSICIAN: Dr. Huma Good IDENTIFICATION: Francia Bermudez is a 52 year old year old woman with T3N0, ER positive, CT positive, Xna7szm negative (oncotype dx recurrence score of 14), LOBULAR right breast cancer diagnosed in September 2017. She has a known pathogenic RAD51C mutation. REASON FOR VISIT / CHIEF COMPLAINT: Routine 6 month follow up in coordination with her annual breast mammogram for cancer care (alternating with MRI breast) SURVIVORSHIP VISIT: January 08, 2018 CURRENT SYSTEMIC THERAPY FOR BREAST CANCER: Tamoxifen 20 mg daily PAST THERAPY FOR BREAST CANCER: Right mastectomy with sentinel node procedure and implant reconstruction (Dr. Lobo / Dr. Villela; 5.6 cm, 0/3 nodes positive) Lupron (initiated in December 2017 with subsequent BSO) Exemestane (December 2017 - June 2021) Zoledronic acid (January 2018 - December 02, 2020; received 6 cycles) Letrozole 2.5 mg daily (July 2021 - March 2022) Tamoxifen 20 mg daily (March 2022 - present) INTERVAL HISTORY: Pt presents today with her . She reports that she is taking her Tamoxifen 20 mg daily as prescribed with minimal difficulty, and confirms annual pelvic exams are being done. Updates / Concerns noted at time of today's visit are as follows: 1) working with her PCP for weight loss and has lost 32 pounds intentionally since September 2022, current weight is 149, she notes with the weight loss, her hot flashes improved and she feels better over all She otherwise reports that she physically feels well and is without any new concerns or discomfortsthat would be suggestive of recurrent or metastatic disease. She specifically denies any concerningnausea, vomiting, cough, shortness of breath, localized bone pain, headaches or diplopia. She reports that she is doing regular breast exams and denies any concerns related to the same. Fili confirms that she does have a primary care provider (Zeny Ricardo MD), which she verifies she is following up with regularly for her routine health maintenance. REVIEW OF SYSTEMS: The remainder of the review of systems is unremarkable. 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 Yes, testing was significant for a pathogenic mutation in RAD51C PHYSICAL EXAMINATION: Physical exam listed below was completed in it's entirety today, March 30, 2023 and is unchanged from September 04, 2022 except where noted in italics. General appearance: well appearing, alert, in no acute distress Skin: Skin color, texture, turgor normal, no rashes or lesions Head: unremarkable Neck: Supple, no adenopathy Lungs: lungs clear to auscultation, no wheezing or rhonchi Heart: Negative, RRR Breasts: Right breast exam reveals implant in place, there is no axillary adenopathy, concerning skin changes or palpable lesions. Left breast inspection negative, again there is no axillary adenopathy, concerning skin changes or palpable lesions. Abdomen: Normal abdominal exam, Abdomen soft, non-tender. No masses, organomegaly Extremities:Extremities normal. No deformities or edema. LABS/IMAGING: No labs done at the time of today's exam Left Adrian-mammogram (March 30, 2023): There is no mammographic evidence of malignancy. A 1 year screening mammogram is recommended. MRI breast (September 04, 2022): IMPRESSION: NEGATIVE RIGHT RECONSTRUCTED BREAST: BI-RADS 1 S/P mastectomy and retropectoral silicone implant reconstruction. Negative, no MRI evidence of malignancy LEFT BREAST: BI-RADS 1 Negative, no MRI evidence of malignancy. 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 PLAN: After evaluation and review of the ongoing treatment plan, the following referral/recommendations have been made. (Z08) Encounter for routine cancer follow-up (primary encounter diagnosis) (Z79.810) Long-term current use of tamoxifen (Z12.39) Breast cancer screening, high risk patient Plan: MRI BREAST WO/W IVCON BILATERAL, MRI 3D POST PROCESSING - Continue with daily tamoxifen 20 mg daily with intent of completing at least 5 years of endocrinetherapy, but potentially up to 7 - 10 years, minimum would be to December 2022), with ongoing routine pelvic exams - Continue with her PCP for weight loss management - Encouraged ongoing monthly breast self exams - Regular exercise (greater then 30 minutes most days of the week / 150 minutes weekly) - There were NO other physical concerns requiring further evaluation at this time - Mammogram next due: March 2024 (alternating with MRI every 6 months, due in September 2023 (doing MRI due to young age of diagnosis, heterogeneously dense breasts, lobular histology and mammographically occult tumor) - Follow up with PCP for routine health maintenance - mammogram and follow up with Dr. Good in 6 months with MRI breast She has been encouraged to call with any additional questions/concerns in the interim. Understanding verbalized. I spent a total of 25 minutes on the date of the service which included preparing to see the patient, [id number] patient care, completing clinical documentation, obtaining and/or reviewing separately obtained history, performing a medically appropriate examination, counseling and educating the patient/family/caregiver, ordering medications, tests, or procedures, and communicating results to the patient/family/caregiver. Lena Fleming CNP cc: MD Huma Forbes MD documented in this encounterA[facility]10-27-[facility] Miscellaneous Notes* Letter - Coordinator, Mammography - 03/30/2023 9:34 AM EDT March 30, 2023 PID: [id number] Francia Bermudez [address] [place] [address] Dear Hakeem Lara, We are pleased to inform you that the results of your recent breast imaging exam on 03/30/2023 are normal. Your mammogram demonstrates that you have dense breast tissue, which could hide abnormalities. Dense breast tissue, in and of itself, is a relatively common condition. Therefore, this information is not provided to cause undue concern; rather, it is to raise your awareness and promote discussion with your health care provider regarding the presence of dense breast tissue in addition to other riskfactors. Early detection of cancer is very important. We also understand recommendations regarding breast cancer screening are controversial. Please discuss with your primary care provider which strategy is best for you and whether a mammogram is right for you. Your imaging studies and report will be kept on [facility] at [facility] as part of your permanent medical record and are available for your continuing care. Thank you for allowing us to help in meeting your health care needs. Sincerely, Dr. Willis Interpreting Radiologist [facility] (Normal over 40) documented in this encounterAultman [facility]10-27-2023 Nurse Note* Phyllis Rdoriguez RN - 03/30/2023 9:32 AM EDT Additional intake questions: Has the patient had fever, nausea, vomiting, diarrhea, constipation, fatigue for > 1 week? No Does the patient have a decreased appetite? No Does patient want to see a Insurance Account Manager? No (yes to any of above refer patient to schedulers for dietitian appointment) ) Does patient have any new or increased numbness or tingling of extremities? No Is patient interested in fertility information? NA Does patient need any prescription refills? No Does patient have an advanced directive in place? Yes, copies are in [facility] Electronically Signed By: Phyllis Rodriguez RN documented in this encounterAultman [facility]10-27-2023 History of Present illness Narrative* Mara Weber RT(R) - 03/30/2023 9:00 AM EDT Radiology Service Progress Note PATIENT NAME: Francia Bermudez DATE OF SERVICE: March 30, 2023 TIME: 8:53 AM PATIENT IDENTITY VERIFICATION COMPLETED USING TWO (2) IDENTIFIERS: Name and Date of confirmedby patient verbally. FALL SCREENING: Has the patient had 2 falls in the last year or 1 fall with injury or currently using an Ambulatory Assistive Device (Walker, Cane, Wheelchair, Crutches, etc.)? No PATIENT GENDER DATA: Female. status: : No status: NO. PATIENT RELEVANT IMPLANT DATA REVIEWED: Yes RADIOLOGY DEPARTMENT: Mammography PERIPHERAL IV DATA: Not applicable SIGNED BY: RT Champ(Nikolai) March 30, 2023 8:53 AM documented in this encounterAultman [facility]04-03-2023 Nurse Note* Brianna Snider RN - 09/04/2022 11:21 AM EDT Additional intake questions: Has the patient had fever, nausea, vomiting, diarrhea, constipation, fatigue for > 1 week? No Does the patient have a decreased appetite? No Does patient want to see a Insurance Account Manager? No (yes to any of above refer patient to schedulers for dietitian appointment) ) Does patient have any new or increased numbness or tingling of extremities? No Is patient interested in fertility information? No Does patient need any prescription refills? No Does patient have an advanced directive in place? Yes, copies are in Epic documented in this encounterA[facility]man [facility]04-03-2023 History of Present illness Narrative* Lena Fleming APRN.KEISHA - 09/04/2022 11:14 AM EDT Some elements of all sections of this documentation were copied from my previous note of July 25, 2021 and have been re-examined and updated where appropriate. All elements reflect the current assessment and medical decision making of today, September 04, 2022. ATTENDING PHYSICIAN: Dr. Huma Good IDENTIFICATION: Francia Bermudez is a 52 year old year old woman with T3N0, ER positive, CT positive, Dxv2lmf negative (oncotype dx recurrence score of 14), LOBULAR right breast cancer diagnosed in September 2017. She has a known pathogenic RAD51C mutation. REASON FOR VISIT / CHIEF COMPLAINT: Routine 6 month follow up in coordination with her annual breast MRI for cancer care SURVIVORSHIP VISIT: January 08, 2018 CURRENT SYSTEMIC THERAPY FOR BREAST CANCER: Tamoxifen 20 mg daily PAST THERAPY FOR BREAST CANCER: Right mastectomy with sentinel node procedure and implant reconstruction (Dr. Lobo / Dr. Villela; 5.6 cm, 0/3 nodes positive) Lupron (initiated in December 2017 with subsequent BSO) Exemestane (December 2017 - June 2021) Zoledronic acid (January 2018 - December 02, 2020; received 6 cycles) Letrozole 2.5 mg daily (July 2021 - March 2022) Tamoxifen 20 mg daily (March 2022 - present) INTERVAL HISTORY: Pt presents today with her . She reports that she is taking her Tamoxifen 20 mg daily as prescribed with improved tolerance over the aromatase inhibitors. Updates / Concerns noted at time of today's visit are as follows: 1) joint pain still exists in knees, hips and ankles but over all improved with the change to tamoxifen and manageable 2) questions / concerns regarding weight loss options, including an oral medication that her BOWLING ALLEY MANAGER has considered initiating, pt unsure of name, however notes that it can sometimes help with depression(may be Wellbutrin and discussed the potential interaction with the same given the CYP-2D6 pathway of both Wellbutrin and tamoxifen, however benefits may outweigh risk and encouraged to discuss concerns with her BOWLING ALLEY MANAGER if indeed it is Wellbutrin) She otherwise reports that she physically feels well and is without any new concerns or discomfortsthat would be suggestive of recurrent or metastatic disease. She specifically denies any concerningnausea, vomiting, cough, shortness of breath, localized bone pain (none other than listed above with arthralgias), headaches or diplopia. She reports that she is doing regular breast exams and denies any concerns related to the same. Shealso confirms that she does have a primary care provider (Zeny Ricardo MD), although she hasn't been following up with him regularly, noting that her BOWLING ALLEY MANAGER manages a lot of health maintenance items. REVIEW OF SYSTEMS: The remainder of the review of systems is unremarkable. 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 Yes, testing was significant for a pathogenic mutation in RAD51C PHYSICAL EXAMINATION: Physical exam listed below was completed in it's entirety today, September 04, 2022 and is unchanged from July 25, 2021 except where noted in italics. General appearance: well appearing, alert, in no acute distress Skin: Skin color, texture, turgor normal, no rashes or lesions Head: unremarkable Neck: Supple, no adenopathy Lungs: lungs clear to auscultation, no wheezing or rhonchi Heart: Negative, RRR Breasts: Right breast exam reveals implant in place, there is no axillary adenopathy, concerning skin changes or palpable lesions. Left breast inspection negative, again there is no axillary adenopathy, concerning skin changes or palpable lesions. Abdomen: Normal abdominal exam, Abdomen soft, non-tender. No masses, organomegaly Extremities:Extremities normal. No deformities or edema. LABS/IMAGING: No labs done at the time of today's exam Left Adrian-mammogram (March 17, 2022): There is no mammographic evidence of malignancy. A 1 year screening mammogram is recommended. MRI breast (September 04, 2022): IMPRESSION: NEGATIVE RIGHT RECONSTRUCTED BREAST: BI-RADS 1 S/P mastectomy and retropectoral silicone implant reconstruction. Negative, no MRI evidence of malignancy LEFT BREAST: BI-RADS 1 Negative, no MRI evidence of malignancy. 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 PLAN: After evaluation and review of the ongoing treatment plan, the following referral/recommendations have been made. (Z08) Encounter for routine cancer follow-up (primary encounter diagnosis) (Z12.31) Encounter for screening mammogram for breast cancer Plan: DALE SCREENING W ADRIAN (C50.911, Z17.0) Malignant neoplasm of right breast in female, estrogen receptor positive, unspecified site of breast (HCC) (Z79.810) Long-term current use of tamoxifen - Continue with daily tamoxifen 20 mg daily with intent of completing at least 5 years of endocrinetherapy, but potentially up to 7 - 10 years, minimum would be to December 2022) - Encouraged discussion with her BOWLING ALLEY MANAGER regarding the potential recommendations for weight loss management medications - Encouraged ongoing monthly breast self exams - Regular exercise (greater then 30 minutes most days of the week / 150 minutes weekly) - There were NO other physical concerns requiring further evaluation at this time - Mammogram next due: March 2024 (alternating with MRI every 6 months, done today, September 04, 2022 (doing MRI due to young age of diagnosis, heterogeneously dense breasts and mammographically occult tumor) - Bone density next due: March 2024 - Follow up with PCP for routine health maintenance - mammogram and follow up with Dr. Good in 6 months She has been encouraged to call with any additional questions/concerns in the interim. Understanding verbalized. I spent a total of 25 minutes on the date of the service which included preparing to see the patient, [id number] patient care, completing clinical documentation, obtaining and/or reviewing separately obtained history, performing a medically appropriate examination, counseling and educating the patient/family/caregiver, ordering medications, tests, or procedures, and communicating results to the patient/family/caregiver. Lena Fleming CNP cc: MD Huma Forbes MD documented in this encounterA[facility]04-03-2023 History of Present illness Narrative* RT Letha(R) - 09/04/2022 9:20 AM EDT Radiology Service Progress Note DATE OF SERVICE: September 04, 2022 TIME: 9:07 AM PATIENT IDENTITY VERIFICATION COMPLETED USING TWO (2) STANDARD IDENTIFIERS: Name and Date of confirmed by patient verbally. FALL SCREENING: Has the patient had 2 falls in the last year or 1 fall with injury or currently using an Ambulatory Assistive Device (Walker, Cane, Wheelchair, Crutches, etc.)? No PATIENT GENDER DATA: Female. status: : No status: NO. PATIENT RELEVANT IMPLANT DATA REVIEWED: Yes ALLERGIES: Reviewed and unchanged CONTRAST ALLERGY: NO. EXAM: MRI - CONTRAST TYPE: GROUP II PERIPHERAL IV DATA: Ambulatory: A peripheral IV was started in the Left antecubital site with a Angio cath: 22 gauge. RADIOLOGY DEPARTMENT: MR; Exam(s) Completed: Chest: Breast SIGNATURE: RT Letha(R) PATIENT NAME: Francia Bermudez DATE: September 04, 2022 TIME: 9:07 AM documented in this encounterAultman [facility]03-02-2023 NotePap Smear Specimen AdequacyMarch 2022 12:59amComment.Satisfactory for evaluation. Endocervical and/or squamous metaplasticcells (endocervical component)are present.[facility] INTERFACED A#[id number] HospitalComment on above:Satisfactory for evaluation. Endocervical and/or squamous metaplasticcells (endocervical component)are present.03-17-2022 Nurse Note* Brianna Wyatt RN - 03/17/2022 9:10 AM EDT Additional intake questions: Has the patient had fever, nausea, vomiting, diarrhea, constipation, fatigue for > 1 week? No Does the patient have a decreased appetite? No Does patient want to see a Insurance Account Manager? No (yes to any of above refer patient to schedulers for dietitian appointment) ) Does patient have any new or increased numbness or tingling of extremities? No Is patient interested in fertility information? No Does patient need any prescription refills? Yes Does patient have an advanced directive in place? 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 She was treated with right mastectomy and sentinel lymph node biopsy. She initiated ovarian ablation (initially leuprolide then BSO) and exemestane in December 2017 with the addition of zoledronic acid January 2018 through December 2020 (6 treatments); exemestanewas changed to letrozole in July 2021 due to side effects CURRENT SYSTEMIC THERAPY FOR BREAST CANCER: Letrozole 2.5 mg PO daily; to change to tamoxifen at this time INTERVAL HISTORY: She is having ongoing difficulty with aromatase inhibitor therapy including a lotof arthralgias, particularly when first getting up and symptoms seem to be worse in the ankles. Shehas also been experiencing some left hip pain and sometimes a popping sensation. She reports that symptoms did not improve with the switch from exemestane to letrozole however she does feel hot flashes may be less. She also reports significant sexual symptoms including loss of libido and vaginal dryness. She had been walking a lot for exercise but is having more difficulty doing that due to the musculoskeletal symptoms. She also notes weight gain and difficulty losing weight. REVIEW OF SYSTEMS: The remainder of the review of systems is unremarkable. PERTINENT PMH/FH/SH: She has a pathogenic mutation in RAD51C and underwent BSO in March 2018; shehas a h/o breast implants, hyperlipidemia and recurrent UTI's. She has a FH of uterine cancer in her mother (age 40's), breast cancer in her paternal grandmother (age 50's) and lung cancer in her maternal grandfather. 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 EXAMINATION: Blood pressure 121/80, pulse 67, temperature 36.6 C (97.8 F), temperature source Oral, resp. rate 16, height 160 cm (5' 3), weight 82.4 kg (181 lb 11.2 oz), last menstrual period 11/22/2017, SpO2 100 %. HEENT examination is unremarkable. No adenopathy is appreciated in the cervical or supraclavicular regions. The heart is regular. Lung examination is clear bilaterally. Examination of the left breastis notable for the presence of an implant with no concerning masses. The right reconstructed breastremains free of evidence of local recurrence. No axillary adenopathy is appreciated. The abdomen issoft and nontender. There is no significant edema of the extremities. DATA: Left mammogram with tomosynthesis today was negative (heterogeneously dense). Bone density study 06/01/20 demonstrated improvement (lowest T-score -0.9) IMPRESSION: Stage IB [id number] right breast cancer, s/p right mastectomy and sentinel lymphnode biopsy with ongoing endocrine therapy and s/p 3 years of adjuvant zoledronic acid; clinically free of signs and symptoms of recurrent disease; difficulty tolerating aromatase inhibitor therapy. PLAN: We discussed consideration of changing from letrozole to tamoxifen which should hopefully be more tolerable in terms of the musculoskeletal and sexual symptoms. Risks, benefits, alternatives were discussed with patient who consents to proceed. I have also recommended consultation with Dr. Red regarding sexual health and she is agreeable to that. She is scheduled for a bone density study later today and we will plan to be in touch with that result when available. We will schedule follow-up with eLna Fleming CNP in about 6 months with her annual MRI (MRI due to young age of diagnosis, heterogeneously dense breasts and mammographically occult tumor). I will plan to see her back next year with her mammogram. She is encouraged to call with additional questions or concerns in the interim. I spent a total of about 40 minutes on the date of the service which included preparing to see the patient, [id number] patient care, completing clinical documentation, performing a medically appropriate examination, counseling and educating the patient/family/caregiver, ordering medications, tests, or procedures, and communicating results to the patient/family/caregiver. Huma Good MD documented in this encounterAultman [facility]06-01-2022 History of Present illness Narrative* Ken Wolf NORMAN.PUBLICITY EXPERT - 11/02/2021 3:36 PM EDT Subjective HPI Nontoxic-appearing female presents urgent care chief complaint possible sinus infection. Duration of symptoms 8 days. Associated symptoms sinus pressure drainage transient cough. States cough is mostpresent at night and improves throughout the day. Describes this as a postnasal drip induced cough.States she has been around coworkers who are sick as well. Denies any OTC medication use today. Denies any significant pain. States sinus pressure does increase if she leans forward. Denies any fevers nausea vomiting abdominal pain productive cough chest pain shortness of breath or change in bowel or bladder habits. Past medical history prescription medication use allergies reviewed. .Patient presents with: Nasal Congestion: sinus, cough, loss of voice, BELLE x 7 days PAST MEDICAL HISTORY Diagnosis Date Hyperlipidemia Insomnia Malignant neoplasm of upper-inner quadrant of right breast in female, estrogen receptor positive (HCC) 10/2017 PAST SURGICAL HISTORY Procedure Laterality Date HYSTEROSCOPY, DIAGNOSTIC (SEPARATE Hysteroscopy/D&C LIGATE FALLOPIAN TUBE 2012 filshie clips NOVASURE 01/17 OVARY SURGERY HX PAST SURGICAL HISTORY OF 1993, 2003 bilateral breast implants, revision ALLERGIES Phenergan [Promethazine] MEDICATIONS letrozole (FEMARA) 2.5 mg tablet Take 1 tablet by mouth once daily. FAMILY HISTORY Problem Relation Age of Onset Thyroid Mother Hyperthyroidism Arthritis Mother other (uterine) Mother uterine cancer Heart Maternal Grandmother unsure of type of problem Cancer Maternal Grandfather lung Cancer Paternal Grandmother unsure type - poss. breast None Son None Son No Known Problems Father Headache Sister migraine; DUB Headache Sister migraine; DUB Social History Tobacco Use Smoking status: Never Smoker Smokeless tobacco: Never Used Vaping Use Vaping Use: Never used Substance Use Topics Alcohol use: Yes Comment: Occasionally: 2 times per week Drug use: No BP 128/82 Pulse 100 Temp 36.8 C (98.3 F) Resp 21 Wt 80.6 kg (177 lb 12.8 oz) LMP 11/22/2017 SpO2 99% BMI 29.77 kg/m Review of Systems Constitutional: Negative for chills, fever and malaise/fatigue. HENT: Positive for congestion, sinus pain and sore throat. Negative for ear discharge and ear pain. Eyes: Negative for blurred vision, pain, discharge and redness. Respiratory: Positive for cough. Negative for hemoptysis, sputum production, shortness of breath, wheezing and stridor. Cardiovascular: Negative for chest pain. Gastrointestinal: Negative for abdominal pain, diarrhea, nausea and vomiting. Musculoskeletal: Negative for myalgias. Skin: Negative for itching and rash. Neurological: Negative for dizziness and headaches. Objective Physical Exam Vitals and nursing note reviewed. Constitutional: General: She is not in acute distress. Appearance: She is not diaphoretic. HENT: Head: Normocephalic and atraumatic. Jaw: No trismus, tenderness, swelling or pain on movement. Right Ear: Hearing, tympanic membrane, ear canal and external ear normal. No decreased hearing noted. No drainage, swelling or tenderness. No mastoid tenderness. Tympanic membrane is not perforated, erythematous or bulging. Left Ear: Hearing, tympanic membrane, ear canal and external ear normal. No decreased hearing noted. No drainage, swelling or tenderness. No mastoid tenderness. Tympanic membrane is not perforated, erythematous or bulging. Nose: Congestion present. Right Sinus: Maxillary sinus tenderness present. Left Sinus: Maxillary sinus tenderness present. Mouth/Throat: Lips: [place]. Mouth: Mucous membranes are moist. Pharynx: Oropharynx is clear. Uvula midline. No pharyngeal swelling, oropharyngeal exudate, posterior oropharyngeal erythema or uvula swelling. Eyes: General: Right eye: No discharge. Left eye: No discharge. Conjunctiva/sclera: Conjunctivae normal. Pupils: Pupils are equal, round, and reactive to light. Cardiovascular: Rate and Rhythm: Normal rate and regular rhythm. Heart sounds: Normal heart sounds. Pulmonary: Effort: Pulmonary effort is normal. No tachypnea, accessory muscle usage or respiratory distress. Breath sounds: Normal breath sounds. No stridor. No wheezing, rhonchi or rales. Abdominal: Palpations: Abdomen is soft. Tenderness: There is no abdominal tenderness. Musculoskeletal: General: No tenderness. Normal range of motion. Cervical back: Normal range of motion and neck supple. No rigidity or tenderness. Lymphadenopathy: Head: Right side of head: No submental, submandibular, tonsillar, preauricular, posterior auricular or occipital adenopathy. Left side of head: No submental, submandibular, tonsillar, preauricular, posterior auricular or occipital adenopathy. Cervical: No cervical adenopathy. Right cervical: No superficial or posterior cervical adenopathy. Left cervical: No superficial or posterior cervical adenopathy. Skin: General: Skin is warm and dry. Findings: No rash. Neurological: Mental Status: She is alert and oriented to person, place, and time. ASSESSMENT/PLAN: 1. Bacterial sinusitis - ICD9: 473.9, 041.9, ICD10: J32.9, B96.89 Patient diagnosed with bacterial sinusitis. Will be started on Augmentin today. Patient was educated on supportive therapies. Patient will follow up with primary care provider as needed. Patient was instructed to immediately proceed to emergency room for any new, worsening, or symptoms lasting longer than anticipated. The patient's clinical presentation is otherwise unremarkable at this time. Based on exam and clinical finding, the patient is stable for discharge. Plan of care was discussed with patient. Patient verbalizes understanding and agrees to plan of care. This note was generated using Skilljar software. It may contain errors in wording, punctuation, or spelling. Ken Wolf APRN.PUBLICITY EXPERT documented in this encounterA[facility]03-30-[facility] Instructions* Patient Instructions* Ralph Herrera V, DO - 08/31/2021 4:13 PM EDT Thank you for choosing the [facility] for your acute care needs. [facility] treats minor infections, rashes and injuries. It is our mission for our patients to be healthy. A primary care relationship with the physician allows for continuity of care, counseling, and maintenance of preventive health care needs. Express [facility] does not replace the relationship or need for a primary care physician. For information about establishing with a primary care physician or booking an appointment, please call [phone] or speak with any Patient Amphibian Crewmember. Hours: Sunday through Sunday 7:30 am to 7:00 pm. Sunday and Sunday: 8:00 am to 2:30 pm. documented in this encounterAultman [facility]03-30-2022 History of Present illness Narrative* Ralph Herrera V, DO - 08/31/2021 4:08 PM EDT Francia Bermudez presents with pain in the right foot. Associated symptoms are, increased pain with walking and standing. Symptoms began 10 months ago and since then have been present daily. The pain is rated as 5 on a scale of 1-10 walking and standing. Symptoms are not a result of an injury. She did increase her daily walking routine and was walking approximately 5 miles per day doing well untilthe pain started she has had to back down. PAST MEDICAL HISTORY Diagnosis Date Hyperlipidemia Insomnia Malignant neoplasm of upper-inner quadrant of right breast in female, estrogen receptor positive (HCC) 10/2017 PAST SURGICAL HISTORY Procedure Laterality Date HYSTEROSCOPY, DIAGNOSTIC (SEPARATE Hysteroscopy/D&C LIGATE FALLOPIAN TUBE 2012 filshie clips NOVASURE 01/17 OVARY SURGERY HX PAST SURGICAL HISTORY OF 1993, 2003 bilateral breast implants, revision Current Outpatient Medications on File Prior to Visit Medication Sig letrozole (FEMARA) 2.5 mg tablet Take 1 tablet by mouth once daily. No current facility-administered medications on file prior to visit. Physical Exam Findings: General exam: Normal, Extremeties right foot shows no significant redness swelling or warmth. There is accentuated pronation of the foot with standing. There is tenderness with palpation along the lateral aspect of the foot on the plantar surface. No significant pain over the calcaneal insertion of the plantar fascia with direct palpation. No focal sensory neural deficits. x-ray: mild degenerative changes at the 1st metatarsophalangeal joint. Mild narrowing of the interphalangeal joints of the RIGHT foot is also noted. Plantar calcaneal spur. No radiopaque foreign body. LEFT foot hallux valgus deformity. Assessment: Right foot pain, Degenerative changes of the metatarsophalangeal joint Hallux valgus left great toe Plan: 1. Patient Instructions: Discussed stretching routine, foot strengthening exercises 2. Recommend Spenco full-length orthotic insole custom molded with proper footwear Also discussed dietary modifications to reduce inflammatory response Ralph Herrera DO * Toshia Gann Ma - 08/31/2021 3:29 PM EDT AMB ROOMING INTAKE FLOWSHEET DATA Risk Screening Do you have concerns about personal safety or safety in the home?: No Pain Pain Level: 5 Pain Location: Foot-Right Description: Shooting, Aching, Other: See comment (swollen) Duration Amount of Time: 1 Duration Units: Years Frequency: Continuous Intervention/Comfort measure: Other: See comment (none) documented in this encounterAultman [facility]06-25-2021 History of Present illness Narrative* Katheryn Moran RT(R) - 11/26/2020 9:20 AM EDT Radiology Service Progress Note PATIENT NAME: Francia Bermudez DATE OF SERVICE: November 26, 2020 TIME: 9:28 AM PATIENT IDENTITY VERIFICATION COMPLETED USING TWO (2) IDENTIFIERS: Name and Date of confirmedby patient verbally. FALL SCREENING: Has the patient had 2 falls in the last year or 1 fall with injury or currently using an Ambulatory Assistive Device (Walker, Cane, Wheelchair, Crutches, etc.)? No PATIENT GENDER DATA: Female. status: : No status: NO. PATIENT RELEVANT IMPLANT DATA REVIEWED: Not Applicable RADIOLOGY DEPARTMENT: General X-ray: Exam(s) Completed: Lower Extremity X- Ray(s): Foot, Right and Wt. Bearing PERIPHERAL IV DATA: Not applicable SIGNED BY: RT Kvng(R) November 26, 2020 9:28 AM documented in this encounterAultman [facility]08-09-2011 History of Past illness Narrative* Problem Noted Date Resolved Date Routine general medical exam ination at a health care facility 01/10/2011 03/25/2012 Overview: 02/2010 -- yearly check with Cristopher Arevalo (PUBLICITY EXPERT) 01/10/2011, establish care from Dr. Herrera documented as of this encounter (statuses as of 08/31/2021) [facility] History of Past illness Narrative* Problem Noted Date Resolved Date Routine general medical exam ination at a health care facility 01/10/2011 03/25/2012 Overview: 02/2010 -- yearly check with Cristopher Arevalo (KEISHA) 01/10/2011, establish care from Dr. Herrera documented as of this encounter (statuses as of 10/17/2021) [facility] of Past illness Narrative* Problem Noted Date Resolved Date Routine general medical exam ination at a health care facility 01/10/2011 03/25/2012 Overview: 02/2010 -- yearly check with Cristopher Arevalo (KEISHA) 01/10/2011, establish care from Dr. Herrera documented as of this encounter (statuses as of 11/02/2021) [facility] of Past illness Narrative* Problem Noted Date Resolved Date Routine general medical exam ination at a health care facility 01/10/2011 03/25/2012 Overview: 02/2010 -- yearly check with Cristopher Arevalo (KEISHA) 01/10/2011, establish care from Dr. Herrera documented as of this encounter (statuses as of 03/13/2022) [facility] of Past illness Narrative* Problem Noted Date Resolved Date Routine general medical exam ination at a health care facility 01/10/2011 03/25/2012 Overview: 02/2010 -- yearly check with Cristopher Arevalo (KEISHA) 01/10/2011, establish care from Dr. Herrera documented as of this encounter (statuses as of 03/17/2022) [facility] of Past illness Narrative* Problem Noted Date Resolved Date Routine general medical exam ination at a health care facility 01/10/2011 03/25/2012 Overview: 02/2010 -- yearly check with Cristopher Arevalo (KEISHA) 01/10/2011, establish care from Dr. Herrera documented as of this encounter (statuses as of 09/04/2022) [facility] of Past illness Narrative* Problem Noted Date Resolved Date Routine general medical exam ination at a health care facility 01/10/2011 03/25/2012 Overview: 02/2010 -- yearly check with Cristopher Arevalo (KEISHA) 01/10/2011, establish care from Dr. Herrera documented as of this encounter (statuses as of 09/05/2022) [facility] of Past illness Narrative* Problem Noted Date Resolved Date Routine general medical exam ination at a health care facility 01/10/2011 03/25/2012 Overview: 02/2010 -- yearly check with Cristopher Arevalo (KEISHA) 01/10/2011, establish care from Dr. Herrera documented as of this encounter (statuses as of 09/25/2022) [facility] of [facility] illness Narrative* Problem Noted Date Diagnosed Date Resolved Date Routine general medical exam ination at a health care facility 01/10/2011 03/25/2012 Overview: 02/2010 -- yearly check with Cristopher Arevalo (KEISHA) 01/10/2011, establish care from Dr. Herrera documented as of this encounter (statuses as of 02/28/2023) [facility] of Past illness Narrative* Problem Noted Date Diagnosed Date Resolved Date Routine general medical exam ination at a health care facility 01/10/2011 03/25/2012 Overview: 02/2010 -- yearly check with Cristopher Arevalo (KESIHA) 01/10/2011, establish care from Dr. Herrera documented as of this encounter (statuses as of 03/14/2023) [facility] of Past illness Narrative* Problem Noted Date Diagnosed Date Resolved Date Routine general medical exam ination at a health care facility 01/10/2011 03/25/2012 Overview: 02/2010 -- yearly check with Cristopher Arevalo (KEISHA) 01/10/2011, establish care from Dr. Herrera documented as of this encounter (statuses as of 03/31/2023) [facility] of [facility] illness Narrative* Problem Noted Date Diagnosed Date Resolved Date Routine general medical exam ination at a health care facility 01/10/2011 03/25/2012 Overview: 02/2010 -- yearly check with Cristopher Arevalo (KEISHA) 01/10/2011, establish care from Dr. Herrera documented as of this encounter (statuses as of 03/31/2023) [facility] of [facility] illness Narrative* Problem Noted Date Diagnosed Date Resolved Date Routine general medical exam ination at a health care facility 01/10/2011 03/25/2012 Overview: 02/2010 -- yearly check with Cristopher Arevalo (KEISHA) 01/10/2011, establish care from Dr. Herrera documented as of this encounter (statuses as of 04/03/2023) [facility] [place] [facility]* Diagnosis Foot pain, right- Primary Pain in limb Hallux valgus (acquired), left foot documented in this encounter [facility] [place] [facility]* Diagnosis Bacterial sinusitis- Primary Unspecified sinusitis (chronic) documented in this encounter [facility] [place] [facility]* Diagnosis Aromatase inhibitor use- Primary Use of aromatase inhibitors documented in this encounter [facility] [place] [facility]* Diagnosis Malignant neoplasm of right breast in female, estrogen receptor positive, unspecified site of breast (HCC)- Primary documented in this encounter [facility] [place] [facility]* Diagnosis Onset Date Resolution Status Genetic defect acute [facility] Work Phone: Evaluation note* Diagnosis Encounter for routine cancer follow-up- Primary Other follow-up examination Encounter for screening mammogram for breast cancer Malignant neoplasm of right breast in female, estrogen receptor positive, unspecified site of breast (HCC) Long-term current use of tamoxifen documented in this encounter [facility] [place] [facility]* Diagnosis Malignant neoplasm of right breast in female, estrogen receptor positive, unspecified site of breast (HCC) documented in this encounter [facility] [place] [facility]* Diagnosis Onset Date Resolution Status BMI 32.0-32.9,adult acute Breast cancer acute Decreased libido acute High cholesterol acute Other obesity acute Sleep apnea acute [facility] Work Phone: Evaluation note* Diagnosis Encounter for screening mammogram for breast cancer documented in this encounter [facility] [place] [facility]* Diagnosis Encounter for routine cancer follow-up- Primary Other follow-up examination Long-term current use of tamoxifen Breast cancer screening, high risk patient Screening mammogram for high-risk patient documented in this encounter [facility] [place] [facility]* Diagnosis Foot pain, right Pain in limb documented in this encounter [facility] [place] [facility]* Diagnosis Aromatase inhibitor use Use of aromatase inhibitors documented in this encounter [facility] [place] [facility]* Diagnosis Encounter for screening mammogram for high-risk patient documented in this encounter [facility] [place] [facility]* Diagnosis Malignant neoplasm of right breast in female, estrogen receptor positive, unspecified site of breast (HCC)- Primary Long-term current use of tamoxifen Sexual dysfunction in female Breast cancer screening, high risk patient Screening mammogram for high-risk patient documented in this encounter [facility] [place] [facility]* Diagnosis Malignant neoplasm of upper-inner quadrant of right breast in female, estrogen receptor positive (HCC)- Primary documented in this encounter [facility] [place] [facility]* Diagnosis Urinary frequency- Primary Urinary tract infection without hematuria, site unspecified documented in this encounter [facility] [place] [facility]* Diagnosis Encounter for routine cancer follow-up- Primary Other follow-up examination History of breast cancer Personal history of malignant neoplasm of breast Encounter for screening mammogram for malignant neoplasm of breast Other screening mammogram documented in this encounter [facility] note* Diagnosis Breast cancer screening, high risk patient Screening mammogram for high-risk patient documented in this encounter [facility] (narrative)* Diagnostic Procedure Only (Routine) - Authorized Specialty Diagnoses / Procedures Referred By León kelley Referred To Contact BR IMAG[facility] Diagnoses Encounter for screening mammogram for breast cancer Procedures DALE SCREENING W ADRIAN SCREENING DIGITAL BREAST TOMOSYNTHESIS BI SCREENING MAMMOGRAPHY BI 2-VIEW BREAST INC Lena Hoffmann APRN.CNP [address] [place] [address] [facility] [address] [place] [address] Referral ID Status Reason Start Date Expiration Date Visits Requested Visits Authorized [id number] Authorized Auto-Generat ed Referral 03/06/2023 10/04/2023 1 1 [facility] Diagnostic Procedure Only (Routine) - Closed Specialty Diagnoses / Procedures Referred By León kelley Referred To Contact BR [facility]AG[facility] Diagnoses Encounter for screening mammogram for breast cancer Procedures DALE SCREENING W ADRIAN SCREENING DIGITAL BREAST TOMOSYNTHESIS BI SCREENING MAMMOGRAPHY BI 2-VIEW BREAST INC Lena Hoffmann NORMAN.KEISHA [address] [place] [address] [facility] [address] [facility] [place] [address] Referral ID Status Reason Start Date Expiration Date V isits Requested Visits Authorized [id number] Closed Auto-Generate d Referral 03/06/2023 10/04/2023 1 1 [facility] for referral (narrative)* Diagnostic Procedure Only (Routine) - Closed Specialty Diagnoses / Procedures Referred By Contac t Referred To Contact XR IMAGING Diagnoses Aromatase inhibitor use Procedures [place] [address] [place] [id number] [place] [address] Referral ID Status Reason Start Date Expiration Date V isits Requested Visits Authorized [id number] Closed Auto-Generate d Referral 03/31/2024 09/28/2024 1 1 [facility] for referral (narrative)No reason for referral information availableMajor Hospital Services Work Phone: Reason for visit Narrative* Diagnostic Procedure Only (Routine) - Closed Specialty Diagnoses / Procedures Referred By Contac t Referred To Contact XR IMAGING Diagnoses Aromatase inhibitor use Procedures [place] [address] [place] [address] [place] [address] Referral ID Status Reason Start Date Expiration Date V isits Requested Visits Authorized [id number] Closed Auto-Generate d Referral 03/31/2024 09/28/2024 1 1 [facility] Advance Directives No Advanced Directives Records FoundDocuments on File Type Date Recorded 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 Advance Directive(s) 11/05/2018 2:58 PM Advance Directive(s) 03/11/2018 11:21 AM Advance Directive(s) 11/01/2017 2:09 PM Advance Directive(s) 11/01/2017 4:00 PM Advance Directive(s) 01/11/2016 9:39 AM Documents on File Type Date Recorded 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 Advance Directive(s) 11/01/2017 4:00 PM Documents on File Type Date Recorded 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 Advance Directive(s) 11/01/2017 4:00 PM Reason for Referral Specialty Diagnoses / Procedures [facility] To Contact MR IM[facility] Diagnoses Malignant neoplasm of right breast in female, estrogen receptor positive, unspecified site of breast (HCC) Procedures MRI BREAST WO/W IVCON BILAT MRI BREAST WITHOUT&WITH CONTRAST W/[place] [address] [place] [address] [facility] Referral ID Status Reason Start Date Expiration Date Visits Requested Visits Authorized [id number] Pending Review Auto-Generat ed Referral 09/15/2022 04/16/2023 1 1 Referral ID Status Reason Start Date Expiration Date V isits Requested Visits Authorized [id number] Closed Auto-Generate d Referral 09/15/2022 04/16/2023 1 1 Specialty Diagnoses / Procedures [facility] Referred To Contact MR IMAGING Diagnoses Breast cancer screening, high risk patient Procedures MRI 3D POST PROCESSING 3D RENDERING W/INTERP&POSTPROC DIFF WORK STATION Lena Fleming, NORMAN.PUBLICITY EXPERT [address] [place], [place] [id number] Mr [id number] Referral ID Status Reason Start Date Expiration Date Visits Requested Visits Authorized [id number] Pending Review Auto-Generat ed Referral 04/28/2024 1 1 Specialty Diagnoses / Procedures [facility] Referred To Contact MR [facility] Diagnoses Breast cancer screening, high risk patient Procedures MRI BREAST WO/W IVCON BILATERAL MRI BREAST WITHOUT&WITH CONTRAST W/CAD BILATERAL Lena Fleming, NORMAN.PUBLICITY EXPERT [address] [place] [address] Mr [id number] Referral ID Status Reason Start Date Expiration Date Visits Requested Visits Authorized [id number] Pending Review Auto-Generat ed Referral 08/29/2023 04/28/2024 1 1 Referral ID Status Reason Start Date Expiration Date Visits Requested Visits Authorized [id number] New Request Auto-Generat ed Referral 10/02/2024 05/04/2025 1 1 Chief Complaint and Reason for Visit 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 Reason for Visit Genetic defect 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 Weight Management Consult HYPERCHOLESTEROLEMIA HIGH CHOLESTEROL Reason for Visit BMI 32.0-32.9,adult Breast cancer Decreased libido High cholesterol Other obesity Sleep apnea Chief Complaint Admit Date 3 M FU August 21, 2024 3:2 4pm 3 M FU November 18, 2024 1:12 pm Reason for Visit Admit Date BMI 24.0-24.9, adult August 21, 2024 3: 24pm Breast cancer August 21, 2024 3:2 4pm High cholesterol August 21, 2024 3:2 4pm Other obesity August 21, 2024 3:2 4pm Sleep apnea August 21, 2024 3:2 4pm BMI 27.0-27.9,adult August 21, 2024 3:2 4pm BMI 24.0-24.9, adult November 18, 2024 1:1 2pm Breast cancer November 18, 2024 1:12 pm High cholesterol November 18, 2024 1:12 pm Other obesity November 18, 2024 1:12 pm Sleep apnea November 18, 2024 1:12 pm BMI 27.0-27.9,adult November 18, 2024 1:12 pm Chief Complaint Admit Date 3 M FU August 21, 2024 3:2 4pm 3 M FU November 18, 2024 1:12 pm 1 M med check December 18, 2024 8:57 am Reason for Visit Admit Date BMI 24.0-24.9, adult August 21, 2024 3: 24pm Breast cancer August 21, 2024 3:2 4pm High cholesterol August 21, 2024 3:2 4pm Other obesity August 21, 2024 3:2 4pm Sleep apnea August 21, 2024 3:2 4pm BMI 27.0-27.9,adult August 21, 2024 3:2 4pm BMI 24.0-24.9, adult November 18, 2024 1:1 2pm Breast cancer November 18, 2024 1:12 pm High cholesterol November 18, 2024 1:12 pm Obesity, unspecified November 18, 2024 1:1 2pm Other obesity November 18, 2024 1:12 pm Sleep apnea November 18, 2024 1:12 pm BMI 27.0-27.9,adult November 18, 2024 1:12 pm Summary Purpose Family History No Family History Records Found Additional Source Comments Source Comments (unrecognize d section and content) In the event this informatio n is protected by the Federal Confidentiality of Alcohol and Drug Abuse Patient Records regulations: The Federal rules restrict any use of the information to criminally investigate or prosecute any alcohol or drug abuse patient.[facility] the event this information is protected by the Federal Confidentiality of Alcohol and Drug Abuse Patient Records regulations: The Federal rules restrict any use of the information to criminally investigate or prosecute any alcohol or drug abuse patient.[facility] Hospital[facility] the event this information is protected by the Federal Confidentiality of Alcohol and Drug Abuse Patient Records regulations: The Federal rules restrict any use of the information to criminally investigate or prosecute any alcohol or drug abuse patient.[facility] HospitalIn the event this information is protected by the Federal Confidentiality of Alcohol and Drug Abuse Patient Records regulations: The Federal rules restrict any use of the information to criminally investigate or prosecute any alcohol or drug abuse patient.[facility] the event this information is protected by the Federal Confidentiality of Alcohol and Drug Abuse Patient Records regulations: The Federal rules restrict any use of the information to criminally investigate or prosecute any alcohol or drug abuse patient.[facility] the event this information is protected by the Federal Confidentiality of Alcohol and Drug Abuse Patient Records regulations: The Federal rules restrict any use of the information to criminally investigate or prosecute any alcohol or drug abuse patient.[facility]In the event this information is protected by the Federal Confidentiality of Alcohol and Drug Abuse Patient Records regulations: The Federal rules restrict any use of the information to criminally investigate or prosecute any alcohol or drug abuse patient.[facility]In the event this information is protected by the Federal Confidentiality of Alcohol and Drug Abuse Patient Records regulations: The Federal rules restrict any use of the information to criminally investigate or prosecute any alcohol or drug abuse patient.[facility]In the event this information is protected by the Federal Confidentiality of Alcohol and Drug Abuse Patient Records regulations: The Federal rules restrict any use of the information to criminally investigate or prosecute any alcohol or drug abuse patient.[facility]In the event this information is protected by the Federal Confidentiality of Alcohol and Drug Abuse Patient Records regulations: The Federal rules restrict any use of the information to criminally investigate or prosecute any alcohol or drug abuse patient.[facility] HospitalIn the event this information is protected by the Federal Confidentiality of Alcohol and Drug Abuse Patient Records regulations: The Federal rules restrict any use of the information to criminally investigate or prosecute any alcohol or drug abuse patient.[facility]In the event this information is protected by the Federal Confidentiality of Alcohol and Drug Abuse Patient Records regulations: The Federal rules restrict any use of the information to criminally investigate or prosecute any alcohol or drug abuse patient.[facility]In the event this information is protected by the Federal Confidentiality of Alcohol and Drug Abuse Patient Records regulations: The Federal rules restrict any use of the information to criminally investigate or prosecute any alcohol or drug abuse patient.[facility]In the event this information is protected by the Federal Confidentiality of Alcohol and Drug Abuse Patient Records regulations: The Federal rules restrict any use of the information to criminally investigate or prosecute any alcohol or drug abuse patient.[facility]In the event this information is protected by the Federal Confidentiality of Alcohol and Drug Abuse Patient Records regulations: The Federal rules restrict any use of the information to criminally investigate or prosecute any alcohol or drug abuse patient.[facility]In the event this information is protected by the Federal Confidentiality of Alcohol and Drug Abuse Patient Records regulations: The Federal rules restrict any use of the information to criminally investigate or prosecute any alcohol or drug abuse patient.[facility]In the event this information is protected by the Federal Confidentiality of Alcohol and Drug Abuse Patient Records regulations: The Federal rules restrict any use of the information to criminally investigate or prosecute any alcohol or drug abuse patient.[facility] HospitalIn the event this information is protected by the Federal Confidentiality of Alcohol and Drug Abuse Patient Records regulations: The Federal rules restrict any use of the information to criminally investigate or prosecute any alcohol or drug abuse patient.[facility]In the event this information is protected by the Federal Confidentiality of Alcohol and Drug Abuse Patient Records regulations: The Federal rules restrict any use of the information to criminally investigate or prosecute any alcohol or drug abuse patient.[facility] HospitalIn the event this information is protected by the Federal Confidentiality of Alcohol and Drug Abuse Patient Records regulations: The Federal rules restrict any use of the information to criminally investigate or prosecute any alcohol or drug abuse patient.[facility]In the event this information is protected by the Federal Confidentiality of Alcohol and Drug Abuse Patient Records regulations: The Federal rules restrict any use of the information to criminally investigate or prosecute any alcohol or drug abuse patient.[facility]In the event this information is protected by the Federal Confidentiality of Alcohol and Drug Abuse Patient Records regulations: The Federal rules restrict any use of the information to criminally investigate or prosecute any alcohol or drug abuse patient.[facility] HospitalIn the event this information is protected by the Federal Confidentiality of Alcohol and Drug Abuse Patient Records regulations: The Federal rules restrict any use of the information to criminally investigate or prosecute any alcohol or drug abuse patient.[facility]In the event this information is protected by the Federal Confidentiality of Alcohol and Drug Abuse Patient Records regulations: The Federal rules restrict any use of the information to criminally investigate or prosecute any alcohol or drug abuse patient.[facility]In the event this information is protected by the Federal Confidentiality of Alcohol and Drug Abuse Patient Records regulations: The Federal rules restrict any use of the information to criminally investigate or prosecute any alcohol or drug abuse patient.[facility]In the event this information is protected by the Federal Confidentiality of Alcohol and Drug Abuse Patient Records regulations: The Federal rules restrict any use of the information to criminally investigate or prosecute any alcohol or drug abuse patient.[facility]In the event this information is protected by the Federal Confidentiality of Alcohol and Drug Abuse Patient Records regulations: The Federal rules restrict any use of the information to criminally investigate or prosecute any alcohol or drug abuse patient.[facility] Reason for Visit (unrecogniz ed section and content) Reason Comments Radiology Mammogram Specialty Diagnoses / Procedures Referred By Contac t Referred To Contact [facility] Diagnoses Encounter for screening mammogram for breast cancer Procedures DALE SCREENING W ADRIAN SCREENING DIGITAL BREAST TOMOSYNTHESIS BI SCREENING MAMMOGRAPHY BI 2-VIEW BREAST INC CAD Lena Fleming, NORMAN.PUBLICITY EXPERT [address] [place] [address] [facility] [address] [place] [address] Referral ID Status Reason Start Date Expiration Date V isits Requested Visits Authorized [id number] Closed Auto-Generate d Referral 03/06/2023 10/04/2023 1 1 Reason Comments Established Patient right foot pain x-ra y: 11/26/2020 Reason Comments Nasal Congestion sinus, cough, loss o f voice, BELLE x 7 days Reason Comments Established Patient Referral ID Status Reason Start Date Expiration Date V isits Requested Visits Authorized [id number] Closed Auto-Generate d Referral 07/25/2021 08/24/2022 1 1 Reason Comments Radiology MRI Specialty Diagnoses / Procedures Referred By Contac t Referred To Contact [facility] Diagnoses Malignant neoplasm of right breast in female, estrogen receptor positive, unspecified site of breast (HCC) Procedures MRI BREAST WO/W IVCON BILAT MRI BREAST WITHOUT&WITH CONTRAST W/[place] [address] [place] [address] [facility] Referral ID Status Reason Start Date Expiration Date V isits Requested Visits Authorized [id number] Closed Auto-Generate d Referral 09/15/2022 04/16/2023 1 1 Reason Comments Refill Request Reason Comments Established Patient Reason Comments Care Coordination BCI testing Reason Comments Radiology Mammogram Specialty Diagnoses / Procedures Referred By Contac t Referred To Contact [facility] Diagnoses Encounter for screening mammogram for high-risk patient Procedures DALE SCREENING W ADRIAN SCREENING DIGITAL BREAST TOMOSYNTHESIS BI SCREENING MAMMOGRAPHY BI 2-[place] [address] [place] [address] [facility] [address] [place] [address] Referral ID Status Reason Start Date Expiration Date V isits Requested Visits Authorized [id number] Closed Auto-Generate d Referral 03/31/2024 09/28/2024 1 1 Reason Comments Urinary Frequency Frequency, urgency, odor and cloudy urine x 3 days Reason Comments Med Change Request Reason Comments MRI Appointment Specialty Diagnoses / Procedures Referred By Contac t Referred To Contact [facility] Diagnoses Breast cancer screening, high risk patient Procedures MRI BREAST WO/W IVCON BILATERAL MRI BREAST WITHOUT&WITH CONTRAST W/CAD BILATERAL Lena Fleming APRN.PUBLICITY EXPERT [address] [place] [address] Phone: tel: fax: [id number] Referral ID Status Reason Start Date Expiration Date V isits Requested Visits Authorized [id number] Closed Auto-Generate d Referral 11/03/2024 06/03/2025 1 1 Care Teams (unrecognized sec tion and content) Senior Sales Operations Manager Relationship Specialty Start Date End Date Zeny Ricardo MD [address] [place] [address] PCP - General Family Practice 11/26/20 Breanna Marmolejo RN Specialty Log Buyer Hematology/Oncology 12/02/20 Senior Sales Operations Manager Relationship Specialty Start Date End Date Zeny Ricardo MD [address] [place], [place] [id number] PCP - General Family Practice 11/26/20 Breanna Marmolejo RN Specialty Log Buyer Hematology/Oncology 12/02/20 Senior Sales Operations Manager Relationship Specialty Start Date End Date Zeny Ricardo MD [address] [place], [place] [id number] PCP - General Family Practice 11/26/20 Breanna Marmolejo RN Specialty Log Buyer Hematology/Oncology 12/02/20 Senior Sales Operations Manager Relationship Specialty Start Date End Date Zeny Ricardo MD [address] [place] [address], [place] [address] PCP - General Family Medicine 11/26/20 Breanna Marmolejo RN Specialty Log Buyer Hematology/Oncology 12/02/20 Senior Sales Operations Manager Relationship Specialty Start Date End Date Zeny Ricardo MD [address] [facility], [place] [address] PCP - General Family Medicine 11/26/20 Breanna Marmolejo RN Specialty Log Buyer Hematology/Oncology 12/02/20 Team Status: Active Member Role Status Dates Dr. Toshia Kingsley MD Family Provider Active Dr. Toshia Kingsley MD Primary Care Provider Active Team Status: Inactive Member Role Status Dates Dr. Toshia Kingsley MD Primary Care Provider, [place] Provider Active Dr. Alexia Porter MD Attending Provider Active Team Status: Inactive Member Role Status Dates Dr. Toshia Kingsley MD Primary Care Provider Active Dr. Alexia Porter MD Attending Provider Active Senior Sales Operations Manager Relationship Specialty Start Date End Date Zeny Ricardo MD [address] [facility], [place] [id number] PCP - General Family Medicine 11/26/20 Breanna Marmolejo RN Specialty Log Buyer Hematology/Oncology 12/02/20 Senior Sales Operations Manager Relationship Specialty Start Date End Date Zeny Ricardo MD [address] [facility], [place] [address] PCP - General Family Medicine 11/26/20 Breanna Marmolejo RN Specialty Log Buyer Hematology/Oncology 12/02/20 Senior Sales Operations Manager Relationship Specialty Start Date End Date Zeny Ricardo MD [address] [facility], [place] [id number] PCP - General Family Medicine 11/26/20 Breanna Marmolejo RN Specialty Log Buyer Hematology/Oncology 12/02/20 Elizabeth Pak LISW Ancillary Services Manager 09/05/22 Team Status: Active Member Role Status Dates Dr. Toshia Kingsley MD Family Provider Active Dr. Jimmie Ricardo MD Primary Care Provider Activ e Team Status: Active Member Role Status Dates Dr. Jimmie Ricardo MD Primary Care Provider Activ e Dr. Ye Cisneros MD Attending Provider Activ e Dr. Alexia Porter MD Referring Provider Active Team Status: Inactive Member Role Status Dates Dr. Alexia Porter MD Attending Provider, Referr ing Provider Active Dr. Jimmie Ricardo MD Primary Care Provider Activ e Senior Sales Operations Manager Relationship Specialty Start Date End Date Zeny Ricardo MD [address] [facility] [place], [place] [address] PCP - General Family Medicine 11/26/20 Breanna Marmolejo RN Specialty Log Buyer Hematology/Oncology 12/02/20 Elizabeth Pak LISW Ancillary Services Manager 09/05/22 Senior Sales Operations Manager Relationship Specialty Start Date End Date Zeny Ricardo MD [address] [facility] [place], [place] [address] PCP - General Family Medicine 11/26/20 Breanna Marmolejo RN Specialty Log Buyer Hematology/Oncology 12/02/20 Elizabeth Pak LISW Ancillary Services Manager 09/05/22 Senior Sales Operations Manager Relationship Specialty Start Date End Date Zeny Ricardo MD [address] [place] [address] PCP - General Family Medicine 11/26/20 Breanna Marmolejo RN Specialty Log Buyer Hematology/Oncology 12/02/20 Elizabeth Pak LISW Ancillary Services Manager 09/05/22 Senior Sales Operations Manager Relationship Specialty Start Date End Date Zeny Ricardo MD [address] [place], [place] [address] PCP - General Family Medicine 11/26/20 Breanna Marmolejo, RN Specialty Log Buyer Hematology/Oncology 12/02/20 Elizabeth Pak LISW Ancillary Services Manager 09/05/22 Senior Sales Operations Manager Relationship Specialty Start Date End Date Zeny Ricardo MD [address] [place], [place] [address] PCP - General Family Medicine 11/26/20 Breanna Marmolejo, RN Specialty Log Buyer Hematology/Oncology 12/02/20 Elizabeth Pak LISW Ancillary Services Manager 09/05/22 Senior Sales Operations Manager Relationship Specialty Start Date End Date Zeny Ricardo MD [address] [place], [place] [address] PCP - General Family Medicine 11/26/20 Senior Sales Operations Manager Relationship Specialty Start Date End Date Zeny Ricardo MD [address] [place] [address] PCP - General Family Medicine 11/26/20 Breanna Marmolejo, ANAYA Specialty Log Buyer Hematology/Oncology 12/02/20 Elizabeth Pak LISW Ancillary Services Manager 09/05/22 Senior Sales Operations Manager Relationship Specialty Start Date End Date Zeny Ricardo MD [address] [place], [place] [address] PCP - General Family Medicine 11/26/20 Breanna Marmolejo, ANAYA Specialty Log Buyer Hematology/Oncology 12/02/20 Elizabeth Pak LISW Ancillary Services Manager 09/05/22 Senior Sales Operations Manager Relationship Specialty Start Date End Date Zeny Ricardo MD [address] [place] [place], [place] [address] PCP - General Family Medicine 11/26/20 Breanna Marmolejo RN Specialty Log Buyer Hematology/Oncology 12/02/20 Elizabeth Pak LISW Ancillary Services Manager 09/05/22 Senior Sales Operations Manager Relationship Specialty Start Date End Date Zeny Ricardo MD [address] [place] [address] PCP - General Family Medicine 11/26/20 Breanna Marmolejo RN Specialty Log Buyer Hematology/Oncology 12/02/20 Elizabeth Pak LISW Ancillary Services Manager 09/05/22 Senior Sales Operations Manager Relationship Specialty Start Date End Date Zeny Ricardo MD [address] [place] [address] PCP - General Family Medicine 11/26/20 Breanna Marmolejo RN Specialty Log Buyer Hematology/Oncology 12/02/20 Elizabeth Pak LISW Ancillary Services Manager 09/05/22 Senior Sales Operations Manager Relationship Specialty Start Date End Date Zeny Ricardo MD [address] [place] [address] PCP - General Family Medicine 11/26/20 Breanna Marmolejo, RN Specialty Log Buyer Hematology/Oncology 12/02/20 Elizabeth Pak LISW Ancillary Services Manager 09/05/22 Senior Sales Operations Manager Relationship Specialty Start Date End Date Zeny Ricardo MD [address] [facility] [facility] [place], [place] [address] PCP - General Family Medicine 11/26/20 Breanna Marmolejo, ANAYA Specialty Log Buyer Hematology/Oncology 12/02/20 Elizabeth Pak LISW [address] [place], [place] [id number] Ancillary Services Manager 09/05/22 Senior Sales Operations Manager Relationship Specialty Start Date End Date Zeny Ricardo MD [address] [place] [address] PCP - General Family Medicine 11/26/20 Breanna Marmolejo RN Specialty Log Buyer Hematology/Oncology 12/02/20 Elizabeth Pak LISW [address] [place], [place] [id number] Ancillary Services Manager 09/05/22 Senior Sales Operations Manager Relationship Specialty Start Date End Date Zeny Ricardo MD [address] [place] [address] PCP - General Family Medicine 11/26/20 Breanna Marmolejo, ANAYA Specialty Log Buyer Hematology/Oncology 12/02/20 Elizabeth Pak LISW [address] [place], [place] [id number] Ancillary Services Manager 09/05/22 Senior Sales Operations Manager Relationship Specialty Start Date End Date Zeny Ricardo MD [address] [place] [address] PCP - General Family Medicine 11/26/20 Breanna Marmolejo, RN Specialty Log Buyer Hematology/Oncology 12/02/20 Elizabeth Pak LISW [address] [place] [address] Ancillary Services Manager 09/05/22 Team Status: Active Member Role Status Dates Dr. Toshia Kingsley MD Family Provider Active Dr. Zeny Ricardo MD Primary Care Provider Acti ve Team Status: Inactive Member Role Status Dates Dr. Zeny Ricardo MD Primary Care Provider Acti ve Start: August 21, 2024 End: August 21, 2024 Dr. Zeny Ricardo MD Referring Provider Active Start: August 21, 2024 End: August 21, 2024 NIKA Ceballos Attending Provider Active Start: August 21, 2024 End: August 21, 2024 Team Status: Inactive Member Role Status Dates Dr. Zeny Ricardo MD Primary Care Provider Acti ve Start: November 18, 2024 End: November 18, 2024 Dr. Zeny Ricardo MD Referring Provider Active Start: November 18, 2024 End: November 18, 2024 NIKA Ceballos Attending Provider Active Start: November 18, 2024 End: November 18, 2024 Team Status: Active Member Role/Relationship Status Dates Dr. Toshia Kingsley MD Family Provider Active Dr. Zeny Ricardo MD Primary Care Provider Acti ve Team Status: Inactive Member Role/Relationship Status Dates Dr. Zeny Ricardo MD Primary Care Provider Acti ve Start: August 21, 2024 End: August 21, 2024 Dr. Zeny Ricardo MD Referring Provider Active Start: August 21, 2024 End: August 21, 2024 NIKA Ceballos Attending Provider Active Start: August 21, 2024 End: August 21, 2024 Team Status: Inactive Member Role/Relationship Status Dates Dr. Zeny Ricardo MD Primary Care Provider Acti ve Start: November 18, 2024 End: November 18, 2024 Dr. Zeny Ricardo MD Referring Provider Active Start: November 18, 2024 End: November 18, 2024 NIKA Ceballos Attending Provider Active Start: November 18, 2024 End: November 18, 2024 Team Status: Inactive Member Role/Relationship Status Dates Dr. Zeny Ricardo MD Primary Care Provider Actjossie ve Start: December 18, 2024 End: December 18, 2024 Dr. Zeny Ricardo MD Referring Provider Active Start: December 18, 2024 End: December 18, 2024 NIKA Ceballos Attending Provider Active Start: December 18, 2024 End: December 18, 2024 Goals (unrecognized section and content) Goals may be documented in a n alternate sectionGoals may be documented in an alternate sectionGoals may be documented in an alternate sectionGoals may be documented in an alternate section INFORMATION SOURCE (unrecogn ized section and content) DATE CREATED AUTHOR 11/05/2024 [facility] DATE CREATED AUTHOR 'S SAKSHI OLIVO 12/29/[address] [facility] FOR RECORDS PERTAINING TO PATIENTS WHO ARE OR HAVE BEEN ENROLLED IN A CHEMICAL DEPENDENCY/SUBSTANCEABUSE PROGRAM, SOME INFORMATION MAY BE OMITTED. This clinical summary was aggregated from multiple sources. Caution should be exercised in using it in the provision of clinical care. This summary normalizes information from multiple sources, and as a consequence, information in this document may materially change the coding, format and clinical context of patient data. In addition, data may be omitted in some cases. CLINICAL DECISIONS SHOULD BE BASED ON THE PRIMARY CLINICAL RECORDS. [facility] [employer] provides no warranty or guarantee of the accuracy or completeness of information in this document.
--- OUTSIDE RECORDS SUMMARY | 2025-01-01 10:26 | XMS RPT_ITS | CCD ---
Author Organization [facility] Care Team Providers Care Country Printer Apprentice Name Role Phone Alexia Porter MD Unavailable [phone] Zeny Ricardo MD Primary Care Provider Fausto JULIEN, Breanna Unavailable Unavailable Zeny Ricardo MD Primary Care Provider Fausto JULIEN, Breanna Unavailable Unavailable Dr. Toshia Kingsley Primary Care Provider Dr. Toshia Kingsley Referring Provider [phone] Alexia Porter Attending Provider Zeny Ricardo MD Primary Care Provider Fausto JULIEN, Breanna Unavailable Unavailable Mellisa RAMP FLIGHT ATTENDANT, Elizabeth Unavailable Dr. Toshia Kingsley Primary Care Provider Dr. Toshia Kingsley Referring Provider [phone] Alexia Porter Attending Provider [phone] Dr. Jimmie Ricardo Primary Care Provider [phone] Dr. Ye Cisneros Attending Provider [phone] Dr. Alexia Porter Referring Provider Zeny Ricardo MD Primary Care Provider Fausto JULIEN, Breanna Unavailable Unavailable Zeny Ricardo MD Primary Care Provider Mellisa RAMP FLIGHT ATTENDANT, Elizabeth Unavailable [phone] LENA FLEMING Referring Unavailable ZENY RICARDO Primary [...] Provider Dr. Zeny Ricardo MD Referring Provider Matt COLLIERY CLERK-C, Janet Attending Provider Alexia Porter Attending Unavailable [facility] Unavailable Ranney, Christopher Referring Unavailable Janet Gutierrez Attending Unavailable Ranney, Christopher Referring Unavailable [facility] Unavailable Janet Gutierrez Attending Unavailable Ranney, Christopher Referring Unavailable [facility], [facility] Unavailable Janet Gutierrez Attending Unavailable Ranney, Christopher Referring Unavailable [facility], [facility] Unavailable Alexia Porter Attending Unavailable Care Physician, No Primary Primary Care Unava ilable Care Physician, No Primary Referring Unava ilable Alexia Porter Attending Unavailable Alexia Porter Referring Unavailable [facility] Unavailable Alexia Porter Attending Unavailable Ran[facility], [facility] Unavailable Ranney, Christopher Referring Unavailable Allergies Allergy Classification Reported Allergen(s) Allergy Type Date of Onset Reaction(s) Facility (20 sources) Promethazine; Translations: [PROMETHAZINE] Drug Allergy 1 Mental Status Change [facility] (1 source) Promethazine Drug Allergy 5 [facility] Repository Medications Current Medications Medication Drug [...] Take 0.5 tablets by mouth once daily. Pzlsqma-Wosp-Fsulk-Oreg -Capryl (2 sources) Start: 08-03-2022 Pancrcj-Ektk-Iaduh-Or eg-Capryl Active CAP PO August 03, 2022 1:00am Start: 08-03-2022 Oavfnix-Dvfq-I jxkx-Mxey-Dbwhna Active CAP PO August 03, 2022 12:00am [...] daily. take 1 tablet once d aily Vxeerqlw-Ecro-Ubcyx- Oreg-Capry 100 mg-150 mg- 50 mg-150 mg capsule (2 sources) Start: 08-03-2022 End: 11-02-2023 Mtymehjs-Wfco-Gudsd- Oreg-Capry 100 mg-150 mg- 50 mg-150 mg [...] sources) Long-term current use of tamoxifen; Translations: [skilled nursing (current) use of selective estrogen receptor modulators [...] 10-09-2022 Chronic Comment on above: Nutrition plan: Pike nced calorie restricted nutritional plan my fitness pal. discussed tape sewing machine operator consult - not covered. Medication plan: 1/2 tab phentermine. discussed topamax if needed; not now. control- postmenopausalBehavior intervention: discussed weighing at home and if goes above maintenance weight will track intake more closely. Sleep Fjmnadl-xarzeffwdg-whxmunoty; stress management. Exercise plan: encouraged formal exercise during winter months, consider yoga 1x weekly or resistance training 1-2x weekly. Has been lax on her exercise during winter months--planning to become more active in the summer months. weight bearing exercises. Nutrition plan: Pike nced calorie restricted nutritional plan. discussed tape sewing machine operator consult - not covered. Mindful eating Medication plan: 1/2 tab phentermine. discussed topamax if needed; not now. control- postmenopausalBehavior intervention: discussed weighing at home and if goes above maintenance weight will track intake more closely. Sleep Flwjgva-ampkhwkvwk-jzdlxsqvc; stress management. Exercise plan: Getting back into [...] (20 sources) Prophylactic aromatase inhibitors given; Translations: [skilled nursing (current) use of aromatase inhibitors] Onset: 06-01-2020 06-01-2020 Episodic Other aftercare (1 source) skilled nursing (current) use of aromatase inhibitors; Translations: [Aromatase [...] Office Visit Reporton 2024 Office Visit Report [facility] [address] [place] [address] OFFICE VISIT Date of Service: 12/18/24 MR#: [id number] Acct: [id number] Patient: FRANCIA BERMUDEZ Rep #: [id number] : 1970 Provider: NIKA Grey Age/Sex: 54/F [place] [facility] [place] Status: Signed with Addenda ADDENDUM by NIKA Gutierrez on 12/29/24 at 0944 Assessment Plan (1) Obesity, unspecified: COMMENT: Nutrition plan: Balanced calorie restricted nutritional plan. discussed tape sewing machine operator consult - not covered. Mindful eating Medication plan: 1/2 tab phentermine. discussed topamax if needed; not now. control- postmenopausal Behavior intervention: discussed weighing at home and if goes above maintenance weight will track intake more closely. Sleep Eoyqalw-hzvkbkirgn-rll ficult; stress management. Exercise plan: Getting back [...] Weight and BP check for weight management Cota Required: No Is patient in pain?: No [...] Ragland Signature: Date (if applicable) CC: Normal [facility] Motorcycle Delivery Driver Office Visit Reporton 11-18-2024 Motorcycle Delivery Driver Office Visit Report [facility] [address], [facility] [address] [place] [address] OFFICE VISIT Date of Service: 11/18/24 MR#: [id number] Acct: [id number] Name: FRANCIA BERMUDEZ Rep #: [id number] : 1970 Provider: NIKA Grey Age/Sex: 54/F Location: [facility] Status: Signed with Addenda ADDENDUM by NIKA [...] plan: Balanced calorie restricted nutritional plan. discussed tape sewing machine operator consult - not covered. Mindful eating Medication plan: 1/2 tab phentermine. discussed topamax if needed; not now. control- postmenopausal Behavior intervention: discussed weighing at home and if goes above maintenance weight will track intake more closely. Sleep Eedlger-xmtrszwmpk-gka ficult; stress management. 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 Normal [facility] CNOVSPon 11-03-2024 CNOVSP Visit (SP) Office (HEMCA4) FRANCIA BERMUDEZ ([id number]) 1970 F Date Time Provider Department 11/03/24 12:00 PM LENA FLEMING [facility] During your visit today, we recorded the following information about you: Temperature Pulse Respiration Blood pressure 97.5 degrees 93/minute 18/minute 119/78 Weight 64 kg Giovani Cosme LPN 11/03/2024 4:17 PM Signed Additional intake questions: Has the patient had fever, nausea, vomiting, diarrhea, constipation, fatigue for > 1 week? No Does the patient have a decreased appetite? No Does patient want to see a Farm Mortgage Agent? No (yes to any of above refer [...] year old woman with T3N0, ER positive, KS positive, Kui5hso negative (oncotype dx recurrence score of 14), [...] In February 2024, labs ordered by her neighborhood conservation officer revealed a vitamin D level of 25.1 [...] discussed with the Patient or Patient's Authorized Tube Cleaner. As applicable, any other physician, advance practice provider, medical student, or other health professional student that will be observing or involved in the sensitive examination for educational or training purposes was discussed (more content not included)... Normal [facility] MRI BREAST WO/W IVCON BILon 11-03-2024 MRI BREAST WO/W IVCON DANK * * *Final Report* * * DATE OF EXAM: Nov 03 2024 11:10AM [facility] 0773 - MRI BREAST WO/W IVCON DANK / PROCEDURE REASON: Breast cancer screening, high risk patient * * * * Physician Interpretation * * * * [place] [address] #[id number] - MRI BREAST WO/W IVCON DANK HISTORY: [...] processing was performed using a semi-automated software Kneeboneacad, on an independent workstation by the physician, [...] BI-RADS Category 2: Benign Interpreting Radiologist: Katelynn Haro M.D. Electronically signed on: 11/04/2024 Parachute Folder: [id number] Transcribe Date/Time: Nov 03 2024 10:25A Dictated by : KATELYNN HARO MD This examination was interpreted and the report reviewed and electronically signed by: KATELYNN HARO MD on Nov 04 2024 12:43PM EST [id number] Normal [facility] Bacteria Ur Culton 5 Bacteria identified Cx [...] , Intermediate >32 , Resistant >64 Abnormal [facility] Comment on above: Performed By: #### 6 30-4 #### [facility] CLIA [id number] [address] [place] [address] [place] CNOVon 10-07-2024 CNOV Office Visit (UCWSTR ) FRANCIA BERMUDEZ ([id number]) 1970 F Date Time Provider Department 10/07/24 [...] site unspecified [N39.0] Order(s):UA DIP, URINE (POC) [7940411] Order #: [id number]. #:[id number] BACTERIAL CULTURE, URINE [SQURCUL] Order #: [id number]. #:[id number] nitrofurantoin monohydrate and macrocrystal (MACROBID) 100 mg [...] [J30.9] 02/11/2010 Routine general medical examination at 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/29/2017 Malignant neoplasm of right breast in female, e*10/23/2017 S/P breast reconstruction [Z98.890] 11/16/2017 Breast asymmetry between nome breast and elia*11/29/2017 History of right breast [...] for Encounter Date Provider Department Center 10/07/2024 [id number] SYED UCWSTR [facility] Encounter Status:Closed by RODRI SYED on 10/07/24 Normal [facility] UA DIP, URINE (POC)on 2024 BILIRUBIN UA (POCT) Negative Negative [facility] CLARITY UA (POCT) Cloudy [facility] COLOR UA (POCT) Dark yellow [facility] GLUCOSE UA (POCT) Negative Negative mg/dL [facility] Hemoglobin Ql (U) Trace-intact Abnormal Negative [facility] Interpretation and review of laboratory results Abnormal [facility] KETONE UA (POCT) Negative Negative mg/dL [facility] LEUKOCYTES UA (POCT) Small Abnormal [facility] NITRITE UA (POCT) Positive Abnormal Negative [facility] PH UA (POCT) 6.5 4.5 - 8.0 [facility] Protein Ql (U) Negative Negative mg/dL [facility] SPECIFIC GRAVITY UA (POCT) 1.015 1.005 - 1.030 [facility] UROBILINOGEN UA (POCT) 0.2 Normal E.U./dL [facility] Location:[address], [place], [place], [address] [place] [address] POINT OF CARE [facility] Motorcycle Delivery Driver Office Visit Reporton 08-21-2024 Motorcycle Delivery Driver Office Visit Report [facility] [address], [address] [place] [address] OFFICE VISIT Date of Service: 08/21/24 MR#: [id number] Acct: [id number] Name: FRANCIA BERMUDEZ Rep #: [id number] : 1970 Provider: NKIA Grey Age/Sex: 54/F Location: [facility] Status: Signed Intake Vital Signs 05/29/24 10:40 08/21/24 15:31 Height 5 ft 3 in 5 ft 3 in Weight: 139 lb 138 lb BMI 24.6 24.4 BP 127/83 H 117/82 H Pulse 80 77 Intake Visit Reasons: 3 M FU Cota Required: No Is patient in pain?: No [...] at home: Yes 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 discussed tape sewing machine operator consult - not covered. Medication plan: 1/2 tab phentermine. discussed topamax if needed; not now. contro (more content not included)... Normal [facility] Motorcycle Delivery Driver Office Visit Reporton 05-29-2024 Motorcycle Delivery Driver Office Visit Report [facility] [address], [address] [place] [address] OFFICE VISIT Date of Service: 05/29/24 MR#: [id number] Acct: [id number] Name: FRANCIA BERMUDEZ Rep #: [id number] : 1970 Provider: Dr. 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 Normal [facility] BD DXA - AXIAL SKELETONon BD [...] years, Gender: Female SCANNER INFORMATION: DXA Model: [employer] (S/N: [id number]) Date Scanned: 04/04/2024 10:15 AM CLINICAL HISTORY: [...] FOR MORE INFORMATION ABOUT DIAGNOSIS AND TREATMENT: [facility] Center for Osteoporosis and Metabolic Bone Disease:? www.ccf.org/arthritis/ osteo National Osteoporosis Foundation:? www.nof.org International Society of Clinical Densitometry www.iscd.org Parachute Folder: [id number] Transcribe Date/Time: Apr 04 2024 10:24A Dictated by : SENTHIL POST MD This examination was interpreted and the report reviewed and electronically signed by: SENTHIL POST MD on Apr 04 2024 10:36AM EST [id number] -1.6 Normal [facility] CNOVSPon 04-04-2024 CNOVSP Visit (SP) Office (HEMCA4) FRANCIA BERMUDEZ ([id number]) 1970 F Date Time Provider Department 04/04/24 11:00 AM LENA FLEMING [facility] During your visit today, we recorded the [...] year old woman with T3N0, ER positive, KS positive, Afh4aol negative (oncotype dx recurrence score of 14), [...] Right mastectomy with sentinel node procedure and cold roll catcher / implant reconstruction SIGNIFICANT (CANCER) FAMILY MEDICAL [...] discussed with the Patient or Patient's Authorized Tube Cleaner. As applicable, any other physician, advance practice provider, medical student, or other health professional student that will be observing or involved in the sensitive examination for educational or training purposes was discussed with the Patient or Authorized Tube Cleaner. The Patient or Authorized Tube Cleaner has agreed to proceed with the sensitive examination. Pt was offered a alodize machine operator, but verbalized that she was comfortable with proceeding with exam without one. General appearance: well appearing, alert, in no acute distress Skin: Skin color, texture, turgor normal, no rashes or lesions Head: unremarkable Neck: Supple, no adenopathy Lungs: lungs clear to auscultation, no wheezing or rhonchi Heart: Negative, RRR Breasts: Right breast exam reveals i (more content not included)... Normal [facility] FRANCIA BERMUDEZ ([id number]) 1970 F Date Time Provider Department 04/04/24 BREANNA MARMOLEJO HEMJANIYA4 During your visit today, we recorded the following information about you: Breanna Marmolejo RN 04/04/2024 4:29 PM Signed Breast Cancer Index ordered via [employer] portal as requested by Dr Huma Good. Order, pathology report and insurance information faxed to [employer]. Breanna Marmolejo RN Allergies As of Date: [...] [J30.9] 02/11/2010 Routine general medical examination at 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/29/2017 Malignant neoplasm of right breast in female, e*10/23/2017 S/P breast reconstruction [Z98.890] 11/16/2017 Breast asymmetry between nome breast and elia*11/29/2017 History of right breast cancer [Z85.3] 04/09/2018 Lymphedema [I89.0] 01/20/2019 Vaginal dryness [N89.8] 06/01/2020 Arthralgia of multiple sites [M25.50] 06/01/2020 Aromatase inhibitor use [Z79.811] 06/01/2020 Insomnia [G47.00] 06/01/2020 Encounter Status:Closed by BREANNA MARMOLEJO on 04/04/24 Normal [facility] DXA Skeletal system.axial Vi ews for bone densityOrdered By: [facility]cf Provider on 04-04-2024 LOWEST T-SCORE -1.6 [facility] DXA Skeletal system.axial Vi ews for [...] FOR MORE INFORMATION ABOUT DIAGNOSIS AND TREATMENT: [facility] Center for Osteoporosis and Metabolic Bone Disease:? www.ccf.org/arthritis/ osteo National Osteoporosis Foundation:? www.nof.org International Society of Clinical Densitometry www.iscd.org Parachute Folder: [id number] Transcribe Date/Time: Apr 04 2024 10:24A Dictated by : SENTHIL POST MD This examination was interpreted and the report reviewed and electronically signed by: SENTHIL POST MD on Apr 04 2024 10:36AM [facility] DIVISION OF RADIOLOGY * * *Final Report* * * DATE OF EXAM: Apr 04 2024 10:15AM [facility] 0804 - BD DXA - AXIAL SKELETON / PROCEDURE REASON: Aromatase inhibitor use * * * * Physician Interpretation * * * * EXAMINATION: DXA BONE DENSITOMETRY BD DXA - AXIAL SKELETON PATIENT DEMOGRAPHICS: Age: 53 years, Gender: Female SCANNER INFORMATION: DXA Model: A21 Lunar iDXA (S/N: [id number]) Date Scanned: 04/04/2024 10:15 AM CLINICAL HISTORY: [...] performed: not ordered DIVISION OF RADIOLOGY Provider, [facility] - 04/04/2024 * * *Final Report* * * DATE OF EXAM: Apr 04 2024 10:15AM [facility] 0804 - BD DXA - AXIAL SKELETON / PROCEDURE REASON: Aromatase inhibitor use * * * * Physician Interpretation * * * * EXAMINATION: DXA BONE DENSITOMETRY BD DXA - AXIAL SKELETON PATIENT DEMOGRAPHICS: Age: 53 years, Gender: Female SCANNER INFORMATION: DXA Model: A21 Lunar iDXA (S/N: [id number]) Date Scanned: 04/04/2024 10:15 AM CLINICAL HISTORY: [...] FOR MORE INFORMATION ABOUT DIAGNOSIS AND TREATMENT: [facility] Center for Osteoporosis and Metabolic Bone Disease:? www.ccf.org/arthritis/ osteo National Osteoporosis Foundation:? www.nof.org International Society of Clinical Densitometry www.iscd.org Parachute Folder: [id number] Transcribe Date/Time: Apr 04 2024 10:24A Dictated by : SENTHIL POST MD This examination was interpreted and the report reviewed and electronically signed by: SENTHIL POST MD on Apr 04 2024 10:36AM EST [facility] Radiology Study observation (narrative) [facility] DALE SCREENING W TOMOon 04-04 DALE SCREENING W ADRIAN * * *Final Report* * * DATE OF EXAM: Apr 04 2024 9:35AM [facility] 0582 - DALE SCREENING W ADRIAN / PROCEDURE REASON: Encounter for screening mammogram for high-risk patient * * * * Physician Interpretation * * * * RESULT: [facility] [address] [facility] [address] [place] [address] HISTORY: Patient is 53 years old and [...] Abner Kennedy M.D. Electronically signed on: 04/07/2024 Parachute Folder: [id number] Transcribe Date/Time: Apr 04 2024 9:03A Dictated by : ABNER KENNEDY MD This examination was interpreted and the report reviewed and electronically signed by: ABNER KENNEDY MD on Apr 07 2024 10:45PM EST [id number] Normal [facility] Glucoseon 02-22-2024 Glucose [Mass/Vol] 95 mg/dL Normal 74-106 [facility] Comment on above: Performed By: #### L 500.4100, L501.0100, L501.9520, L501.9985, L506.1000 #### [facility] [address] [place], [address] Hemoglobin A1con 02-22-2024 HbA1c (Bld) [Mass fraction] 5.3 % Normal 3.8-5.6 [facility] Comment on above: Result Comment: Norm al < 5.7 % Prediabetic 5.7 - 6.4 % Diabetic >or= 6.5 % Please note range changes. Performed By: #### L 500.4100, L501.0100, L501.9520, L501.9985, L506.1000 #### [facility] [address] [place], [address] Lipid Profileon 02-22-2024 Cholesterol [Mass/Vol] 206 mg/dL High 200 [facility] Comment on above: Result Comment: <200 mg/dL Desirable 200-240 mg/dL Borderline >240 mg/dL High Risk Performed By: #### L 500.4100, L501.0100, L501.9520, L501.9985, L506.1000 #### [facility] [address] [place], [address] Cholesterol in HDL [Mass/Vol] 74 mg/dL Normal [facility] Comment on above: Result Comment: The drugs N-Acetylcysteine and Metamizole may falsely depress this assay. Reference Range HDL <40 mg/dL Low HDL Cholesterol HDL >or= 60 mg/dL High HDL Cholesterol Performed By: #### L 500.4100, L501.0100, L501.9520, L501.9985, L506.1000 #### [facility] [address] [place], [address] Cholesterol in LDL [Mass/Vol] 113 mg/dL Normal 0-130 [facility] Comment on above: Performed By: #### L 500.4100, L501.0100, L501.9520, L501.9985, L506.1000 #### [facility] [address] [place], [address] Cholesterol in VLDL [Mass/Vol] 19 mg/dL Normal 5-40 [facility] Comment on above: Performed By: #### L 500.4100, L501.0100, L501.9520, L501.9985, L506.1000 #### [facility] [address] [place], [address] Triglyceride [Mass/Vol] 93 mg/dL Normal [facility] Comment on above: Result Comment: The drugs N-Acetylcysteine and Metamizole may falsely depress this assay. Serum Triglycerides Reference Interval Normal <150 mg/dL Borderline high 150 - 199 mg/dL High 200 - 499 mg/dL Very High > or = 500 mg/dL Performed By: #### L 500.4100, L501.0100, L501.9520, L501.9985, L506.1000 #### [facility] [address] [place], [address] Office Visit Reporton 2023 Office Visit Report [facility] [address] [facility] [place] [address] OFFICE VISIT Date of Service: 02/22/24 MR#: [id number] Acct: [id number] Patient: FRANCIA BERMUDEZ Rep #: [id number] : 1970 Provider: Dr. Alexia ratliff MD Age/Sex: 53/F Location: [facility] Status: Signed Intake Vital Signs 12/11/23 11:20 01/17/24 15:12 02/22/24 09:13 Height 5 ft 3 in 5 ft 3 in 5 ft 3 in Weight: 139 lb 136 lb BMI 24.6 24.0 BP 131/76 H 133/81 H Pulse 92 77 Pulse Source Monitor Intake Visit Reasons: 1 M FU Chief Complaint: Weight and BP check for weight management Cota Required: No Is patient in pain?: No [...] Please send new prescription to [facility] in [place]. patient seen for obesity related comorbidities/weight management [...] add another med or change up to Chirpifystart weightloss again Side Effects: No Chest Pain, [...] Ragland Signature: Date (if applicable) CC: Normal [facility] Thyroid Stim Hormone (TSH)on 02-22-2024 TSH 1.980 uIU/mL Normal 0.358-3.740 [facility] Comment on above: Performed By: #### L 500.4100, L501.0100, L501.9520, L501.9985, L506.1000 #### [facility] [address] [place], [address] Vitamin D,25 Hydroxyon 02-21 Vitamin D 25-OH 25.1 ng/mL Normal [facility] Comment on above: Result Comment: Margaret min D 25(OH) Status Range Deficiency <20 ng/mL (50nmol/L) Insufficiency 20 - 30 ng/mL (50 - 75 nmol/L) Sufficiency 30 - 100 ng/mL (75 - 250 nmol/L) Toxicity >100 ng/mL (>250 nmol/L) Performed By: #### L 500.4100, L501.0100, L501.9520, L501.9985, L506.1000 #### [facility] [address], [id number] Office Visit Reporton 2023 Office Visit Report [facility] [address] [address] OFFICE VISIT Date of Service: 01/17/24 MR#: [id number] Acct: [id number] Patient: FRANCIA BERMUDEZ Rep #: [id number] : 1970 Provider: Dr. Alexia ratliff MD Age/Sex: 53/F Location: [facility] Status: Signed Intake Vital Signs 11/30/23 10:06 [...] Weight and BP check for weight management Cota Required: No Is patient in pain?: No [...] Saucedoignfito Signature: Date (if applicable) CC: Normal [facility] DALE SCREENING W TOMOon 03-30 [facility] Absolute lymphocyte countOrd ered By: Dr. Porter on 10-06-2022 Lymphocytes Auto (Unsp spec) [#/Vol] 1.20 10*3/uL 0.83-4.51 [facility] Basophil percentageOrdered B y: Dr. Porter on 10-06-2022 Basophils/100 WBC (Bld) 0.4 % 0-1 [facility] Bilirubin [Mass/Vol] 0.30 mg/dL 0.20-1.00 [facility] Comment on above: For patients on eltr ombopag therapy, use of Dimension [place] TBIL is not recommended. Chloride [Moles/Vol] 108 mmol/L 98-107 [facility] Cholesterol [Mass/Vol] 227 mg/dL <200 [facility] Comment on above: <200 mg/dL Desirable 200-240 mg/dL Borderline >240 mg/dL High Risk Eosinophils/100 WBC (Bld) 2.3 % 0-5 [facility] Glucose [Mass/Vol] 110 mg/dL 74-106 [facility] Comment on above: Fasting Glucose resu lt from 100 to 125 mg/dL suggests IMPAIRED HOMEOSTASIS per A.D.A. criteria. Neutrophils (Bld) [#/Vol] 3.2 10*3/uL 2.0-7.7 [facility] Neutrophils/100 WBC (Bld) 66.0 % 47-70 [facility] Potassium [Moles/Vol] 3.9 mmol/L 3.5-5.1 [facility] Protein [Mass/Vol] 7.3 g/dL 6.4-8.2 [facility] Sodium [Moles/Vol] 142 mmol/L 136-145 [facility] Triglyceride [Mass/Vol] 119 mg/dL <199 [facility] Comment on above: The drugs N-Acetylcy steine and Metamizole may falsely depress this assay.Serum Triglycerides Reference Interval Normal <150 mg/dL Borderline high 150 - 199 mg/dL High 200 - 499 mg/dL Very High > or = 500 mg/dL WBC (Bld) [#/Vol] 4.8 10*3/uL 4.4-11.0 [facility] Blood erythrocytes count (nu mber/volume)Ordered By: Dr. Porter on 10-06-2022 RBC (Bld) [#/Vol] 4.38 10*6/uL 4.2-5.4 [facility] Blood hemoglobin measurement (mass/volume)Ordered By: Dr. Porter on 10-06-2022 Hemoglobin (Bld) [Mass/Vol] 13.0 g/dL 12.0-15.0 [facility] Blood lymphocytes/100 leukoc ytesOrdered By: Dr. Porter on 10-06-2022 Lymphocytes/100 WBC (Bld) 25.2 % 19-41 [facility] Blood monocytes/100 leukocyt esOrdered By: Dr. Porter on 10-06-2022 Monocytes/100 WBC (Bld) 5.9 % 0-10 [facility] Blood platelet mean volumeOr dered By: Dr. Porter on 10-06-2022 Platelet mean volume (Bld) [Entitic vol] 10.5 fL 6.2-12.0 [facility] Determination of erythrocyte mean corpuscular volume (MCV)Ordered By: Dr. Porter on 10-06-2022 MCV (RBC) [Entitic vol] 92.7 fL 81-99 [facility] Hematocrit Auto (Bld) [Volum e fraction]Ordered By: Dr. Porter on 10-06-2022 Hematocrit (Bld) [Volume fraction] 40.6 % 37-47 [facility] Laboratory - Chemistry and C hemistry - challengeOrdered By: Dr. Porter on 10-06-2022 ALP [Catalytic activity/Vol] 73 U/L 45-117 [facility] ALT [Catalytic activity/Vol] 20 U/L 13-56 [facility] CO2 [Moles/Vol] 30.0 mmol/L 21.0-32.0 [facility] Globulin (S) [Mass/Vol] 3.7 g/dL 2.2-4.2 [facility] Urea nitrogen/Creatinine [Mass ratio] 19.6 mg/mg 10-20 [facility] Laboratory - Hematology and Cell countsOrdered By: Dr. Porter on 10-06-2022 Erythrocyte distribution width (RBC) [Entitic vol] 43.7 fL 35.1-43.9 [facility] Erythrocyte distribution width (RBC) [Ratio] 12.8 % 11.6-14.6 [facility] Immature granulocytes/100 WBC (Bld) 0.200 % 0.0-0.9 [facility] Comment on above: IG% - Immature Granu locytes (promyelocytes, myelocytes and metamyelocytes) > 1% indicates that a LEFT SHIFT is Present. MCH (RBC) [Entitic mass] 29.7 pg 27.0-32.0 [facility] Nucleated RBC/100 WBC (Bld) [Ratio] 0 % 0-5 [facility] MCHC Auto (RBC) [Mass/Vol]Or dered By: Dr. Porter on 10-06-2022 MCHC (RBC) [Mass/Vol] 32.0 g/dL 32-36 [facility] No Panel InformationOrdered By: Dr. Porter on 10-06-2022 Estimated GFR (MDRD) Amer 110 mL/min >60 [facility] Comment on above: GFR Calc Estimated GFR (MDRD) Non-Af Amer 91 mL/min >60 [facility] Comment on above: Non- GFR Calc Vitamin D 25-Hydroxy 45.8 ng/mL [facility] Comment on above: Vitamin D 25(OH) Sta tus Range Deficiency <20 ng/mL (50nmol/L) Insufficiency 20 - 30 ng/mL (50 - 75 nmol/L) Sufficiency 30 - 100 ng/mL (75 - 250 nmol/L) Toxicity >100 ng/mL (>250 nmol/L) Platelets bldOrdered By: Dr. Porter on 10-06-2022 Platelets (Bld) [#/Vol] 226 10*3/uL 150-450 [facility] Serum or plasma albumin ayan urement (mass/volume)Ordered By: Dr. Porter on 10-06-2022 Albumin [Mass/Vol] 3.6 g/dL 3.2-5.0 [facility] Serum or plasma albumin/glob ulin mass ratioOrdered By: Dr. Porter on 10-06-2022 Albumin/Globulin [Mass ratio] 1.0 {ratio} 0.9-2.4 [facility] Serum or plasma calcium ayan urement (mass/volume)Ordered By: Dr. Porter on 10-06-2022 Calcium [Mass/Vol] 8.8 mg/dL 8.5-10.1 [facility] Serum or plasma cholesterol in HDL measurement (mass/volume)Ordered By: Dr. Porter on 10-06-2022 Cholesterol in HDL [Mass/Vol] 59 mg/dL >40 [facility] Comment on above: The drugs N-Acetylcy steine and Metamizole may falsely depress this assay. Reference Range HDL <40 mg/dL Low HDL Cholesterol HDL >or= 60 mg/dL High HDL Cholesterol Serum or plasma cholesterol in VLDL measurement (mass/volume)Ordered By: Dr. Porter on 10-06-2022 Cholesterol in VLDL [Mass/Vol] 24 mg/dL 5-40 [facility] Serum or plasma creatinine m easurement (mass/volume)Ordered By: Dr. Porter on 10-06-2022 Creatinine [Mass/Vol] 0.72 mg/dL 0.55-1.02 [facility] Comment on above: The validity of the calculated GFR & GFRAA in patients over 70 years has not been determined. Clinical correlation is essential. Serum or plasma low density lipoprotein (LDL) cholesterol measurement (mass/volume)Ordered By: Dr. Porter on 10-06-2022 Cholesterol in LDL [Mass/Vol] 144 mg/dL 0-130 [facility] Serum or plasma urea nitroge n measurement (mass/volume)Ordered By: Dr. Porter on 10-06-2022 Urea nitrogen [Mass/Vol] 14 mg/dL 7-18 [facility] Thin prep Papanicolaou smear with manual screeningOrdered By: Dr. Porter on 10-06-2022 Thin prep Papanicolaou smear with manual screening 14 U/L 15-37 [facility] Thin prep Papanicolaou smear with manual screening 4 5-15 [facility] Whole blood hemoglobin A1c/t otal hemoglobin ratio (mass fraction)Ordered By: Dr. Porter on 10-06-2022 HbA1c (Bld) [Mass fraction] 5.4 % 3.8-5.6 [facility] Comment on above: Normal < 5.7 % Predi abetic 5.7 - 6.4 % Diabetic >or= 6.5 % Please note range changes. MRI BREAST WO/W IVCON BILATo n 09-04-2022 [facility] Cervical or vagninal specime n microscopic examination by cytology stain (reported asOrdered By: Dr. Porter on 08-03-2022 Cytology report Cyto stain Doc (Cvx/Vag) Comment . [facility] Comment on above: The Pap smear [...] DNA Probe+sig amp Ql (Cvx) Negative Negative [facility] Comment on above: This nucleic acid am plification test detects fourteen high- risk HPV types (16,18,31,33,35,39,45,51,52,56,58,59,66,68)without differentiation. Laboratory - CytologyOrdered By: Dr. Porter on 08-03-2022 Thermostat Repairer Cyto stain Nom (Cvx/Vag) [ID] Comment . [facility] Comment on above: Viviana Prather, Cyto technologist (ASCP) Laboratory - Miscellaneous t estsOrdered By: Dr. Porter on 08-03-2022 Service comment (Unsp spec) [Interp] Comment . [facility] Comment on above: This liquid based Th inPrep(R) pap test was screened withthe use of an image guided system. Service comment (Unsp spec) [Interp] . . [facility] Liquid-based cerv Pap + CT/G C by JESS w reflex to high-risk HPV for ASCUSOrdered By: Dr. Porter on 08-03-2022 Cytology report Cyto stain.thin prep Doc (Cvx/Vag) Comment . [facility] Comment on above: Criteria not met, HP V Genotype not performed.Performed at: - [address] [id number] Director: Ella Salas MD, Phone: [phone] at: =[facility] [id number] Director: Ella Salas MD, Phone: [phone] No Panel InformationOrdered By: Dr. Porter on 08-03-2022 Pap Smear QC Review Comment . [facility] Comment on above: Sumaya Becerril, Cyto technologist Pathology report final diagnosis Narrative Comment . [facility] Comment on above: NEGATIVE FOR INTRAEP ITHELIAL LESION OR MALIGNANCY.THIS SPECIMEN WAS RESCREENED PART OF OUR HEAVY MACHINERY ASSEMBLER PROGRAM. XR Foot - right AP and Later al and obliqueon 11-26-2020 IMPRESSION: No acute osseous abnormality. Degenerative changes as described. Parachute Folder: MAURO Transcribe Date/Time: Nov 26 2020 9:30A Dictated by : GAUDENCIO MEJIA MD This examination was interpreted and the report reviewed and electronically signed by: GAUDENCIO MEJIA MD on Nov 26 2020 9:32AM [facility] DIVISION OF RADIOLOGY * * *Final Report* [...] hallux valgus deformity. DIVISION OF RADIOLOGY Provider, [facility] - 11/26/2020 * * *Final Report* [...] acute osseous abnormality. Degenerative changes as described. Parachute Folder: PSCB Transcribe Date/Time: Nov 26 2020 9:30A Dictated by : GAUDENCIO MEJIA MD This examination was interpreted and the report reviewed and electronically signed by: GAUDENCIO MEJIA MD on Nov 26 2020 9:32AM EST [facility] Radiology Study observation (narrative) [facility] XR Foot - right AP and Later al and obliqueOrdered By: [facility]cf Provider on 11-26-2020 [facility] Office Visit: Annualon 12-18 Documentation of current medications (procedure) Done Invalid Interpretation Code [facility] Documentation of current medications (procedure) T Invalid Interpretation Code [facility] Fall risk assessment No [place] [facility] Protein [facility] Protein mass conc T [facility] Tobacco smoking status NHIS Never [facility] Tobacco smoking status NHIS Never smoker [facility] Tobacco use [facility] Never smoker Invalid Interpretation Code [facility] Office Visit: Annualon 10-05 Breast Mammogram screening Normal Bilateral [facility] Office Visit: Annualon 03-20 General categories [interpretation] of Cervical or vaginal smear or scraping by Cyto stain Normal [facility] Vital Signs Date Time Vital Sign Value Performing Clinician Facility 11-18-2024 13:15-0400 Body height 160.[address] Zeny Ricardo MD Work Phone: [facility] 11-18-2024 13:15-0400 Body mass index (BMI) [Ratio] 25 kg/m2 Dr. Zeny Ricardo MD Work Phone: [facility] 11-18-2024 13:15-0400 Body weight 64.[address] Zeny Ricardo MD Work Phone: [facility] 11-18-2024 13:15-0400 Diastolic blood pressure 76 mm[Hg] Dr. Zeny Ricardo MD Work Phone: [facility] 11-18-2024 13:15-0400 Heart rate 72 /min Dr. Zeny Ricarod MD Work Phone: [facility] 11-18-2024 13:15-0400 Systolic blood pressure 116 mm[Hg] Dr. Zeny Ricardo MD Work Phone: [facility] 11-03-2024 11:38-0400 Body mass index (BMI) [Ratio] 24.69 kg/m2 Lena Fleming APRN.CNP Work Phone: [facility] 11-03-2024 11:38-0400 Body temperature 97.5 [degF] Lena Fleming PRECISION AGRONOMIST.LIVESTOCK LABORER Work Phone: [facility] 11-03-2024 11:38-0400 Body weight 64 kg Lena Fleming PRECISION AGRONOMIST.LIVESTOCK LABORER Work Phone: [facility] 11-03-2024 11:38-0400 Diastolic blood pressure 78 mm[Hg] Lena Fleming PRECISION AGRONOMIST.LIVESTOCK LABORER Work Phone: [facility] 11-03-2024 11:38-0400 Heart rate 93 /min Lena Fleming PRECISION AGRONOMIST.LIVESTOCK LABORER Work Phone: [facility] 11-03-2024 11:38-0400 Respiratory rate 18 /min Lena Fleming PRECISION AGRONOMIST.LIVESTOCK LABORER Work Phone: [facility] 11-03-2024 11:38-0400 SaO2% (BldA) [Mass fraction] 100 % Lena Fleming PRECISION AGRONOMIST.LIVESTOCK LABORER Work Phone: [facility] 11-03-2024 11:38-0400 Systolic blood pressure 119 mm[Hg] Lena Fleming PRECISION AGRONOMIST.LIVESTOCK LABORER Work Phone: [facility] 10-07-2024 18:12-0400 Body mass index (BMI) [Ratio] 24.46 kg/m2 Rodri Syed PRECISION AGRONOMIST.LIVESTOCK LABORER Work Phone: [facility] 10-07-2024 18:12-0400 Body temperature 97.81 [degF] Rodri Syed PRECISION AGRONOMIST.LIVESTOCK LABORER Work Phone: [facility] 10-07-2024 18:12-0400 Body weight 63.4 kg Rodri Syed PRECISION AGRONOMIST.LIVESTOCK LABORER Work Phone: [facility] 10-07-2024 18:12-0400 Diastolic blood pressure 82 mm[Hg] Rodri Syed PRECISION AGRONOMIST.LIVESTOCK LABORER Work Phone: [facility] 10-07-2024 18:12-0400 Heart rate 74 /min Rodri Syed PRECISION AGRONOMIST.LIVESTOCK LABORER Work Phone: [facility] 10-07-2024 18:12-0400 Respiratory rate 18 /min Rodri Syed PRECISION AGRONOMIST.LIVESTOCK LABORER Work Phone: [facility] 10-07-2024 18:12-0400 Systolic blood pressure 128 mm[Hg] Rodri Syed PRECISION AGRONOMIST.LIVESTOCK LABORER Work Phone: [facility] 08-21-2024 15:31-0400 Body mass index (BMI) [Ratio] 24.4 kg/m2 Dr. Zeny Ricardo MD Work Phone: [facility] 08-21-2024 15:31-0400 Body weight 62.[address] Zeny Ricardo MD Work Phone: [facility] 08-21-2024 15:31-0400 Diastolic blood pressure 82 mm[Hg] Dr. Zeny Ricardo MD Work Phone: [facility] 08-21-2024 15:31-0400 Heart rate 77 /min Dr. Zeny Ricardo MD Work Phone: [facility] 08-21-2024 15:31-0400 Systolic blood pressure 117 mm[Hg] Dr. Zeny Ricardo MD Work Phone: [facility] 04-04-2024 11:01-0400 Body height 161 cm Lena Fleming PRECISION AGRONOMIST.LIVESTOCK LABORER Work Phone: [facility] 04-04-2024 11:01-0400 Body mass index (BMI) [Ratio] 24.23 kg/m2 Lena Fleming PRECISION AGRONOMIST.LIVESTOCK LABORER Work Phone: [facility] 04-04-2024 11:01-0400 Body temperature 98.01 [degF] Lena Fleming PRECISION AGRONOMIST.LIVESTOCK LABORER Work Phone: [facility] 04-04-2024 11:01-0400 Body weight 62.8 kg Lena Fleming PRECISION AGRONOMIST.LIVESTOCK LABORER Work Phone: [facility] 04-04-2024 11:01-0400 Diastolic blood pressure 51 mm[Hg] Lena Bernadette PRECISION AGRONOMIST.LIVESTOCK LABORER Work Phone: [facility] 04-04-2024 11:01-0400 Heart rate 83 /min Lena Bernadette PRECISION AGRONOMIST.LIVESTOCK LABORER Work Phone: [facility] 04-04-2024 11:01-0400 Respiratory rate 16 /min Lena Bernadette PRECISION AGRONOMIST.LIVESTOCK LABORER Work Phone: [facility] 04-04-2024 11:01-0400 SaO2% (BldA) [Mass fraction] 100 % Lena Bernadette PRECISION AGRONOMIST.LIVESTOCK LABORER Work Phone: [facility] Comment on above: RA 04-04-2024 11:01-0400 Systolic blood pressure 138 mm[Hg] Lena Bernadette PRECISION AGRONOMIST.LIVESTOCK LABORER Work Phone: [facility] 03-30-2023 09:33-0400 Body temperature 98.01 [degF] Lena Bernadette PRECISION AGRONOMIST.LIVESTOCK LABORER Work Phone: [facility] 03-30-2023 09:33-0400 Body weight 67.59 kg Lena Bernadette PRECISION AGRONOMIST.LIVESTOCK LABORER Work Phone: [facility] 03-30-2023 09:33-0400 Diastolic blood pressure 90 mm[Hg] Lena Bernadette PRECISION AGRONOMIST.LIVESTOCK LABORER Work Phone: [facility] 03-30-2023 09:33-0400 Heart rate 80 /min Lena Bernadette PRECISION AGRONOMIST.LIVESTOCK LABORER Work Phone: [facility] 03-30-2023 09:33-0400 Respiratory rate 18 /min Lena Bernadette PRECISION AGRONOMIST.LIVESTOCK LABORER Work Phone: [facility] 03-30-2023 09:33-0400 SaO2% (BldA) [Mass fraction] 100 % Lena Bernadette PRECISION AGRONOMIST.LIVESTOCK LABORER Work Phone: [facility] 03-30-2023 09:33-0400 Systolic blood pressure 139 mm[Hg] Lena Bernadette PRECISION AGRONOMIST.LIVESTOCK LABORER Work Phone: [facility] 10-02-2022 16:15-0400 Body height 160.[address] Toshia Kingsley Work Phone: [facility] 10-02-2022 16:13-0400 Body mass index (BMI) [Ratio] 32.3 kg/m2 Dr. Toshia Kingsley Work Phone: [facility] 10-02-2022 16:13-0400 Body weight 82.[address] Toshia Kingsley Work Phone: [facility] 10-02-2022 16:13-0400 Diastolic blood pressure 80 mm[Hg] Dr. Toshia Kingsley Work Phone: [facility] 10-02-2022 16:13-0400 Heart rate 75 /min Dr. Toshia Kingsley Work Phone: [facility] 10-02-2022 16:13-0400 Systolic blood pressure 118 mm[Hg] Dr. Toshia Kingsley Work Phone: [facility] 09-04-2022 11:22-0400 Body height 160 cm Lena Bernadette PRECISION AGRONOMIST.LIVESTOCK LABORER Work Phone: [facility] 09-04-2022 11:22-0400 Body temperature 98.2 [degF] Lnea Bernadette PRECISION AGRONOMIST.LIVESTOCK LABORER Work Phone: [facility] 09-04-2022 11:22-0400 Body weight 82.15 kg Lena Bernadette PRECISION AGRONOMIST.LIVESTOCK LABORER Work Phone: [facility] 09-04-2022 11:22-0400 Diastolic blood pressure 74 mm[Hg] Lena Bernadette PRECISION AGRONOMIST.LIVESTOCK LABORER Work Phone: [facility] 09-04-2022 11:22-0400 Heart rate 66 /min Lena Bernadette PRECISION AGRONOMIST.LIVESTOCK LABORER Work Phone: [facility] 09-04-2022 11:22-0400 Respiratory rate 16 /min Lena Bernadette PRECISION AGRONOMIST.LIVESTOCK LABORER Work Phone: [facility] 09-04-2022 11:22-0400 SaO2% (BldA) [Mass fraction] 100 % Lena Fleming PRECISION AGRONOMIST.LIVESTOCK LABORER Work Phone: [facility] 09-04-2022 11:22-0400 Systolic blood pressure 133 mm[Hg] Lena Bernadette PRECISION AGRONOMIST.LIVESTOCK LABORER Work Phone: [facility] 08-03-2022 16:25-0500 Body height 160.[address] Toshia Kingsley Work Phone: [facility] 08-03-2022 16:20-0500 Body mass index (BMI) [Ratio] 31.9 kg/m2 Dr. Toshia Kingsley Work Phone: [facility] 08-03-2022 16:20-0500 Body weight 81.[address] Toshia Kingsley Work Phone: [facility] 08-03-2022 16:20-0500 Diastolic blood pressure 82 mm[Hg] Dr. Toshia Kingsley Work Phone: [facility] 08-03-2022 16:20-0500 Systolic blood pressure 125 mm[Hg] Dr. Toshia Kingsley Work Phone: [facility] 03-17-2022 09:12-0400 Body height 160 cm Huma Good MD Work Phone: [facility] 03-17-2022 09:12-0400 Body temperature 97.81 [degF] Huma Good MD Work Phone: [facility] 03-17-2022 09:12-0400 Body weight 82.42 kg Huma Good MD Work Phone: [facility] 03-17-2022 09:12-0400 Diastolic blood pressure 80 mm[Hg] Huma Good MD Work Phone: [facility] 03-17-2022 09:12-0400 Heart rate 67 /min Huma Good MD Work Phone: [facility] 03-17-2022 09:12-0400 Respiratory rate 16 /min Huma Good MD Work Phone: [facility] 03-17-2022 09:12-0400 SaO2% (BldA) [Mass fraction] 100 % Huma Good MD Work Phone: [facility] 03-17-2022 09:12-0400 Systolic blood pressure 121 mm[Hg] Huma Good MD Work Phone: [facility] 11-02-2021 15:30-0400 Body temperature 98.29 [degF] Ken Pendlebury PRECISION AGRONOMIST.LIVESTOCK LABORER Work Phone: [facility] 11-02-2021 15:30-0400 Body weight 80.65 kg Ken Pendlebury PRECISION AGRONOMIST.LIVESTOCK LABORER Work Phone: [facility] 11-02-2021 15:30-0400 Diastolic blood pressure 82 mm[Hg] Ken Pendlebury PRECISION AGRONOMIST.LIVESTOCK LABORER Work Phone: [facility] 11-02-2021 15:30-0400 Heart rate 100 /min Ken Pendlebury PRECISION AGRONOMIST.LIVESTOCK LABORER Work Phone: [facility] 11-02-2021 15:30-0400 Respiratory rate 21 /min Ken Pendlebury PRECISION AGRONOMIST.LIVESTOCK LABORER Work Phone: [facility] 11-02-2021 15:30-0400 SaO2% (BldA) [Mass fraction] 99 % Ken Pendlebury PRECISION AGRONOMIST.LIVESTOCK LABORER Work Phone: [facility] 11-02-2021 15:30-0400 Systolic blood pressure 128 mm[Hg] Ken Pendlebury PRECISION AGRONOMIST.LIVESTOCK LABORER Work Phone: [facility] 12-18-2016 16:22-0400 BMI (Body Mass Index) 28.87 kg/m2 Alexia Porter MD [facility] 12-18-2016 16:22-0400 BP Diastolic 81 mm[Hg] Alexia Porter MD [facility] 12-18-2016 16:22-0400 BP Systolic 134 mm[Hg] Alexia Porter MD [facility] 12-18-2016 16:22-0400 Height 160.02 cm Alexia Porter MD [facility] 12-18-2016 16:0400 Pulse (Heart Rate) 68 /min Alexia Porter MD [facility] 12-18-2016 16:-0400 Respiratory Rate 16 /min Alexia Porter MD [facility] 12-18-2016 16:0400 Weight 73.94 kg Alexia Porter MD [facility] Encounters Encounter Date Encounter Type Care Provider Facility Start: 12-18-2024 End: 12-18-2024 Patient encounter procedure Janet MAHER -[facility] Work Phone: Start: 12-18-2024 End: 12-18-[address] Zeny Ricardo MD Work Phone: -[facility] Start: 11-18-2024 End: 11-18-2024 Patient encounter procedure Janet MAHER -[facility] Work Phone: Start: 11-18-2024 End: 11-18-[address] Zeny Ricardo MD Work Phone: [facility] Work Phone: Start: 11-03-2024 End: 11-03-2024 Refill Lena Fleming APRN.LIVESTOCK LABORER Work Phone: Hematology/Oncology Comment on above: Med Change Request Start: 11-03-2024 End: 11-03-2024 Follow-up encounter Lena Fleming APRN.LIVESTOCK LABORER Work Phone: Hematology/Oncology Comment on above: Encounter for routin e cancer follow-up (Primary Dx); History of breast cancer; Encounter for screening mammogram for malignant neoplasm of breast Start: 11-03-2024 End: 11-03-2024 Patient encounter procedure Lena Fleming APRN.LIVESTOCK LABORER Work Phone: Hematology/Oncology Start: 11-03-2024 End: 11-03-2024 ambulatory Lena Fleming APRN.LIVESTOCK LABORER Work Phone: Hematology/Oncology Comment on above: Bloodwork Start: 11-03-2024 End: 11-03-2024 Subsequent hospital visit by physician Mri Main A10 (Large Bore/1.5t) Work Phone: MRI A10 Comment on above: Breast cancer screen ing, high risk patient [Z12.39] Start: 10-09-2024 End: 10-10-2024 Follow-up encounter Emani Ramos APRN.CNP Work Phone: [facility] Start: 10-07-2024 End: 10-07-2024 Patient encounter procedure Rodri Syed APRN.LIVESTOCK LABORER Work Phone: [facility] Comment on above: Urinary frequency (P rimary Dx); Urinary tract infection without hematuria, site unspecified Start: 10-07-2024 End: 10-07-2024 ambulatory ZENY RICARDO Facility:[facility] Start: 08-21-2024 End: 08-21-2024 Patient encounter procedure Janet Gutierrez NP-C -[facility] Work Phone: Start: 08-21-2024 End: 08-21-2024 ambulatory [...] patient [Z12.31] Start: 02-22-2024 End: 02-22-2024 ambulatory [facility] [place] [place]: 02-22-2024 End: 02-22-2024 ambulatory [facility] Facility:[facility] Start: 01-17-2024 End: 01-17-2024 ambulatory [facility] [place] [place] Start: 03-30-2023 Documentation procedure Mammog korey Coordinator [facility] Start: 03-30-2023 Letter encounter Mammography Coordinator [facility] Department Start: 03-30-2023 End: 03-30-2023 Follow-up encounter Lena Fleming APRN.CNP Work Phone: Hematology/Oncology Comment on above: Encounter for routin e cancer follow-up (Primary Dx); Long-term current use of tamoxifen; Breast cancer screening, high risk patient Start: 03-30-2023 End: 03-30-2023 Patient encounter procedure Lena Fleming APRN.CNP Work Phone: [facility] Start: 03-30-2023 End: 03-30-2023 Subsequent hospital [...] / Non-visit Dr. Toshia Kingsley Work Phone: [facility] Start: 10-06-2022 End: 10-06-[address] Toshia Kingsley Work Phone: [facility] Work Phone: Start: 10-06-2022 End: 10-06-[address] Toshia Kingsley Work Phone: [facility]-Pulmonary Services/Neurology Start: 10-02-2022 End: 10-02-[address] Toshia Kingsley Work Phone: [facility] Start: 09-24-2022 ambulatory Lena payton APRN.LIVESTOCK LABORER Work Phone: Hematology/Oncology Comment on above: Possible Medication interaction Start: 09-04-2022 End: 09-04-2022 Follow-up encounter eLna Fleming APRN.LIVESTOCK LABORER Work Phone: Hematology/Oncology Comment on above: Encounter for routin e cancer follow-up (Primary Dx); Encounter for screening mammogram for breast cancer; Malignant neoplasm of right breast in female, estrogen receptor positive, unspecified site of breast (HCC); Long-term current use of tamoxifen Start: 09-04-2022 End: 09-04-2022 Patient encounter procedure Lena Fleming APRN.LIVESTOCK LABORER Work Phone: [facility] Start: 09-04-2022 End: 09-04-2022 Subsequent hospital visit by physician Mri Main A10 (Large Bore/1.5t) Work Phone: MRI A10 Comment on above: Malignant neoplasm o f right breast in female, estrogen receptor positive, unspecified site of breast (HCC) [C50.911, Z17.0] Start: 08-03-2022 End: 08-03-[address] Toshia Kingsley Work Phone: [facility] Work Phone: Start: 08-03-2022 End: 08-03-[address] Toshia Kingsley Work Phone: [facility]-Laboratory, Specimen Start: 08-03-2022 End: 08-03-[address] Toshia Kingsley Work Phone: [facility] Start: 03-17-2022 End: 03-17-2022 ambulatory Huma Good MD Work Phone: Hematology/Oncology Comment on above: Malignant neoplasm o f right breast in female, estrogen receptor positive, unspecified site of breast (HCC) (Primary Dx) Start: 03-17-2022 End: 03-17-2022 Patient encounter procedure Huma Good MD Work Phone: [facility] Start: 03-10-2022 ambulatory Lena payton PRECISION AGRONOMIST.LIVESTOCK LABORER Work Phone: Hematology/Oncology Comment on above: Bone density test Start: 11-02-2021 End: 11-02-2021 Patient encounter procedure Ken Wolf APRN.LIVESTOCK LABORER Work Phone: [facility] Comment on above: Bacterial sinusitis (Primary Dx) Start: 10-12-2021 ambulatory Huma Good MD Work Phone: Hematology/Oncology Comment on above: Diagnostic code that is being denied by my insurance Start: 08-31-2021 End: 08-31-2021 Patient encounter procedure Ralph Javier DO Work Phone: [facility] Comment on above: Foot pain, right (Pr imary Dx); Hallux valgus (acquired), left foot Start: 11-26-2020 End: 11-26-2020 Subsequent hospital visit by physician Xr [facility] Work Phone: Radiology Comment on above: Foot pain, right [M7 9.671] Start: 01-10-2011 End: 03-25-2012 Patient encounter status Xr [facility] Work Phone: [facility] Procedures Date Procedure Procedure Detail Performing Clinician Start: 10-07-2024 Urnls dip stick/tablet rgnt auto w/o microscopy Reza Griffith PRECISION AGRONOMIST.LIVESTOCK LABORER Work Phone: Start: 04-04-2024 Dxa bone density study 1/> sites axial karlael Huma Good MD Work Phone: Start: 03-30-2023 Screening digital breast tomosynthesis samantha Fleming PRECISION AGRONOMIST.LIVESTOCK LABORER Work Phone: Start: 09-04-2022 Mri breast without&with [...] 1:30 PM EST Visit (SP) Office Hematology/Oncology [id number] [phone] [place] [address] [address] [phone] follow up Hematology/Oncology Comment on above: follow up Start: 05-26-2025 End: 05-26-2025 Patient encounter procedure 05/26/2025 12:10 PM EST Appointment Mammography [id number] [place], [place] [id number] Encounter for screening mammogram for malignant neoplasm of breast [Z12.31] Mammography Comment on above: Encounter for screen ing mammogram for malignant neoplasm of breast [Z12.31] Start: 05-05-2025 End: 12-03-2025 DBT Breast - bilateral screening DALE SCREENING W ADRIAN Radiology Routine Encounter for screening mammogram for malignant neoplasm of breast Expected: 05/05/2025, Expires: 12/03/2025 [facility] Work Phone: Comment on above: Expected: 05/05/2025 , Expires: 12/03/2025 Start: 04-04-2025 Screening for malign ant neoplasm of breast Mammogram Screening [facility] Start: 02-02-2025 Influenza vaccination Influenz a Vaccine (Season Ended) [facility] Start: 11-03-2024 End: 11-03-2024 Follow-up encounter 11/03/2024 12:00 PM EDT Visit (SP) Office Hematology/Oncology [id number] [id number] Lena Fleming, NORMAN.LIVESTOCK LABORER [address] [phone] follow up Hematology/Oncology Comment on above: follow up Start: 11-03-2024 End: 11-03-2024 Patient encounter procedure 11/03/2024 10:40 AM EDT Appointment MRI A10 [address] [id number] Breast cancer screening, high risk patient [Z12.39] MRI A10 Comment on above: Breast cancer screen ing, high risk patient [Z12.39] Start: 10-02-2024 End: 05-04-2025 MR Breast - bilateral WO and W contrast IV MRI BREAST WO/W IVCON BILATERAL Radiology Routine Breast cancer screening, high risk patient Expected: 10/02/2024, Expires: 05/04/2025 [facility] Work Phone: Comment on above: Expected: 10/02/2024 , Expires: 05/04/2025 Start: 06-17-2024 End: 06-17-2024 Patient encounter procedure 06/17/2024 3:00 PM EST Office Visit Gynecology [address] [id number] [place] [address] [place], [place] [phone] [facility] Gynecology Comment on above: [facility] Start: 04-04-2024 End: 04-04-2024 ambulatory 04/04/2024 11:00 AM EDT Visit (SP) Office Hematology/Oncology [address] [place] [address] Lena Fleming APRN.LIVESTOCK LABORER [address] [place] [address] f/u per pt req Hematology/Oncology Comment on above: f/u per pt req Start: 04-04-2024 End: 04-04-2024 Patient encounter procedure Mammography Comment on above: Encounter for screen ing mammogram for high-risk patient [Z12.31] Aromatase inhibitor use [Z79.811] Start: 03-30-2024 Mammography Mammogram Screening [facility] Start: 03-30-2024 Screening for malign ant neoplasm of breast Mammogram Screening [facility] Start: 02-03-2024 Covid-19 Vaccine ( season) Covid-19 Vaccine () [facility] Start: 02-03-2024 Influenza vaccination Influenza Vacc ine (#1) [facility] Start: 12-03-2023 DIABETES SCREEN DIABETES SCREEN [facility] Start: 12-03-2023 Diabetes Screening Diabetes Screenin g [facility] Start: 09-29-2023 End: 04-28-2024 MRI BREAST WO/W IVCON BILATERAL MRI BREAST WO/W IVCON BILATERAL Radiology Routine Breast cancer screening, high risk patient Expected: 09/29/2023, Expires: 04/28/2024 [facility] Work Phone: Comment on above: Expected: 09/29/2023 , Expires: 04/28/2024 Start: 03-17-2023 Mammography [facility] Start: 03-06-2023 End: 10-04-2023 DALE SCREENING W ADRIAN DALE SCREENING W ADRIAN Radiology Routine Encounter for screening mammogram for breast cancer Expected: 03/06/2023, Expires: 10/04/2023 [facility] Work Phone: Comment on above: Expected: 03/06/2023 , Expires: 10/04/2023 Start: 02-02-2023 Covid-19 Vaccine ( season) Covid-19 Vaccine () [facility] Start: 02-02-2023 Influenza vaccination [facility] Start: 09-15-2022 End: 04-16-2023 Mri breast without&with contrast w/cad bilateral MRI BREAST WO/W IVCON BILAT Radiology Routine Malignant neoplasm of right breast in female, estrogen receptor positive, unspecified site of breast (HCC) Expected: 09/15/2022 (Approximate), Expires: 04/16/2023 [facility] Work Phone: Comment on above: Expected: 09/15/2022 (Approximate), Expires: 04/16/2023 Start: 08-03-2022 Liquid based cervica l cytology screening [facility] Start: 02-02-2022 Influenza vaccination [facility] Start: 12-02-2021 Mammography MAMMOGRAM [facility] Start: 02-02-2021 Influenza vaccination INFLUENZA (#1) [facility] Start: 01-04-2021 Lipid 1996 panel - Serum or Plasma Lipid Screening [facility] Start: 01-04-2021 Lipid panel Lipid Screening [facility] Start: 01-04-2021 LIPID SCREEN LIPID SCREEN [facility] Start: 10-07-2020 COVID-19 VACCINE (3 - Booster for Pfizer series) COVID-19 VACCINE (3 - Booster for Pfizer series) [facility] Start: 10-07-2020 Covid-19 Vaccine (3 - Pfizer series) Covid-19 Vaccine (3 - Pfizer series) [facility] Start: 09-09-2020 COVID-19 VACCINE (3 - Pfizer risk 4-dose series) COVID-19 VACCINE (3 - Pfizer risk 4-dose series) [facility] Start: 09-09-2020 COVID-19 VACCINE (3 - Pfizer risk series) COVID-19 VACCINE (3 - Pfizer risk series) [facility] Start: 2020 Pneumococcal Vaccine : 50+ (1 of 1 - PCV) Pneumococcal Vaccine: 50+ (1 of 1 - PCV) [facility] Start: 2020 SHINGRIX VACCINE (1 of 2) SHINGRIX VACCINE (1 of 2) [facility] Start: 02-12-2020 Urine microalbumin profile [facility] Start: 03-25-2017 HPV TESTING HPV TESTING [facility] Start: 03-25-2017 PAP TESTING PAP TESTING [facility] Start: 03-25-2017 Screening for malign ant neoplasm of cervix Cervical Cancer Screening [facility] Start: 12-18-2016 End: 12-18-2016 Mammogram, Bilateral Mammogram, Bilateral [facility] Start: 2015 COLOGUARD (FIT-DNA) COLOGUARD (FIT-D NA) [facility] Start: 2015 Colonoscopy COLONOSCOPY [facility] Start: 2015 COLORECTAL CANCER SCREENING COLORECTAL CANCER SCREENING [facility] Start: [address] COLONOGRAPHY [facility] Start: 2015 FECAL OCCULT BLOOD FECAL OCCULT BLOO D [facility] Start: 2015 Screening for malign ant neoplasm of colon [facility] Start: 2015 SIGMOIDOSCOPY SIGMOIDOSCOPY [facility] Start: 1989 Hepatitis B Vaccine (1 of 3 - 19+ 3-dose series) Hepatitis B Vaccine (1 of 3 - 19+ 3-dose series) [facility] Start: 1988 Anxiety Screening Anxiety Screening [facility] Start: 1988 HEPATITIS C SCREENING HEPATITIS C [facility] Start: 1988 Hepatitis C screening Hepatitis C [facility] Start: 1988 HIV SCREENING HIV SCREENING [facility] Start: 1988 HIV screening HIV Screening [facility] Start: 1976 PNEUMOCOCCAL (1 - PCV) PNEUMOCOCCAL (1 - PCV) [facility] Start: 1970 HEPATITIS B (1 of 3 - 3-dose series) HEPATITIS B (1 of 3 - 3-dose series) [facility] Start: 1970 Hepatitis B Vaccine (1 of 3 - 3-dose series) Hepatitis B Vaccine (1 of 3 - 3-dose series) [facility] Bacteria identified in Urine by Culture BACTERIAL CULTURE, URINE Microbiology Routine Urinary frequency Ordered: 10/07/2024 [facility] Work Phone: Comment on above: Ordered: 10/07/2024 DBT Breast - bilater al screening DALE SCREENING W ADRIAN Radiology Routine Encounter for screening mammogram for high-risk patient 04/04/2024 9:35 AM EDT [facility] Work Phone: End: 04-12-2023 Dxa bone density study 1/> sites axial skel DXA-AXIAL SKELETON Radiology Routine Aromatase inhibitor use 1 Occurrences starting 03/13/2022 until 04/12/2023 [facility] Work Phone: Comment on above: 1 Occurrences starti ng 03/13/2022 until 04/12/2023 End: 11-03-2024 MR Breast - bilateral WO and W contrast IV [facility] Work Phone: Comment on above: 1 Occurrences starti ng 11/03/2024 until 11/03/2024 End: 04-28-2024 MRI 3D POST PROCESSING MRI 3D POST PROCESSING Radiology Routine Breast cancer screening, high risk patient 1 Occurrences starting 03/30/2023 until 04/28/2024 [facility] Work Phone: Comment on above: 1 Occurrences starti ng 03/30/2023 until 04/28/2024 Path report.final Dx Spec [facility] Immunizations Immunization Date Immunization Notes Care Provider Mikael amaro 03-18-2020 influenza virus vaccine, unspecified formulation Huma Good MD Work Phone: [facility] 02-24-2016 influenza, injectabl e, quadrivalent, contains preservative Ralphandrea Herrera V, DO Work Phone: [facility] Work Phone: 02-11-2010 tetanus toxoid, redu kizzy diphtheria toxoid, and acellular pertussis vaccine, adsorbed Ralph Javier V, DO Work Phone: [facility] 03-17-2009 influenza virus vaccine, unspecified formulation Ralph Herrera V, DO Work Phone: [facility] Work Phone: Payers Date Payer Category Payer Self-pay [id number] Private Health Insurance [employer] A ETNA CHOICE POS II [id number] 2014-Present [phone] [address] [place] [address] POS [id number] 2014 Private Health Insurance [id number] 2014 Private Health Insurance [id number] Unknown KAVITHA [id number] Unknown [id number] Unknown [id number] Unknown [id number] Unknown [id number] Unknown [id number] Unknown [id number] Unknown [id number] Social History Date Type Detail Facility Start: 11-25-2010 End: 12-18-2024 Tobacco smoking status NHIS Never smoked tobacco [facility] Start: 08-31-2021 End: 04-04-2024 Alcohol intake Current drinker of alcohol (finding) [facility] Start: 11-01-2017 History SDOH Alcohol Comment Occasionally: 2 times per week [facility] Start: 1970 Sex Assigned At Not on file [facility] Start: 08-21-2021 End: 03-17-2022 Exposure to SARS-CoV-2 (event) Not sure [facility] Start: 11-25-2010 Tobacco use and exposure Smokeless tobacco non-user [facility] Work Phone: Start: 08-03-2022 End: 10-02-2022 Tobacco smoking status NHIS Unknown if ever smoked [facility] Start: 1970 Sex Assigned At Female W [facility] Start: 03-17-2022 End: 03-30-2023 History of Social function [facility] Start: 03-17-2022 End: 03-30-2023 Tobacco use panel [facility] Adult Depression Screening Assessment 4 [facility] Medical Equipment Procedure Code Equipment Code Equipment Origin al Text Equipment Identifier Dates Clip Endscp Flsh Smpl Rlb - [id number] Start: 01-14-2013 Comment on above: Description: FILSHIE CLIPS Matrix Alloderm Thick Acellular Dermis 16x6cm Tissue Allograft Regenerative - [id number] Start: 11-16-2017 Era-Dr-C-Kind Implant - [id number] Start: 11-16-2017 Imp Brst 650cc S sx Nimco Inspr - [id number] Start: 03-11-2018 Imp Brst 325cc S sf Nimco Inspr - [id number] Start: 03-11-2018 Functional Status Date Assessment Result Facility 11-17-2017 Are you deaf, or do you have serious difficulty hearing No 11/17/2017 9:59 AM EDT Lizbeth Moctezuma, ANAYA No [facility] 11-17-2017 Are you blind, or do you have serious difficulty seeing, even when wearing glasses No 11/17/2017 9:59 AM EDT Lizbeth Moctezuma, ANAYA No [facility] 11-17-2017 Do you have serious difficulty walking or climbing stairs No 11/17/2017 9:59 AM EDT Lizbeth Moctezuma, ANAYA No [facility] 11-17-2017 Do you have difficul ty dressing or bathing No 11/17/2017 9:59 AM EDT Lizbeth Moctezuma, ANAYA No [facility] 11-17-2017 Because of a physica l, mental, or emotional condition, do you have difficulty doing errands alone such as visiting a physician's office or shopping No 11/17/2017 9:59 AM EDT Lizbeth Moctezuma, ANAYA No [facility] Mental Status Date Assessment Result Facility 11-17-2017 Because of a physica l, mental, or emotional condition, do you have serious difficulty concentrating, remembering, or making decisions No 11/17/2017 9:59 AM EDT Lizbeth Moctezuma, ANAYA No [facility] Clinical Notes 01-10-2011 to 11-03-2024 Patient InstructionsLena Fleming APRN.[facility] - 11/03/2024 12:00 PM Giovani Morales LPN - 11/03/2024 11:36 AM Benito Iglesias RT(R) - 11/03/2024 10:40 AM EDT Note Date & Type Note Facility 11-03-2024 Instructions Lena Fleming APRN.LIVESTOCK LABORER - 11/03/2024 12:14 PM EDT We discussed [...] This prescription has been sent to your [facility] pharmacy. - You may stop taking your current daily vitamin D supplement (5,000 IU) while on the weekly high-dose prescription. - If you wish to start immediately, you can take three additional 5,000 IU pills per week until your prescription arrives. - After 6-8 weeks on the high-dose vitamin D, please follow up with your neighborhood conservation officer or primary care provider to recheck your levels and determine if you should continue this dose. We discussed your concerns about calcium, magnesium, and B vitamins: - Your calcium levels were normal in your last routine bloodwork from 2020. Calcium is typically included in standard blood panels, so you may ask your neighborhood conservation officer or primary care provider to include it in future labs. - Magnesium and B vitamin levels were not recently checked. You may discuss with your neighborhood conservation officer or primary care provider whether testing for [...] area. These results will be available in [employer] within 24-48 hours. If there are any [...] Follow-Up: - Please follow up with your neighborhood conservation officer or primary care provider to check magnesium, [...] coming in today! documented in this encounter [facility] 11-03-2024 History of Presen t illness [...] year old woman with T3N0, ER positive, KS positive, Tpn0tie negative (oncotype dx recurrence score of 14), [...] In February 2024, labs ordered by her neighborhood conservation officer revealed a vitamin D level of 25.1 [...] discussed with the Patient or Patient's Authorized Tube Cleaner. As applicable, any other physician, advance practice provider, medical student, or other health professional student that will be observing or involved in the sensitive examination for educational or training purposes was discussed with the Patient or Authorized Tube Cleaner. The Patient or Authorized Tube Cleaner has agreed to proceed with the sensitive examination. Pt was offered a alodize machine operator, but verbalized that she was comfortable with [...] t-score of -1.6 (was -1.4) IMPRESSION: T3N0, ER/KS +, Her2 negative, (oncotype dx recurrence score of 14) LOBULAR right breast cancer, s/p right mastectomy with sentinel node procedure and immediate cold roll catcher / implant reconstruction, tolerating her treatment of [...] ADRIAN - Will be in touch via [employer] with results of MRI and will reach out to pt directly if there are any noted concerns - Recommendations made from today's visit: - vitamin d 50 000 international unit(s) weekly X 6 - 8 weeks with recheck at that time (pt to follow up with SAFE DEPOSIT CLERK for repeat labs) - Encouraged ongoing monthly [...] tumor) - Mammogram and follow up with tag writer in 6 months She has been encouraged to call with any additional questions/concerns in the interim. Understanding verbalized. I spent a total of 35 minutes on the date of the service which included preparing to see the patient, [id number] patient care, completing clinical documentation, obtaining and/or [...] No Does patient want to see a Farm Mortgage Agent? No (yes to any of above refer patient to schedulers for dietitian appointment) ) Does patient have any new or increased numbness or tingling of extremities? No Does patient need any prescription refills? No Does patient have an advanced directive in place? No, Patient referred to [facility] documented in this encounter [facility] 11-03-2024 Note HNO ID: [id number] Author: LENA FLEMING APRN.CNP Service: ? Author [...] year old woman with T3N0, ER positive, KS positive, Imu5ooh negative (oncotype dx recurrence score of 14), [...] In February 2024, labs ordered by her neighborhood conservation officer revealed a vitamin D level of 25.1 [...] discussed with the Patient or Patient's Authorized Tube Cleaner. As applicable, any other physician, advance practice provider, medical student, or other health professional student that will be observing or involved in the sensitive examination for educational or training purposes was discussed with the Patient or Authorized Tube Cleaner. The Patient or Authorized Tube Cleaner has agreed to proceed with the sensitive examination. Pt was offered a alodize machine operator, but verbalized that she was comfortable with [...] Left breast inspe (more content not included)... [facility] 11-03-2024 Note HNO ID: [id number] Author: GIOVANI COSME LPN Service: ? Author Type: LICENSED NURSE Type: Progress Notes Filed: 11/03/2024 16:17 Note Text: Additional intake questions: Has the patient had fever, nausea, vomiting, diarrhea, constipation, fatigue for > 1 week? No Does the patient have a decreased appetite? No Does patient want to see a Farm Mortgage Agent? No (yes to any of above refer patient to schedulers for dietitian appointment) ) Does patient have any new or increased numbness or tingling of extremities? No Does patient need any prescription refills? No Does patient have an advanced directive in place? No, Patient referred to Resource Center Electronically Signed By: Giovani Cosme LPN [facility] 11-03-2024 History of Presen t illness Narrative [...] PATIENT PRESENTS WITH AN IMPLANTABLE OR ATTACHED INSPECTOR RAW QUARTZ: No ALLERGIES: Reviewed and unchanged CONTRAST ALLERGY: [...] TIME: 10:45 AM documented in this encounter [facility] 11-03-2024 Note HNO ID: [id number] Author: BENITO OLVERA RT(R) Service: Radiology Author [...] PATIENT PRESENTS WITH AN IMPLANTABLE OR ATTACHED INSPECTOR RAW QUARTZ: No ALLERGIES: Reviewed and unchanged CONTRAST ALLERGY: [...] DATE: November 03, 2024 TIME: 10:45 AM [facility] 10-10-2024 Telephone encounter Note Patient notified of results, verbalized understanding of instructions given. Urvashi Pepper MA [facility] 10-10-2024 Miscellaneous Notes Patient notified of [...] the appropriate antibiotic therapy. Continue as prescribed [facility] Work Phone: 10-07-2024 Note HNO ID: [id number] Author: RODRI SYED APRN.KEISHA Service: ? Author [...] (POC) - BACTERIAL CULTURE, URINE Rodri Syed APRN.LIVESTOCK LABORER History and Record Review Clinical information obtained from an independent historian. History obtained from or confirmed by: friend. Differential Diagnoses - UTI is more likely for the following reason(s): suggested by HANDP and consistent with laboratory studies Disposition The patient was discharged. Procedures [facility] 10-07-2024 History of Presen t illness Narrative [...] was discharged. Procedures documented in this encounter [facility] 08-21-2024 Evaluation note Diagnosis Onset Date [...] BMI 27.0-27.9,adult resolved November 18, 2024 1:12pm [place] [employer] Work Phone: 1(429) 137-251803-20-2025 Evaluation note* Diagnosis Onset Date Resolution Status [...] BMI 27.0-27.9,adult resolved November 18, 2024 1:12pm [place] [facility] Work Phone: 1(541) 674-999111-01-2024 Telephone encounter Note* Telephone Encounter - Breanna Marmolejo RN - 04/04/2024 4:28 PM EDT Breast Cancer Index ordered via [employer] portal as requested by Dr Huma Good. Order, pathology report and insurance information faxed to [employer]. Breanna Marmolejo RN [facility] Work Phone: 1(635) 158-808211-01-2024 Miscellaneous Notes* Telephone Encounter - Breanna Marmolejo RN - 04/04/2024 4:28 PM EDT Breast Cancer Index ordered via [employer] portal as requested by Dr Huma Good. Order, pathology report and insurance information faxed to [employer]. Breanna Marmolejo RN documented in [facility] encounter[facility] Nurse Note* Ina Garcia LPN - 04/04/2024 11:02 AM EDT Additional intake questions: Has the patient had fever, nausea, vomiting, diarrhea, constipation, fatigue for > 1 week? No Does the patient have a decreased appetite? No Does patient want to see a Farm Mortgage Agent? No (yes to any of above refer patient to schedulers for dietitian appointment) ) Does patient have any new or increased numbness or tingling of extremities? No Is patient interested in fertility information? NA Does patient need any prescription refills? Yes, LIP notified Does patient have an advanced directive in place? Yes, copies are in [facility]11-01-2024 Nurse Note* Ina Garcia LPN - 04/04/2024 11:02 AM EDT Additional intake questions: Has the patient had fever, nausea, vomiting, diarrhea, constipation, fatigue for > 1 week? No Does the patient have a decreased appetite? No Does patient want to see a Farm Mortgage Agent? No (yes to any of above refer patient to schedulers for dietitian appointment) ) Does patient have any new or increased numbness or tingling of extremities? No Is patient interested in fertility information? NA Does patient need any prescription refills? Yes, LIP notified Does patient have an advanced directive in place? Yes, copies are in SCL documented in this encounterMer[facility] History of Present illness Narrative* Lena [...] year old woman with T3N0, ER positive, KS positive, Omw4wxw negative (oncotype dx recurrence score of 14), [...] Right mastectomy with sentinel node procedure and cold roll catcher / implant reconstruction SIGNIFICANT (CANCER) FAMILY MEDICAL [...] discussed with the Patient or Patient's Authorized Tube Cleaner. Asapplicable, any other physician, advance practice provider, medical student, or other health professional student that will be observing or involved in the sensitive examination for educational or training purposes was discussed with the Patient or Authorized Tube Cleaner. The Patient or Authorized Tube Cleaner has agreed to proceed with the sensitive examination. Pt was offered a alodize machine operator, but verbalized that she was comfortable with [...] completion, [facility] breast (August 30, 2023) Normal bilateral breast MRI. Return to annual mammogram screening schedule is recommended. Bone density (April 04, 2024): Osteopenia with the lowest t-score of -1.6 (was -1.4) IMPRESSION: T3N0, ER/KS +, Her2 negative, (oncotype dx recurrence score of 14) LOBULAR right breast cancer, s/pright mastectomy with sentinel node procedure and immediate cold roll catcher / implant reconstruction, tolerating her treatment of [...] BILATERAL - Will be in touch via [employer] with results of mammogram and will reach [...] and follow up with Dr. Good or tag writer in 6 months She has been encouraged to call with any additional questions/concerns in the interim. Understanding verbalized. I spent a total of 35 minutes on the date of the service which included preparing to see the patient, [id number]-[id number] patient care, obtaining and/or reviewing separately obtained history, performing a medically appropriate examination, counseling and educating the patient/family/caregiver, ordering medications, tests, or procedures, communicating with other HCPs (not separately reported), and communicating results to the patient/family/caregiver. Lena Fleming CNP cc: MD Huma Forbes MD documented in this encounterMer[facility]11-01-2024 NoteHNO ID: [id number] Author: LENA FLEMING APRN.CNP Service: ? Author [...] year old woman with T3N0, ER positive, KS positive, Ecp5qpk negative (oncotype dx recurrence score of 14), [...] Right mastectomy with sentinel node procedure and cold roll catcher / implant reconstruction SIGNIFICANT (CANCER) FAMILY MEDICAL [...] discussed with the Patient or Patient's Authorized Tube Cleaner. As applicable, any other physician, advance practice provider, medical student, or other health professional student that will be observing or involved in the sensitive examination for educational or training purposes was discussed with the Patient or Authorized Tube Cleaner. The Patient or Authorized Tube Cleaner has agreed to proceed with the sensitive examination. Pt was offered a alodize machine operator, but verbalized that she was comfortable with [...] No masses, organomegaly Extrem (more content not included)...[facility]11-01-2024 History of Present illness Narrative* Gini Yeung [...] PATIENT PRESENTS WITH AN IMPLANTABLE OR ATTACHED INSPECTOR RAW QUARTZ: No RADIOLOGY DEPARTMENT: Bone Density PERIPHERAL IV DATA: Not applicable SIGNED BY: RT Rachelle(Nikolai) April 04, 2024 10:09 AM documented in this encounterMer[facility]11-01-2024 NoteHNO ID: [id number] Author: GINI YEUNG RT(Nikolai) Service: ? Author Type: Technologist Type: [...] PATIENT PRESENTS WITH AN IMPLANTABLE OR ATTACHED INSPECTOR RAW QUARTZ: No RADIOLOGY DEPARTMENT: Bone Density PERIPHERAL IV DATA: Not applicable SIGNED BY: RT Rachelle(Nikolai) April 04, 2024 10:09 [facility]11-01-2024 History of Present illness Narrative* Mara [...] PATIENT PRESENTS WITH AN IMPLANTABLE OR ATTACHED INSPECTOR RAW QUARTZ: No RADIOLOGY DEPARTMENT: Mammography PERIPHERAL IV DATA: Not applicable SIGNED BY: RT Champ(Nikolai) April 04, 2024 11:00 AM documented in this encounterMercy [facility] Hospital11-01-2024 NoteHNO ID: [id number] Author: MARA WEBER RT(R) Service: ? Author Type: Marketing Services Coordinator Type: Progress Notes Filed: 04/04/2024 11:00 Note [...] PATIENT PRESENTS WITH AN IMPLANTABLE OR ATTACHED INSPECTOR RAW QUARTZ: No RADIOLOGY DEPARTMENT: Mammography PERIPHERAL IV DATA: Not applicable SIGNED BY: RT Champ(R) April 04, 2024 11:00 [facility]10-27-2023 History of Present illness Narrative* Lena Fleming APRN.LIVESTOCK LABORER - 03/30/2023 10:09 AM EDT Some elements [...] year old woman with T3N0, ER positive, KS positive, Wgj6nqh negative (oncotype dx recurrence score of 14), [...] Right mastectomy with sentinel node procedure and cold roll catcher / implant reconstruction SIGNIFICANT (CANCER) FAMILY MEDICAL [...] the lowest t-score of -1.4 IMPRESSION: T3N0, ER/KS +, Her2 negative, (oncotype dx recurrence score of 14) LOBULAR right breast cancer, s/pright mastectomy with sentinel node procedure and immediate cold roll catcher / implant reconstruction, tolerating her treatment of [...] which included preparing to see the patient, ysme-iq-hhai patient care, completing clinical documentation, obtaining and/or reviewing separately obtained history, performing a medically appropriate examination, counseling and educating the patient/family/caregiver, ordering medications, tests, or procedures, and communicating results to the patient/family/caregiver. Lena Fleming CNP cc: MD Huma Forbes MD documented in this encounterMercy [facility] Hospital10-27-2023 Miscellaneous Notes* Letter - Coordinator, Mammography - 03/30/2023 9:34 AM EDT March 30, 2023 PID: [id number] Francia Bermudez [address] [place] [address] Dear Hakeem Lara, We are pleased to [...] report will be kept [facility] at [facility] as part of your permanent medical record and are available for your continuing care. Thank you for allowing us to help in meeting your health care needs. Sincerely, Dr. Willis Interpreting Radiologist [facility] (Normal over 40) documented in this encounterMercy [facility] Hospital10-27-2023 Nurse Note* Phyllis Rodriguez RN - 03/30/2023 9:32 AM EDT Additional intake questions: Has the patient had fever, nausea, vomiting, diarrhea, constipation, fatigue for > 1 week? No Does the patient have a decreased appetite? No Does patient want to see a Farm Mortgage Agent? No (yes to any of above refer patient to schedulers for dietitian appointment) ) Does patient have any new or increased numbness or tingling of extremities? No Is patient interested in fertility information? NA Does patient need any prescription refills? No Does patient have an advanced directive in place? Yes, copies are in [facility] Electronically Signed By: Phyllis Rodriguez RN documented in this encounterMercy [facility] Hospital10-27-2023 History of Present illness Narrative* Mara [...] 30, 2023 8:53 AM documented in this encounterMercy [facility] Hospital04-03-2023 Nurse Note* Brianna Snider RN - 09/04/2022 11:21 AM EDT Additional intake questions: Has the patient had fever, nausea, vomiting, diarrhea, constipation, fatigue for > 1 week? No Does the patient have a decreased appetite? No Does patient want to see a Farm Mortgage Agent? No (yes to any of above refer patient to schedulers for dietitian appointment) ) Does patient have any new or increased numbness or tingling of extremities? No Is patient interested in fertility information? No Does patient need any prescription refills? No Does patient have an advanced directive in place? Yes, copies are in Epic documented in this encounterMercy [facility] Hospital04-03-2023 History of Present illness Narrative* Lena [...] year old woman with T3N0, ER positive, KS positive, Czk8npp negative (oncotype dx recurrence score of 14), [...] options, including an oral medication that her SAFE DEPOSIT CLERK has considered initiating, pt unsure of name, however notes that it can sometimes help with depression(may be Wellbutrin and discussed the potential interaction with the same given the CYP-2D6 pathway of both Wellbutrin and tamoxifen, however benefits may outweigh risk and encouraged to discuss concerns with her SAFE DEPOSIT CLERK if indeed it is Wellbutrin) She otherwise [...] up with him regularly, noting that her SAFE DEPOSIT CLERK manages a lot of health maintenance items. REVIEW OF SYSTEMS: The remainder of the review of systems is unremarkable. PERSONAL MEDICAL HISTORY: Hyperlipidemia Insomnia Right breast cancer (LOBULAR; September 2017) Pathogenic RAD51C mutation PERSONAL SURGICAL HISTORY: Hysteroscopy / D&C Ligate fallopian tubes Bilateral breast implants (1993, 2003) Right mastectomy with sentinel node procedure and cold roll catcher / implant reconstruction SIGNIFICANT (CANCER) FAMILY MEDICAL [...] the lowest t-score of -1.4 IMPRESSION: T3N0, ER/KS +, Her2 negative, (oncotype dx recurrence score of 14) LOBULAR right breast cancer, s/pright mastectomy with sentinel node procedure and immediate cold roll catcher / implant reconstruction, tolerating her treatment of [...] December 2022) - Encouraged discussion with her SAFE DEPOSIT CLERK regarding the potential recommendations for weight loss [...] which included preparing to see the patient, jkyk-[id number]-zktt patient care, completing clinical documentation, obtaining and/or reviewing separately obtained history, performing a medically appropriate examination, counseling and educating the patient/family/caregiver, ordering medications, tests, or procedures, and communicating results to the patient/family/caregiver. Lena Fleming CNP cc: MD Huma Forbes MD documented in this encounterMercy [facility] Hospital04-03-2023 History of Present illness Narrative* RT [...] 2022 TIME: 9:07 AM documented in this encounterMercy [facility] Hospital03-02-2023 NotePap Smear Specimen AdequacyMarch 2022 12:59amComment.Satisfactory for evaluation. Endocervical and/or squamous metaplasticcells (endocervical component)are present.[facility] INTERFACED A#[id number] Clinic Marymount HospitalComment on above:Satisfactory for evaluation. Endocervical and/or squamous metaplasticcells (endocervical component)are present.03-17-2022 Nurse Note* Brianna Wyatt RN - 03/17/2022 9:10 AM EDT Additional intake questions: Has the patient had fever, nausea, vomiting, diarrhea, constipation, fatigue for > 1 week? No Does the patient have a decreased appetite? No Does patient want to see a Farm Mortgage Agent? 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 EXAMINATION: Blood pressure [...] improvement (lowest T-score -0.9) IMPRESSION: Stage IB [id number] right breast cancer, s/p right mastectomy and [...] when available. We will schedule follow-up with Lena Fleming CNP in about 6 months with [...] which included preparing to see the patient, msbi-zs-nbwe patient care, completing clinical documentation, performing a medically appropriate examination, counseling and educating the patient/family/caregiver, ordering medications, tests, or procedures, and communicating results to the patient/family/caregiver. Huma Good MD documented in this encounterMercy [facility] Hospital06-01-2022 History of Present illness Narrative* Ken Wolf NORMAN.LIVESTOCK LABORER - 11/02/2021 3:36 PM EDT Subjective HPI [...] Sinus: Maxillary sinus tenderness present. Mouth/Throat: Lips: [place]. Mouth: Mucous membranes are moist. Pharynx: Oropharynx [...] of care. This note was generated using [employer] software. It may contain errors in wording, punctuation, or spelling. Ken Wolf APRN.LIVESTOCK LABORER documented in this encounterMercy Health West Hospital03-30-2022 Instructions* Patient Instructions* Ralph Herrera V, DO - 08/31/2021 4:13 PM EDT Thank you for choosing the [facility] for your acute care needs. [...] physician or booking an appointment, please call [phone] or speak with any Patient Fitness And Wellness Instructor. Hours: Sunday through Sunday 7:30 am to 7:00 pm. Sunday and Sunday: 8:00 am to 2:30 pm. documented in this encounterMercy Health West Hospital03-30-2022 History of Present illness Narrative* Ralph [...] Other: See comment (none) documented in this encounterMercy Health West Hospital06-25-2021 History of Present illness Narrative* Katheryn [...] 26, 2020 9:28 AM documented in this encounterMercy Health [facility] Hospital08-09-2011 History of Past illness Narrative* Problem Noted Date Resolved Date Routine general medical exam ination at a health care facility 01/10/2011 03/25/2012 Overview: 02/2010 -- yearly check with Cristopher Arevalo (LIVESTOCK LABORER) 01/10/2011, establish care from Dr. Herrera documented as of this encounter (statuses as of 08/31/2021) [facility] of Past illness Narrative* Problem Noted Date Resolved Date Routine general medical exam ination at a health care facility 01/10/2011 03/25/2012 Overview: 02/2010 -- yearly check with Cristopher Arevalo (KEISHA) 01/10/2011, establish care from Dr. Herrera documented as of this encounter (statuses as of 10/17/2021) [facility] of Past illness Narrative* Problem Noted Date Resolved Date Routine general medical exam ination at a health care facility 01/10/2011 03/25/2012 Overview: 02/2010 -- yearly check with Cristopher Arevalo (KEISHA) 01/10/2011, establish care from Dr. Herrera documented as of this encounter (statuses as of 11/02/2021) [facility] of Past illness Narrative* Problem Noted Date Resolved Date Routine general medical exam ination at a health care facility 01/10/2011 03/25/2012 Overview: 02/2010 -- yearly check with Cristopher Arevalo (KEISHA) 01/10/2011, establish care from Dr. Herrera documented as of this encounter (statuses as of 03/13/2022) [facility] illness Narrative* Problem Noted Date Resolved Date Routine general medical exam ination at a health care facility 01/10/2011 03/25/2012 Overview: 02/2010 -- yearly check with Cristopher Arevalo (KEISHA) 01/10/2011, establish care from Dr. Herrera documented as of this encounter (statuses as of 03/17/2022) [facility] illness Narrative* Problem Noted Date Resolved Date Routine general medical exam ination at a health care facility 01/10/2011 03/25/2012 Overview: 02/2010 -- yearly check with Cristopher Arevalo (KEISHA) 01/10/2011, establish care from Dr. Herrera documented as of this encounter (statuses as of 09/04/2022) [facility] illness Narrative* Problem Noted Date Resolved Date Routine general medical exam ination at a health care facility 01/10/2011 03/25/2012 Overview: 02/2010 -- yearly check with Cristopher Arevalo (KEISHA) 01/10/2011, establish care from Dr. Herrera documented as of this encounter (statuses as of 09/05/2022) [facility] Narrative* Problem Noted Date Resolved Date Routine general medical exam ination at a health care facility 01/10/2011 03/25/2012 Overview: 02/2010 -- yearly check with Cristopher Arevalo (KEISHA) 01/10/2011, establish care from Dr. Herrera documented as of this encounter (statuses as of 09/25/2022) [facility] Narrative* Problem Noted Date Diagnosed Date Resolved Date Routine general medical exam ination at a health care facility 01/10/2011 03/25/2012 Overview: 02/2010 -- yearly check with Cristopher Arevalo (KEISHA) 01/10/2011, establish care from Dr. Herrera documented as of this encounter (statuses as of 02/28/2023) [facility] Narrative* Problem Noted Date Diagnosed Date Resolved Date Routine general medical exam ination at a health care facility 01/10/2011 03/25/2012 Overview: 02/2010 -- yearly check with Cristopher Arevalo (KEISHA) 01/10/2011, establish care from Dr. Herrera documented as of this encounter (statuses as of 03/14/2023) [facility] Narrative* Problem Noted Date Diagnosed Date Resolved Date Routine general medical exam ination at a health care facility 01/10/2011 03/25/2012 Overview: 02/2010 -- yearly check with Cristopher Arevalo (KEISHA) 01/10/2011, establish care from Dr. Herrera documented as of this encounter (statuses as of 03/31/2023) [facility] Narrative* Problem Noted Date Diagnosed Date Resolved Date Routine general medical exam ination at a health care facility 01/10/2011 03/25/2012 Overview: 02/2010 -- yearly check with Cristopher Arevalo (KEISHA) 01/10/2011, establish care from Dr. Herrera documented as of this encounter (statuses as of 03/31/2023) [facility] illness Narrative* Problem Noted Date Diagnosed Date Resolved Date Routine general medical exam ination at a health care facility 01/10/2011 03/25/2012 Overview: 02/2010 -- yearly check with Cristopher Arevalo (KEISHA) 01/10/2011, establish care from Dr. Herrera documented as of this encounter (statuses as of 04/03/2023) [facility] Diagnosis Foot pain, right- Primary Pain in limb Hallux valgus (acquired), left foot documented in this encounter [facility]* Diagnosis Bacterial sinusitis- Primary Unspecified sinusitis (chronic) documented [facility] this encounter [facility]* Diagnosis Aromatase inhibitor use- Primary Use of aromatase inhibitors documented [facility]* Diagnosis Malignant neoplasm of right breast in female, estrogen receptor positive, unspecified site of breast (HCC)- Primary documented in [facility] encounter [facility]* Diagnosis Onset Date Resolution Status Genetic defect acute [facility] Work Phone: Evaluation note* Diagnosis Encounter for routine cancer follow-up- Primary Other follow-up examination Encounter for screening mammogram for breast cancer Malignant neoplasm of right breast in female, estrogen receptor positive, unspecified site of breast (HCC) Long-term current use of tamoxifen [facility]* Diagnosis Malignant neoplasm of right breast in female, estrogen receptor positive, unspecified site of breast (HCC) documented [facility] this [facility]* Diagnosis Onset Date Resolution Status BMI 32.0-32.9,adult acute Breast cancer acute Decreased libido acute High cholesterol acute Other obesity acute Sleep apnea acute [facility] Work Phone: Evaluation note* Diagnosis Encounter for screening mammogram for breast cancer [facility] Diagnosis Encounter for routine cancer follow-up- Primary Other follow-up examination Long-term current use of tamoxifen Breast cancer screening, high risk patient Screening mammogram for high-risk patient [facility]* Diagnosis Foot pain, right Pain in limb [facility]* Diagnosis Aromatase inhibitor use Use of aromatase inhibitors [facility]* Diagnosis Encounter for screening mammogram for high-risk patient [facility]* Diagnosis Malignant neoplasm of right breast in female, estrogen receptor positive, unspecified site of breast (HCC)- Primary Long-term current use of tamoxifen Sexual dysfunction in female Breast cancer screening, high risk patient Screening mammogram for high-risk patient [facility]* Diagnosis Malignant neoplasm of upper-inner quadrant of right breast in female, estrogen receptor positive (HCC)- Primary [facility]* Diagnosis Urinary frequency- Primary Urinary tract infection without hematuria, site unspecified [facility]* Diagnosis Encounter for routine cancer follow-up- Primary Other follow-up examination History of breast cancer Personal history of malignant neoplasm of breast Encounter for screening mammogram for malignant neoplasm of breast Other screening mammogram documented in this encounter [facility] note* Diagnosis Breast cancer screening, high risk patient Screening mammogram for high-risk patient [facility] (n[facility]ative)* Diagnostic Procedure Only (Routine) - Authorized Specialty Diagnoses / Procedures Referred By León kelley Referred To Contact BR IMAGING Diagnoses Encounter for screening mammogram for breast cancer Procedures DALE SCREENING W ADRIAN SCREENING DIGITAL BREAST TOMOSYNTHESIS BI SCREENING MAMMOGRAPHY BI 2-VIEW BREAST INC Lena Hoffmann APRN.CNP [address] [place] [address] Br Imaging [address] [place] [address] Referral ID Status Reason Start Date Expiration Date Visits Requested Visits Authorized [id number] Authorized Auto-Generat ed Referral 03/06/2023 10/04/2023 1 1 [facility] for referral (narrative)* Diagnostic Procedure Only (Routine) - Closed Specialty Diagnoses / Procedures Referred By León kelley Referred To Contact BR IMAGING Diagnoses Encounter for screening mammogram for breast cancer Procedures DALE SCREENING W ADRIAN SCREENING DIGITAL BREAST TOMOSYNTHESIS BI SCREENING MAMMOGRAPHY BI 2-VIEW BREAST INC Lena Hoffmann NORMAN.KEISHA [address] [place] [address] Br Imaging [address] [facility] [place] [address] Referral ID Status Reason Start Date Expiration Date V isits Requested Visits Authorized [id number] Closed Auto-Generate d Referral 03/06/2023 10/04/2023 1 1 [facility] for referral (narrative)* Diagnostic Procedure Only (Routine) - Closed Specialty Diagnoses / Procedures Referred By Contac t Referred To Contact XR IMAGING Diagnoses Aromatase inhibitor use Procedures [place] [address] [phone] [place] [address] Referral ID Status Reason Start Date Expiration Date V isits Requested Visits Authorized [id number] Closed Auto-Generate d Referral 03/31/2024 09/28/2024 1 1 [facility] for referral (narrative)No reason for referral information [facility] Work Phone: Reason for visit Narrative* Diagnostic Procedure Only (Routine) - Closed Specialty Diagnoses / Procedures Referred By Contac t Referred To Contact XR IMAGING Diagnoses Aromatase inhibitor use Procedures [place] [address] [place] [address] [place] [address] Referral ID Status Reason Start Date Expiration Date V isits Requested Visits Authorized [id number] Closed Auto-Generate d Referral 03/31/2024 09/28/2024 1 1 [facility] Advance Directives No Advanced Directives Records FoundDocuments on File Type Date Recorded Patient Tube Cleaner Expl anation Advance Directive(s) 11/05/2018 2:58 PM Advance Directive(s) 03/11/2018 11:21 AM Advance Directive(s) 11/01/2017 2:09 PM Advance Directive(s) 11/01/2017 4:00 PM Advance Directive(s) 01/11/2016 9:39 AM Documents on File Type Date Recorded Patient Tube Cleaner Expl anation Advance Directive(s) 11/01/2017 4:00 PM Documents on File Type Date Recorded Patient Tube Cleaner Expl anation Advance Directive(s) 11/01/2017 4:00 PM Reason for Referral Specialty Diagnoses / Procedures [facility] To [facility] Diagnoses Malignant neoplasm of right breast in female, estrogen receptor positive, unspecified site of breast (HCC) Procedures MRI BREAST WO/W IVCON BILAT MRI BREAST WITHOUT&WITH CONTRAST W/[place] [address] [phone] Mr Imaging Referral ID Status Reason Start Date Expiration Date Visits Requested Visits Authorized [id number] Pending Review Auto-Generat ed Referral 09/15/2022 04/16/2023 1 1 Referral ID Status Reason Start Date Expiration Date V isits Requested Visits Authorized [id number] Closed Auto-Generate d Referral 09/15/2022 04/16/2023 1 1 [facility]ty Diagnoses / Procedures [facility] To Contact [facility] Diagnoses Breast cancer screening, high risk patient Procedures MRI 3D POST PROCESSING 3D RENDERING W/INTERP&POSTPROC DIFF WORK STATION Lena Fleming, NORMAN.LIVESTOCK LABORER [address] [place], [place] [id number] Mr Imaging [facility]95 Referral ID Status Reason Start Date Expiration Date Visits Requested Visits Authorized [id number] Pending Review Auto-Generat ed Referral 04/28/2024 1 1 Specialty Diagnoses / Procedures [facility] To Contact MR [facility] Diagnoses Breast cancer screening, high risk patient Procedures MRI BREAST WO/W IVCON BILATERAL MRI BREAST WITHOUT&WITH CONTRAST W/CAD BILATERAL Lena Fleming, NORMAN.LIVESTOCK LABORER [address] [phone] Mr Imaging [facility]95 Referral ID Status Reason Start Date Expiration Date Visits Requested Visits Authorized [id number] Pending Review Auto-Generat ed Referral 08/29/2023 04/28/2024 1 1 Referral ID Status Reason Start Date Expiration Date Visits Requested Visits Authorized [id number] New Request Auto-Generat ed Referral 10/02/2024 05/04/2025 1 1 Chief Complaint and Reason for Visit Chief Complaint Annual (SAFE DEPOSIT CLERK) 3+years Reason for Visit Genetic defect Chief Complaint Annual (SAFE DEPOSIT CLERK) 3+years Weight Management Consult HYPERCHOLESTEROLEMIA HIGH CHOLESTEROL [...] or prosecute any alcohol or drug abuse patient.[facility] HospitalIn the event this information is protected by the Federal Confidentiality of Alcohol and Drug Abuse Patient Records regulations: The Federal rules restrict any use of the information to criminally investigate or prosecute any alcohol or drug abuse patient.[facility] HospitalIn the event this information is protected by the Federal Confidentiality of Alcohol and Drug Abuse Patient Records regulations: The Federal rules restrict any use of the information to criminally investigate or prosecute any alcohol or drug abuse patient.[facility] HospitalIn the event this information is protected by the Federal Confidentiality of Alcohol and Drug Abuse Patient Records regulations: The Federal rules restrict any use of the information to criminally investigate or prosecute any alcohol or drug abuse patient.[facility] HospitalIn the event this information is protected by the Federal Confidentiality of Alcohol and Drug Abuse Patient Records regulations: The Federal rules restrict any use of the information to criminally investigate or prosecute any alcohol or drug abuse patient.[facility] HospitalIn the event this information is protected by the Federal Confidentiality of Alcohol and Drug Abuse Patient Records regulations: The Federal rules restrict any use of the information to criminally investigate or prosecute any alcohol or drug abuse patient.[facility] HospitalIn the event this information is protected by the Federal Confidentiality of Alcohol and Drug Abuse Patient Records regulations: The Federal rules restrict any use of the information to criminally investigate or prosecute any alcohol or drug abuse patient.[facility] HospitalIn the event this information is protected by the Federal Confidentiality of Alcohol and Drug Abuse Patient Records regulations: The Federal rules restrict any use of the information to criminally investigate or prosecute any alcohol or drug abuse patient.[facility] HospitalIn the event this information is protected by the Federal Confidentiality of Alcohol and Drug Abuse Patient Records regulations: The Federal rules restrict any use of the information to criminally investigate or prosecute any alcohol or drug abuse patient.[facility] HospitalIn the event this information is protected by the Federal Confidentiality of Alcohol and Drug Abuse Patient Records regulations: The Federal rules restrict any use of the information to criminally investigate or prosecute any alcohol or drug abuse patient.[facility] HospitalIn the event this information is protected by the Federal Confidentiality of Alcohol and Drug Abuse Patient Records regulations: The Federal rules restrict any use of the information to criminally investigate or prosecute any alcohol or drug abuse patient.[facility] HospitalIn the event this information is protected by the Federal Confidentiality of Alcohol and Drug Abuse Patient Records regulations: The Federal rules restrict any use of the information to criminally investigate or prosecute any alcohol or drug abuse patient.[facility] HospitalIn the event this information is protected by the Federal Confidentiality of Alcohol and Drug Abuse Patient Records regulations: The Federal rules restrict any use of the information to criminally investigate or prosecute any alcohol or drug abuse patient.[facility] HospitalIn the event this information is protected by the Federal Confidentiality of Alcohol and Drug Abuse Patient Records regulations: The Federal rules restrict any use of the information to criminally investigate or prosecute any alcohol or drug abuse patient.[facility] HospitalIn the event this information is protected by the Federal Confidentiality of Alcohol and Drug Abuse Patient Records regulations: The Federal rules restrict any use of the information to criminally investigate or prosecute any alcohol or drug abuse patient.[facility] HospitalIn the event this information is protected by the Federal Confidentiality of Alcohol and Drug Abuse Patient Records regulations: The Federal rules restrict any use of the information to criminally investigate or prosecute any alcohol or drug abuse patient.[facility] HospitalIn the event this information is protected by the Federal Confidentiality of Alcohol and Drug Abuse Patient Records regulations: The Federal rules restrict any use of the information to criminally investigate or prosecute any alcohol or drug abuse patient.[facility] HospitalIn the event this information is protected by the Federal Confidentiality of Alcohol and Drug Abuse Patient Records regulations: The Federal rules restrict any use of the information to criminally investigate or prosecute any alcohol or drug abuse patient.[facility] HospitalIn the event this information is protected by the Federal Confidentiality of Alcohol and Drug Abuse Patient Records regulations: The Federal rules restrict any use of the information to criminally investigate or prosecute any alcohol or drug abuse patient.[facility] HospitalIn the event this information is protected by the Federal Confidentiality of Alcohol and Drug Abuse Patient Records regulations: The Federal rules restrict any use of the information to criminally investigate or prosecute any alcohol or drug abuse patient.[facility] HospitalIn the event this information is protected by the Federal Confidentiality of Alcohol and Drug Abuse Patient Records regulations: The Federal rules restrict any use of the information to criminally investigate or prosecute any alcohol or drug abuse patient.[facility] HospitalIn the event this information is protected by the Federal Confidentiality of Alcohol and Drug Abuse Patient Records regulations: The Federal rules restrict any use of the information to criminally investigate or prosecute any alcohol or drug abuse patient.[facility] HospitalIn the event this information is protected by the Federal Confidentiality of Alcohol and Drug Abuse Patient Records regulations: The Federal rules restrict any use of the information to criminally investigate or prosecute any alcohol or drug abuse patient.[facility] HospitalIn the event this information is protected by the Federal Confidentiality of Alcohol and Drug Abuse Patient Records regulations: The Federal rules restrict any use of the information to criminally investigate or prosecute any alcohol or drug abuse patient.[facility] HospitalIn the event this information is protected by the Federal Confidentiality of Alcohol and Drug Abuse Patient Records regulations: The Federal rules restrict any use of the information to criminally investigate or prosecute any alcohol or drug abuse patient.[facility] HospitalIn the event this information is protected by the Federal Confidentiality of Alcohol and Drug Abuse Patient Records regulations: The Federal rules restrict any use of the information to criminally investigate or prosecute any alcohol or drug abuse patient.[facility] HospitalIn the event this information is protected by the Federal Confidentiality of Alcohol and Drug Abuse Patient Records regulations: The Federal rules restrict any use of the information to criminally investigate or prosecute any alcohol or drug abuse patient.[facility] Reason for Visit (unrecogniz ed section and content) Reason Comments Radiology Mammogram Specialty Diagnoses / Procedures Referred By Contac t Referred To Contact BR IMAGING Diagnoses Encounter for screening mammogram for breast cancer Procedures DALE SCREENING W ADRIAN SCREENING DIGITAL BREAST TOMOSYNTHESIS BI SCREENING MAMMOGRAPHY BI 2-VIEW BREAST INC CAD Lena Fleming, NORMAN.LIVESTOCK LABORER [address] [place] [address] Br Imaging [address] [place] [address] Referral ID Status Reason Start Date Expiration Date V isits Requested Visits Authorized [id number] Closed Auto-Generate d Referral 03/06/2023 10/04/2023 1 1 Reason Comments Established Patient right foot pain x-ra y: 11/26/2020 Reason Comments Nasal Congestion sinus, cough, loss o f voice, BELLE x 7 days Reason Comments Established Patient Referral ID Status Reason Start Date Expiration Date V isits Requested Visits Authorized [id number] Closed Auto-Generate d Referral 07/25/2021 08/24/2022 1 1 Reason Comments Radiology MRI Specialty Diagnoses / Procedures Referred By Contac t Referred To Contact MR IMAGING Diagnoses Malignant neoplasm of right breast in female, estrogen receptor positive, unspecified site of breast (HCC) Procedures MRI BREAST WO/W IVCON BILAT MRI BREAST WITHOUT&WITH CONTRAST W/[place] [address] [place] [address] Mr Imaging Referral ID Status Reason Start Date Expiration Date V isits Requested Visits Authorized [id number] Closed Auto-Generate d Referral 09/15/2022 04/16/2023 1 [...] 2-[place] [address] [place] [address] Br Imaging [address] [place] [address] Referral ID Status Reason Start Date Expiration Date V isits Requested Visits Authorized [id number] Closed Auto-Generate d Referral 03/31/2024 09/28/2024 1 [...] BREAST WITHOUT&WITH CONTRAST W/CAD BILATERAL Lena Fleming APRN.LIVESTOCK LABORER [address] [place] [address] Phone: tel: fax: MR IMAGING [facility]95 Referral ID Status Reason Start Date Expiration Date V isits Requested Visits Authorized [id number] Closed Auto-Generate d Referral 11/03/2024 06/03/2025 1 1 Care Teams (unrecognized sec tion and content) Country Printer Apprentice Relationship Specialty Start Date End Date Zeny Ricardo MD [address] [place] [address] PCP - General Family Practice 11/26/20 Breanna Marmolejo RN Specialty Electronics Technician Hematology/Oncology 12/02/20 Country Printer Apprentice Relationship Specialty Start Date End Date Zeny Ricardo MD [address] [place], [place] [id number] PCP - General Family Practice 11/26/20 Breanna Marmolejo RN Specialty Electronics Technician Hematology/Oncology 12/02/20 Country Printer Apprentice Relationship Specialty Start Date End Date Zeny Ricardo MD [address] [place], [place] [id number] PCP - General Family Practice 11/26/20 Breanna Marmolejo RN Specialty Electronics Technician Hematology/Oncology 12/02/20 Country Printer Apprentice Relationship Specialty Start Date End Date Zeny Ricardo MD [address] [place] [address], [place] [id number] PCP - General Family Medicine 11/26/20 Breanna Marmolejo RN Specialty Electronics Technician Hematology/Oncology 12/02/20 Country Printer Apprentice Relationship Specialty Start Date End Date Zeny Ricardo MD [address] [facility], [place] [address] PCP - General Family Medicine 11/26/20 Breanna Marmolejo RN Specialty Electronics Technician Hematology/Oncology 12/02/20 Team Status: Active Member Role Status Dates Dr. Toshia Kingsley MD Family Provider Active Dr. Toshia Kingsley MD Primary Care Provider Active Team Status: Inactive Member Role Status Dates Dr. Toshia Kingsley MD Primary Care Provider, [facility] ([place], [place]) Provider Active Dr. Alexia Porter MD Attending Provider Active Team Status: Inactive Member Role Status Dates Dr. Toshia Kingsley MD Primary Care Provider Active Dr. Alexia Porter MD Attending Provider Active Country Printer Apprentice Relationship Specialty Start Date End Date Zeny Ricardo MD [address] [facility], [place] [id number] PCP - General Family Medicine 11/26/20 Breanna Marmolejo RN Specialty Electronics Technician Hematology/Oncology 12/02/20 Country Printer Apprentice Relationship Specialty Start Date End Date Zeny Ricardo MD [address] [facility], [place] [address] PCP - General Family Medicine 11/26/20 Breanna Marmolejo RN Specialty Electronics Technician Hematology/Oncology 12/02/20 Country Printer Apprentice Relationship Specialty Start Date End Date Zeny Ricardo MD [address] [facility], [place] [id number] PCP - General Family Medicine 11/26/20 Breanna Marmolejo RN Specialty Electronics Technician Hematology/Oncology 12/02/20 Elizabeth Pak LISW Hogshead Packer 09/05/22 Team Status: Active Member Role Status [...] Ricardo MD Primary Care Provider Activ e Country Printer Apprentice Relationship Specialty Start Date End Date Zeny Ricardo MD [address] [facility] [place], [place] [address] PCP - General Family Medicine 11/26/20 Breanna Marmolejo RN Specialty Electronics Technician Hematology/Oncology 12/02/20 Elizabeth Pak LISW Hogshead Packer 09/05/22 Country Printer Apprentice Relationship Specialty Start Date End Date Zeny Ricardo MD [address] [facility] [place], [place] [address] PCP - General Family Medicine 11/26/20 Breanna Marmolejo RN Specialty Electronics Technician Hematology/Oncology 12/02/20 Elizabeth Pak LISW Hogshead Packer 09/05/22 Country Printer Apprentice Relationship Specialty Start Date End Date Zeny Ricardo MD [address] [place] [address] PCP - General Family Medicine 11/26/20 Breanna Marmolejo RN Specialty Electronics Technician Hematology/Oncology 12/02/20 Elizabeth Pak LISW Hogshead Packer 09/05/22 Country Printer Apprentice Relationship Specialty Start Date End Date Zeny Ricardo MD [address] [place], [place] [address] PCP - General Family Medicine 11/26/20 Breanna Marmolejo, RN Specialty Electronics Technician Hematology/Oncology 12/02/20 Elizabeth Pak LISW Hogshead Packer 09/05/22 Country Printer Apprentice Relationship Specialty Start Date End Date Zeny Ricardo MD [address] [place], [place] [address] PCP - General Family Medicine 11/26/20 Breanna Marmolejo, RN Specialty Electronics Technician Hematology/Oncology 12/02/20 Elizabeth Pak LISW Hogshead Packer 09/05/22 Country Printer Apprentice Relationship Specialty Start Date End Date Zeny Ricardo MD [address] [place], [place] [id number] PCP - General Family Medicine 11/26/20 Country Printer Apprentice Relationship Specialty Start Date End Date Zeny Ricardo MD [address] [place] [address] PCP - General Family Medicine 11/26/20 Breanna Marmolejo, ANAYA Specialty Electronics Technician Hematology/Oncology 12/02/20 Elizabeth Pak LISW Hogshead Packer 09/05/22 Country Printer Apprentice Relationship Specialty Start Date End Date Zeny Ricardo MD [address] [place], [place] [address] PCP - General Family Medicine 11/26/20 Breanna Marmolejo, ANAYA Specialty Electronics Technician Hematology/Oncology 12/02/20 Elizabeth Pak LISW Hogshead Packer 09/05/22 Country Printer Apprentice Relationship Specialty Start Date End Date Zeny Ricardo MD [address] [place] [place], [place] [address] PCP - General Family Medicine 11/26/20 Breanna Marmolejo RN Specialty Electronics Technician Hematology/Oncology 12/02/20 Elizabeth Pak LISW Hogshead Packer 09/05/22 Country Printer Apprentice Relationship Specialty Start Date End Date Zeny Ricardo MD [address] [place] [address] PCP - General Family Medicine 11/26/20 Breanna Marmolejo RN Specialty Electronics Technician Hematology/Oncology 12/02/20 Elizabeth Pak LISW Hogshead Packer 09/05/22 Country Printer Apprentice Relationship Specialty Start Date End Date Zeny Ricardo MD [address] [place] [address] PCP - General Family Medicine 11/26/20 Breanna Marmolejo RN Specialty Electronics Technician Hematology/Oncology 12/02/20 Elizabeth Pak LISW Hogshead Packer 09/05/22 Country Printer Apprentice Relationship Specialty Start Date End Date Zeny Ricardo MD [address] [place] [address] PCP - General Family Medicine 11/26/20 Breanna Marmolejo, RN Specialty Electronics Technician Hematology/Oncology 12/02/20 Elizabeth Pak LISW Hogshead Packer 09/05/22 Country Printer Apprentice Relationship Specialty Start Date End Date Zeny Ricardo MD [address] [facility] [place], [place] [address] PCP - General Family Medicine 11/26/20 Breanna Marmolejo, ANAYA Specialty Electronics Technician Hematology/Oncology 12/02/20 Elizabeth Pak LISW [address] [place], [place] [id number] Hogshead Packer 09/05/22 Country Printer Apprentice Relationship Specialty Start Date End Date Zeny Ricardo MD [address] [place] [address] PCP - General Family Medicine 11/26/20 Breanna Marmolejo RN Specialty Electronics Technician Hematology/Oncology 12/02/20 Elizabeth Pak LISW [address] [place], [place] [id number] Hogshead Packer 09/05/22 Country Printer Apprentice Relationship Specialty Start Date End Date Zeny Ricardo MD [address] [place] [address] PCP - General Family Medicine 11/26/20 Breanna Marmolejo, ANAYA Specialty Electronics Technician Hematology/Oncology 12/02/20 Elizabeth Pak LISW [address] [place], [place] [id number] Hogshead Packer 09/05/22 Country Printer Apprentice Relationship Specialty Start Date End Date Zeny Ricardo MD [address] [facility] [place] [address] PCP - General Family Medicine 11/26/20 Breanna Marmolejo, RN Specialty Electronics Technician Hematology/Oncology 12/02/20 Elizabeth Pak LISW [address] [place] [address] Hogshead Packer 09/05/22 Team Status: Active Member Role Status [...] section and content) DATE CREATED AUTHOR 11/05/2024 [facility] DATE CREATED AUTHOR 'S SAKSHI OLIVO 12/29/2024 [facility] FOR RECORDS PERTAINING TO PATIENTS WHO ARE [...] BE BASED ON THE PRIMARY CLINICAL RECORDS. [facility] [employer] provides no warranty or guarantee of the accuracy or completeness of information in this document.
[2025-01-01 12:15] LABS: AST(SGOT) 18 U/L (<=31); Alanine Aminotransfer ALT/SGPT 18 U/L (<=34); Albumin, Serum 4.5 g/dL (3.5-5.0); Alkaline Phosphatase 80 U/L (35-104); Anion Gap 11 (5-15); BUN 14 mg/dL (4-19); BUN/Creat Ratio 21.5 RATIO (10-20); Calcium,Total 10.1 mg/dL (7.6-11.0); Carbon Dioxide 26.2 mmol/L (21.0-32.0); Chloride 105 mmol/L (98-108); Cholesterol 254 mg/dL (<=200); Globulin 2.9 g/dL (2.2-4.2); Glucose 88 mg/dL (70-99); Low Density Lipoprotein Calc. 154 mg/dL; Potassium 4.5 mmol/L (3.3-5.1); Triglycerides 79 mg/dL; Very Low Density Lipoprotein 16 mg/dL (5-40); Vitamin D,25 Hydroxy 59.0 ng/mL (30-100); cholesterol:hdl ratio screen 3.03
== END | disposition home or self-care (01) ==
LOC: LAB 09:01
PROVIDERS: Nurse Practitioner Family; PCP Family Medicine; Referring Provider Obstetrics & Gynecology; Visit Provider Obstetrics & Gynecology
DX: E78.00 Pure hypercholesterolemia, unspecified (principal); E55.9 Vitamin D deficiency, unspecified; Z13.29 Encounter for screening for other suspected endocrine disorder; Z13.220 Encounter for screening for lipoid disorders; Z13.0 Encounter for screening for diseases of the blood and blood-forming organs and certain disorders involving the immune mechanism
CPT/HCPCS: 36415; 80053; 80061; 82306; 84439; 84443; 85025